=== PATIENT | male | born 1970 | race Caucasian/White ===

== ENCOUNTER 2019-03-09 01:38 | Emergency (ER) | payer BC, OTHER ==
[~2019-03-09] VITALS: Ht 177 cm; Wt 140.0 kg
--- NOTE | 2019-03-09 02:01 | ED Integumentary General ---
General Chief Complaint: Skin/Wound Problems Stated Complaint: HIVES Source: patient Exam Limitations: no limitations History of Present Illness Date Seen by Provider: Mar 09, 2019 Time Seen by Provider: 02:01 Initial Comments Patient complains of itchy rash all over her symptoms for the past 5 hours. He took Benadryl at home without relief. He is unsure of any allergen exposure. No shortness of breath or throat swelling. Allergies and Home Medications Allergies Coded Allergies: No Known Drug Allergies (Unverified , 03/09/19) Patient Home Medication List Home Medication List Reviewed: Yes Review of Systems Review of Systems Constitutional: no symptoms reported Respiratory: no symptoms reported Cardiovascular: no symptoms reported Musculoskeletal: no symptoms reported Skin: rash Psychiatric/Neurological: No Symptoms Reported All Other Systems Reviewed Negative Unless Noted: Yes Past Bleumfv-Cclvwn-Bbxwjc Hx Patient Social History Alcohol Use: Denies Use Recreational Drug Use: No Smoking Status: Never a Smoker 2nd Hand Smoke Exposure: No Recent Foreign Travel: No Contact w/Someone Who Travel: No Recent Hopitalizations: No Physical Abuse: No Sexual Abuse: No Mistreated: No Fear: No Past Medical History Surgeries: No Respiratory: No Cardiac: No Neurological: No Genitourinary: No Gastrointestinal: No Musculoskeletal: No Endocrine: No HEENT: No Cancer: No Psychosocial: No Integumentary: No Blood Disorders: No Physical Exam Vital Signs Capillary Refill : General Appearance: WD/WN, no apparent distress Neck: supple Cardiovascular: regular rate, rhythm Respiratory: lungs clear Gastrointestinal: soft Extremities: normal inspection Neurologic/Psychiatric: alert, normal mood/affect Skin: normal color, other (urticarial rash to arms and trunk) Progress/Results/Core Measures Progress Progress Note : Time: 02:05 Progress Note Medications (hives. He wants to see if it'll go away on its own. Advised to return if symptoms worsen. Departure Impression Primary Impression: Urticaria Disposition: 01 HOME, SELF-CARE Condition: Stable Departure-Patient Inst. Decision time for Depature: 02:06 Referrals: NO,LOCAL PHYSICIAN (PCP) Primary Care Physician Patient Instructions: Hives Add. Discharge Instructions: Benadryl for itching. All discharge instructions reviewed with patient and/or family. Voiced understanding. PRISCILLA DONOVAN MD Mar 09, 2019 02:01 POS
[2019-03-09 02:11] VITALS: BP 146/78
[2019-03-09] MEDS ORDERED: diphenhydrAMINE 50 MG/ML INJ (BENADRYL) IVP ONE (02:15)
[2019-03-09] MEDS ORDERED: methylPREDNISolone 125 MG (Solu-MEDROL) VIAL IVP ONE (02:15)
[2019-03-09] MEDS ORDERED: FAMOTIDINE 20MG/2ML IV (PEPCID) IVP ONE (02:15)
[2019-03-09] MEDS ORDERED: EPINEPHrine INJECTION 1 MG/ML AMP IM ONE (02:15)
== END 2019-03-09 02:13 | disposition home or self-care (01) ==
LOC: ER FS 01:41
DX: L50.9 Urticaria, unspecified (principal)
CPT/HCPCS: 99282

== ENCOUNTER → 2020-03-13 | Outpatient (CLI) | payer BC ==
--- NOTE | 2020-03-13 17:49 | Diagnostic Imaging Report ---
INDICATION: Shortness of breath and chest tightness. EXAMINATION: PA and lateral chest obtained at 03:12 p.m. FINDINGS: Heart and mediastinal silhouette are normal in appearance. There are mild chronic-appearing increased interstitial markings. There is no consolidation or pleural fluid or pneumothorax. IMPRESSION: Mild chronic-appearing changes with no acute abnormality in the chest. Dictated by: Dictated on workstation # [id number]
== END ==
LOC: RAD FS 15:05
PROVIDERS: ATTEND Nurse Practitioner Family
DX: R05 Cough (principal); R06.02 Shortness of breath
CPT/HCPCS: 71046

== ENCOUNTER 2021-10-23 17:30 | Day surgery (SDC) | payer BC, OTHER ==
[~2021-10-23] VITALS: Ht 175 cm; Wt 144.0 kg
[2021-10-23] MEDS ORDERED: NS IV 1000 ML 1,000 ML IV SCH (17:45)
[2021-10-23 17:47] LABS: BASOPHILS # (AUTO) 0.1 10^3/uL (0.0-0.1); BASOPHILS % (AUTO) 1 % (0-10); EOSINOPHILS # (AUTO) 0.2 10^3/uL (0.0-0.3); EOSINOPHILS % (AUTO) 2 % (0-10); HEMATOCRIT 46 % (40-54); HEMOGLOBIN 15.9 g/dL (13.3-17.7); LYMPHOCYTES # (AUTO) 2.1 10^3/uL (1.0-4.0); LYMPHOCYTES % (AUTO) 22 % (12-44); MEAN CORPUSCULAR HEMOGLOBIN 30 pg (25-34); MEAN CORPUSCULAR HGB CONC 34 g/dL (32-36); MEAN CORPUSCULAR VOLUME 86 fL (80-99); MONOCYTES # (AUTO) 0.7 10^3/uL (0.0-1.0); MONOCYTES % (AUTO) 7 % (0-12); NEUTROPHILS # (AUTO) 6.3 10^3/uL (1.8-7.8); NEUTROPHILS % (AUTO) 68 % (42-75); PLATELET COUNT 331 10^3/uL (130-400); WHITE BLOOD COUNT 9.3 10^3/uL (4.3-11.0)
[2021-10-23 18:06] LABS: ALANINE AMINOTRANSFERASE 41 U/L (0-55); ALBUMIN 5.1 GM/DL (3.2-4.5); ALKALINE PHOSPHATASE 82 U/L (40-136); BILIRUBIN,TOTAL 0.5 MG/DL (0.1-1.0); BUN/CREATININE RATIO 12; CARBON DIOXIDE 28 MMOL/L (21-32); CHLORIDE 99 MMOL/L (98-107); CREATININE SERUM 0.91 MG/DL (0.60-1.30); GFR ESTIMATED 101; GLUCOSE 128 MG/DL (70-105); POTASSIUM 3.5 MMOL/L (3.6-5.0); SODIUM 139 MMOL/L (135-145); TOTAL PROTEIN 7.9 GM/DL (6.4-8.2)
--- NOTE | 2021-10-23 18:14 | Diagnostic Imaging Report ---
EXAMINATION: Chest 1 view. HISTORY: Chest pain COMPARISON: 03/13/2020. FINDINGS: The lungs are clear without edema or pneumonia. No pleural effusion or pneumothorax. Heart size is normal. There are small scattered calcified granulomas in the lungs. IMPRESSION: Clear lungs. Dictated by: Dictated on workstation # [id number]
--- NOTE | 2021-10-23 18:38 | ED Chest Pain ---
General Chief Complaint: Chest Pain Stated Complaint: CHEST PAIN Source: patient, family Exam Limitations: no limitations History of Present Illness Date Seen by Provider: Oct 23, 2021 Time Seen by Provider: 17:43 Initial Comments 51-year-old male patient with history of hyperlipidemia and morbid obesity presented to ER with complaining of chest pain. Patient complaining of intermittent episodes of dizziness for the last 3 days that lasts about 60 seconds and usually happen with sitting position and associated with nausea and palpitation without focal neurodeficit and chest pain. Patient said episode of dizziness getting worse today and around 1600 he has had intermittent episodes of discomfort feeling in substernal area like indigestion that last less than 1 minute and repeated frequently. Patient said episode of pain was associated with episode of dizziness and complaining of mild shortness of breath. Patient stated he had sick contact with COVID at home but had negative COVID test today at urgent care. Patient was seen at urgent care yesterday and had EKG and seen again today with negative COVID test. Patient states he takes 1 baby aspirin daily. Patient denies fever, vomiting, diarrhea, sore throat, earache and congestion. Allergies and Home Medications Allergies Coded Allergies: No Known Drug Allergies (Unverified , 03/09/19) Patient Home Medication List Home Medication List Reviewed: Yes Review of Systems Review of Systems Constitutional: no symptoms reported EENTM: See HPI, Other (Chronic ear hearing) Respiratory: No Symptoms Reported Cardiovascular: See HPI Gastrointestinal: See HPI Genitourinary: No Symptoms Reported Musculoskeletal: no symptoms reported Skin: no symptoms reported Psychiatric/Neurological: See HPI Endocrine: No Symptoms Reported All Other Systems Reviewed Negative Unless Noted: Yes Past Helbzxg-Wkvteg-Zexypa Hx Past Medical History Surgeries: No Respiratory: No Cardiac: No Neurological: No Genitourinary: No Gastrointestinal: No Musculoskeletal: No Endocrine: No HEENT: No Cancer: No Psychosocial: No Integumentary: No Blood Disorders: No Physical Exam Vital Signs Vital Signs - First Documented 10/23/21 19:04 Temp 36.5 Pulse 107 Resp 20 B/P (MAP) 177/97 (123) Pulse Ox 97 O2 Delivery Room Air Capillary Refill : Height, Weight, BMI Height: '" Weight: lbs. oz. kg; 44.00 BMI Method: General Appearance: Anxious, Mild Distress HEENT: PERRL/EOMI, TMs Normal, Other Neck: Full Range of Motion, Normal Inspection, Non Tender Respiratory: Chest Non Tender, Lungs Clear, Normal Breath Sounds, No Accessory Muscle Use Cardiovascular: No Edema, No Gallop, No JVD, No Murmur, Normal Peripheral Pulses, Tachycardia Gastrointestinal: Normal Bowel Sounds, No Organomegaly Extremity: Normal Capillary Refill, Normal Inspection Skin: Normal Color Lymphatic: No Adenopathy Progress/Results/Core Measures Results/Orders Lab Results Laboratory Tests Test 10/23/21 17:30 10/23/21 17:36 Range/Units SARS-CoV-2 RNA (RT-PCR) Not Detected Not Detecte White Blood Count 9.3 4.3-11.0 10^3/uL Red Blood Count 5.36 4.30-5.52 10^6/uL Hemoglobin 15.9 13.3-17.7 g/dL Hematocrit 46 40-54 % Mean Corpuscular Volume 86 80-99 fL Mean Corpuscular Hemoglobin 30 25-34 pg Mean Corpuscular Hemoglobin Concent 34 32-36 g/dL Red Cell Distribution Width 13.2 10.0-14.5 % Platelet Count 331 130-400 10^3/uL Mean Platelet Volume 9.0 9.0-12.2 fL Immature Granulocyte % (Auto) 0 % Neutrophils (%) (Auto) 68 42-75 % Lymphocytes (%) (Auto) 22 12-44 % Monocytes (%) (Auto) 7 0-12 % Eosinophils (%) (Auto) 2 0-10 % Basophils (%) (Auto) 1 0-10 % Neutrophils # (Auto) 6.3 1.8-7.8 10^3/uL Lymphocytes # (Auto) 2.1 1.0-4.0 10^3/uL Monocytes # (Auto) 0.7 0.0-1.0 10^3/uL Eosinophils # (Auto) 0.2 0.0-0.3 10^3/uL Basophils # (Auto) 0.1 0.0-0.1 10^3/uL Immature Granulocyte # (Auto) 0.0 0.0-0.1 10^3/uL D-Dimer 0.47 0.00-0.49 UG/ML Sodium Level 139 135-145 MMOL/L Potassium Level 3.5 L 3.6-5.0 MMOL/L Chloride Level 99 98-107 MMOL/L Carbon Dioxide Level 28 21-32 MMOL/L Anion Gap 12 5-14 MMOL/L Blood Urea Nitrogen 11 7-18 MG/DL Creatinine 0.91 0.60-1.30 MG/DL Estimat Glomerular Filtration Rate 101 BUN/Creatinine Ratio 12 Glucose Level 128 H 70-105 MG/DL Calcium Level 10.0 8.5-10.1 MG/DL Corrected Calcium 8.5-10.1 MG/DL Magnesium Level 2.2 1.6-2.4 MG/DL Total Bilirubin 0.5 0.1-1.0 MG/DL Aspartate Amino Transf (AST/SGOT) 26 5-34 U/L Alanine Aminotransferase (ALT/SGPT) 41 0-55 U/L Alkaline Phosphatase 82 40-136 U/L Troponin I < 0.30 <0.30 NG/ML Total Protein 7.9 6.4-8.2 GM/DL Albumin 5.1 H 3.2-4.5 GM/DL My Orders Orders - REGLA SANTANA MD Cbc With Automated Diff (10/23/21 17:43) Chest 1 View Ap/Pa Only (10/23/21 17:43) Ekg Tracing (10/23/21 17:43) Comprehensive Metabolic Panel (10/23/21 17:43) Monitor-Rhythm Ecg Trace Only (10/23/21 17:43) Ed Iv/Invasive Line Start (10/23/21 17:43) Troponin I Fs (10/23/21 17:43) Ns Iv 1000 Ml (Sodium Chloride 0.9%) (10/23/21 17:45) Fibrin Degradation Products (10/23/21 17:43) Covid 19 Inhouse Test (10/23/21 17:57) Aspirin Chewable Tablet (Baby Aspirin Ch (10/23/21 18:45) Nitroglycerin 0.4 Mg Btl 25's (Nitrostat (10/23/21 18:45) Ondansetron Injection (Zofran Injectio (10/23/21 18:45) Lorazepam Injection (Ativan Injection) (10/23/21 19:15) Metoprolol Tartrate (Ir) Tab (Lopressor (10/23/21 19:30) Magnesium (10/23/21 19:30) Ed Admission (Communication) (10/23/21 19:39) Medications Given in ED Current Medications Medications Dose Ordered Sig/Reagan Route Start Time Stop Time Status Last Admin Dose Admin Aspirin 243 mg ONCE ONCE PO 10/23/21 18:45 10/23/21 18:46 DC 10/23/21 18:57 243 MG Lorazepam 1 mg ONCE ONCE IVP 10/23/21 19:15 10/23/21 19:17 DC 10/23/21 19:26 1 MG Metoprolol Tartrate 25 mg ONCE ONCE PO 10/23/21 19:30 10/23/21 19:31 DC 10/23/21 19:45 25 MG Ondansetron HCl 4 mg ONCE ONCE IVP 10/23/21 18:45 10/23/21 18:46 DC 10/23/21 18:57 4 MG Vital Signs/I&O 10/23/21 19:04 Temp 36.5 Pulse 107 Resp 20 B/P (MAP) 177/97 (123) Pulse Ox 97 O2 Delivery Room Air Progress Progress Note : Progress Note Evaluation of patient in ER showed 51-year-old male patient with complaining of intermittent episodes of substernal pain and dizziness. Patient had mild sinus tachycardia. CBC and CMP and COVID test was unremarkable. Chest x-ray did not show acute finding. EKG showed sinus tachycardia with unremarkable ST and T wave changes. Cardiac enzyme and CBC and CMP was unremarkable. Patient had 2 episodes of V. tach without loss of consciousness that lasted about less than 10 stated and documented in monitor. Patient felt dizzy at that time and treated with Zofran and Ativan and felt better. Dr. Hudson on-call robotic weld technician was consulted at 1927 and recommended to give patient metoprolol 25 mg p.o. 1 dose and admit patient to hospitalist at cardiac stepdown. Dr. Ceballos on-call hospitalist accepted admission at 1925. Patient and his daughter informed about test results and plan of care and need for admission and all questions addressed. Initial ECG Impression Date: Oct 23, 2021 Initial ECG Impression Time: 17:36 Comment EKG interpreted by me. EKG at 1736 showed sinus tachycardia with occasional PVCs at rate of 118, OR interval of 158 and QT interval of 321, no acute ST and T wave elevation. Diagnostic Imaging Plain Films/CT/US/NM/MRI: chest Comments Chest x-ray interpreted by radiologist and reviewed by me and showed: NAME[facility] REC#: [id number] PT STATUS: REG ER : 1970 PHYSICIAN: REGLA SANTANA MD ADMIT DATE: 10/23/21/ER FS Signed Date of Exam:10/23/21 CHEST 1 VIEW AP/PA ONLY EXAMINATION: Chest 1 view. HISTORY: Chest pain COMPARISON: 03/13/2020. FINDINGS: The lungs are clear without edema or pneumonia. No pleural effusion or pneumothorax. Heart size is normal. There are small scattered calcified granulomas in the lungs. IMPRESSION: Clear lungs. Dictated by: Dictated on workstation # [id number] Dict: 10/23/211810 Trans: 10/23/211811 [id number] Interpreted by: MARTHA BILLS MD Electronically signed by: MARTHA BILLS MD 10/23/211811 Departure Communication (Admissions) Time/Spoke to Admitting Phy: 19:26 Dr. Ceballos hospitalist accepted admission. Time/Spoke to Consulting Phy: 19:28 Dr. Hudson on-call robotic weld technician recommended to give metoprolol tartrate 25 mg p.o. and admitted to cardiac stepdown. Impression Primary Impression: Paroxysmal VT Additional Impressions: Chest pain Qualified Codes: R07.9 - Chest pain, unspecified Sinus tachycardia Morbid obesity Dizziness Disposition: 30 STILL A PATIENT Condition: Improved Admissions Decision to Admit Reason: Admit from ER (General) Decision to Admit/Date: Oct 23, 2021 Time/Decision to Admit Time: 19:28 Departure-Patient Inst. Referrals: COLIN LUA MD (PCP) Primary Care Physician REGLA SANTANA MD Oct 23, 2021 18:38
[2021-10-23] MEDS ORDERED: NITROGLYCERIN 0.4 MG SL TABS BTL 25'S SL ONE (18:45)
[2021-10-23] MEDS ORDERED: ASPIRIN 81 MG CHEW (CHILDREN'S ASA) PO ONE (18:45)
[2021-10-23] MEDS ORDERED: ONDANSETRON 4 MG/2 ML (SDV) Z0FRAN IVP ONE (18:45)
[2021-10-23] MEDS ORDERED: LORazepam INJ 2 MG/ML (ATIVAN) VIAL IVP ONE (19:15)
[2021-10-23] MEDS ORDERED: meTOprolol TARTRATE 25 MG (LOPRESSOR) TABLET PO ONE (19:30)
[2021-10-23 22:27] VITALS: BP 147/91
[2021-10-23] MEDS ORDERED: BISACODYL 10 MG SUPP (DULCOLAX) PR PRN (22:30)
[2021-10-23] MEDS ORDERED: diphenhydrAMINE 50 MG/ML INJ (BENADRYL) IVP PRN (22:30)
[2021-10-23] MEDS ORDERED: polyethylene glycoL POWDER 17 GM (MIRALAX) PACK PO PRN (22:30)
[2021-10-23] MEDS ORDERED: diphenhydrAMINE 25 MG TAB (BENADRYL) PO PRN (22:30)
[2021-10-23] MEDS ORDERED: MELATONIN 3 MG TABLET PO PRN (22:30)
[2021-10-23] MEDS ORDERED: ONDANSETRON 4 MG (ZOFRAN) ORAL DISSOLVE TAB PO PRN (22:30)
[2021-10-23 23:00] VITALS: BP 134/93
[2021-10-23] MEDS: ALPRAZolam 0.25 MG (XANAX) TAB PO PRN (23:28)
[2021-10-23] MEDS: ACETAMINOPHEN 325 MG TABLET PO PRN (23:28)
[2021-10-23] MEDS: ONDANSETRON 4 MG/2 ML (SDV) Z0FRAN IV PRN (23:29)
[2021-10-23] MEDS: ANTACID SUSP 30 ML UDC (MYLANTA) PO PRN (23:29)
--- NOTE | 2021-10-23 23:58 | Tele-ICU Consult ---
History of Present Illness History of Present Illness Date Seen by Provider: Oct 23, 2021 Time Seen by Provider: 23:52 History of Present Illness 51 yo M admitted to cardiac stepdown/ICU for NSVT, given po metoprolol also c/o dizziness and vomiting Hx of anxiety, on Xanax May have been exposed to COVID but serology is negative Allergies and Home Medications Allergies Coded Allergies: No Known Drug Allergies (Unverified , 03/09/19) Past Medical/Social/Family Hx Patient Social History Tobacco Use?: No Substance use?: No Alcohol Use?: No Pt stated abuse/neglect: No Immunizations Up To Date First/Initial COVID19 Vaccinat: Yes Second COVID19 Vaccination Steve: Yes Current Status Advance Directives: No Primary Language: Romanian Preferred Spoken Language: Romanian Review of Systems Constitutional: see HPI EENTM: see HPI Respiratory: see HPI Cardiovascular: see HPI Gastrointestinal: see HPI Genitourinary: see HPI Musculoskeletal: see HPI Skin: see HPI Psychiatric/Neurological: See HPI Focused Exam Height, Weight, BMI Height: '" Weight: lbs. oz. kg; 47.02 BMI Method: Exam Exam Patient acknowledged, consented, and participated in this virtual visit which was conducted using real time audio/video Vital Signs Date Time Temp Pulse Resp B/P (MAP) Pulse Ox O2 Delivery O2 Flow Rate FiO2 10/23/21 23:00 89 12 134/93 (107) 91 Room Air 10/23/21 22:35 63 10/23/21 22:27 37.0 98 14 147/91 (109) 92 Room Air 10/23/21 22:25 98 18 124/83 98 Room Air 10/23/21 19:04 36.5 107 20 177/97 (123) 97 Room Air Height & Weight Height: '" Weight: lbs. oz. kg; 47.02 BMI Method: General Appearance: Anxious, Mild Distress HEENT: PERRL/EOMI, TMs Normal, Other Neck: Full Range of Motion, Normal Inspection, Non Tender Respiratory: Chest Non Tender, Lungs Clear, Normal Breath Sounds, No Accessory Muscle Use Cardiovascular: Regular Rate, Rhythm, No Edema, No Gallop, No JVD, No Murmur, Normal Peripheral Pulses, Tachycardia Capillary Refill: Less Than 3 Seconds Gastrointestinal: normal bowel sounds Extremity: Normal Capillary Refill, Normal Inspection Skin: Normal Color Lymphatic: No Adenopathy Results Lab Laboratory Tests 10/23/21 17:36 Assessment/Plan Assessment/Plan NSVT, has received metoprolol Also of note Hb 15.9 suggesting reactive polycythemia, ie RUPINDER given morbid obesity Critical Care: Critically Ill Patient Time spent with patient (mins): 25 REBEKAH ARBOLEDA MD Oct 23, 2021 23:58
[2021-10-24] VITALS (13 sets, daily range): BP systolic 105–153; BP diastolic 62–91
[2021-10-24] MEDS ORDERED: meTOprolol 5 MG/5 ML (LOPRESSOR) VIAL IV ONE (00:30)
[2021-10-24] MEDS ORDERED: KCL 20 MEQ TAB (K-DUR) PO ONE (00:30)
[2021-10-24] MEDS ORDERED: POTASSIUM CL 10MEQ/50ML IVPB 100 ML IV ONE (00:33)
[2021-10-24] MEDS: POTASSIUM CL 10MEQ/50ML IVPB 50 ML IV SCH ×3 (00:45→05:20)
[2021-10-24] MEDS ORDERED: NS IV 500 ML 500 ML ONE (00:57)
[2021-10-24] MEDS ORDERED: NS IV 500 ML 500 ML IV ONE (01:15)
[2021-10-24 04:27] LABS: HEMATOCRIT 42 % (40-54); HEMOGLOBIN 14.3 g/dL (13.3-17.7); MEAN CORPUSCULAR HEMOGLOBIN 30 pg (25-34); MEAN CORPUSCULAR HGB CONC 34 g/dL (32-36); MEAN CORPUSCULAR VOLUME 88 fL (80-99); MEAN PLATELET VOLUME 9.1 fL (9.0-12.2); PLATELET COUNT 277 10^3/uL (130-400); WHITE BLOOD COUNT 8.4 10^3/uL (4.3-11.0)
[2021-10-24 04:53] LABS: BILIRUBIN,TOTAL 0.5 MG/DL (0.1-1.0); CREATININE SERUM 0.86 MG/DL (0.60-1.30); MAGNESIUM 2.2 MG/DL (1.6-2.4); POTASSIUM 4.1 MMOL/L (3.6-5.0); TOTAL PROTEIN 6.6 GM/DL (6.4-8.2)
[2021-10-24] MEDS: KCL 20 MEQ TAB (K-DUR) PO SCH (05:21)
[2021-10-24] MEDS: MAGNESIUM 1 GM/100 ML IVPB 100 ML IV SCH (05:21)
[2021-10-24] MEDS: inSUlin ASPART (NovoLOG) 1 UNIT/0.01 ML (CHARGE PER UNIT) SC SCH ×4 (05:21→21:02)
--- NOTE | 2021-10-24 07:06 | History & Physical-Hospitalist ---
History of Present Illness HPI/Chief Complaint CC: Chest pain with VT episodes HPI: This is a 51yoWM clinic patient of Dr Arriaga who presented to the ER with episodes of chest pain with VT on w/u. He reports these "episodes" have been occurring on/off for "years." Dr Hudson evaluated him and will need cath tomorrow. He is non-compliant with CPAP. Source: patient Exam Limitations: no limitations Date Seen 10/24/21 Time Seen by a Provider: 11:00 Attending Physician Zackary Arriaga MD PCP Admitting Physician: Ayaka Ceballos MD Attending Physician: Alma Rosa Vyas DO Referring Physician Date of Admission Oct 23, 2021 at 22:07 Home Medications & Allergies Home Medications Reviewed patient Home Medication Reconciliation performed by pharmacy medication reconciliations durable medical equipment technician and/or nursing. Patients Allergies have been reviewed. Allergies Allergies Coded Allergies No Known Drug Allergies (Agnkqgapkk17/7/19) Past Jeljsik-Eocwca-Pxrbpu Hx Patient Social History Marrital Status: single Employed/Student: unemployed Tobacco Use?: No Smoking Status: Never a Smoker Substance use?: No Alcohol Use?: No Pt feels they are or have been: No Immunizations Up To Date First/Initial COVID19 Vaccinat: Yes Second COVID19 Vaccination Steve: Yes Current Status Advance Directives: No Primary Language: Djiboutian Preferred Spoken Language: Djiboutian Past Medical History Sleep Apnea Currently Using CPAP: No Currently Using BIPAP: No High Cholesterol, Hypertension Blood Disorders: No Review of Systems Constitutional: see HPI Cardiovascular: chest pain, palpitations Physical Exam Physical Exam Vital Signs Vital Signs - First Documented 10/23/21 10/24/21 19:04 09:00 Temp 36.5 Pulse 107 Resp 20 B/P (MAP) 177/97 (123) Pulse Ox 97 O2 Delivery Room Air O2 Flow Rate 2.00 Capillary Refill : Less Than 3 Seconds Height, Weight, BMI Height: '" Weight: lbs. oz. kg; 47.02 BMI Method: General Appearance: No Apparent Distress, Chronically ill, Obese Eyes: Right Eye Normal Inspection, Right Eye PERRL HEENT: PERRL/EOMI, Normal ENT Inspection, Pharynx Normal, Moist Mucous Membranes Neck: Full Range of Motion, Normal Inspection, Non Tender Respiratory: Chest Non Tender, Lungs Clear, Normal Breath Sounds, No Accessory Muscle Use, No Respiratory Distress Cardiovascular: Regular Rate, Rhythm, No Edema, No Gallop, No JVD, No Murmur, Normal Peripheral Pulses Gastrointestinal: Normal Bowel Sounds, No Organomegaly, No Pulsatile Mass, Non Tender, Soft Back: Normal Inspection, No CVA Tenderness, No Vertebral Tenderness Extremity: Normal Capillary Refill, Normal Inspection, Normal Range of Motion, Non Tender, No Calf Tenderness, No Pedal Edema Neurologic/Psychiatric: Alert, Oriented x3, No Motor/Sensory Deficits, Normal Mood/Affect Skin: Normal Color, Warm/Dry Lymphatic: No Adenopathy Results Results/Procedures Labs Laboratory Tests 10/23/21 17:36 10/24/21 03:54 Patient resulted labs reviewed. Assessment/Plan Admission Diagnosis Assessment: Chest pain VT RUPINDER non-compliant with CPAP Obesity BMI 47 HTN HLP Plan: Cath Dr Hudson Admission Status: Observation Diagnosis/Problems Diagnosis/Problems (1) Chest pain Qualifiers: Chest pain type: unspecified Qualified Codes: R07.9 - Chest pain, unspecified (2) Dizziness Status: Acute (3) Paroxysmal VT Status: Acute (4) Obstructive sleep apnea of adult Status: Chronic (5) Mixed hyperlipidemia Status: Chronic (6) Morbid obesity Status: Chronic Clinical Quality Measures AMI/AHF: ASA po Prior to arrival: Yes (81mg) ALMA ROSA VYAS DO Oct 24, 2021 07:06
[2021-10-24] MEDS: ONDANSETRON 4 MG/2 ML (SDV) Z0FRAN IV PRN ×2 (07:30→13:46)
[2021-10-24] MEDS: ANTACID SUSP 30 ML UDC (MYLANTA) PO PRN (08:39)
[2021-10-24] MEDS: ALPRAZolam 0.25 MG (XANAX) TAB PO PRN (08:39)
[2021-10-24] MEDS: DOCUSATE SODIUM 100 MG (COLACE) CAP PO SCH ×2 (08:40→21:03)
[2021-10-24] MEDS: ENOXAPARIN 40 MG/0.4 ML (LOVENOX) SYR SC SCH ×2 (08:40→21:02)
--- NOTE | 2021-10-24 09:25 | Consultation-Cardiology ---
HPI-Cardiology Cardiology Consultation: Date of Consultation 10/24/21 Date of Admission 10/23/21 Attending Physician Zackary Arriaga MD Admitting Physician Admitting Physician: Ayaka Ceballos MD Attending Physician: Alma Rosa Pop DO Consulting Physician ROSALINDA PIÑA JR, MD HPI: Time Seen by a Provider: 09:21 Chief Complaint: REASON FOR CONSULTATION: Ventricular tachycardia. I had the pleasure of seeing Hiren at [facility] in [place], [place] this morning. He has no known history of coronary artery disease. His only major cardiac risk factor is hyperlipidemia. For the past couple of years he has been having intermittent lightheaded spells. This will make him feel short of breath. This will just come out of the blue. This will resolve within 60 seconds. This would only happen once or twice per month. At one point, he mentioned this to his primary provider and he was referred for a cardiology evaluation with one of my patients. However, the physician had to leave town unexpectedly and the appointment never got rescheduled. Then last week he started having these episodes of lightheadedness and shortness of breath much more frequently. This was happening multiple times per day. This was also causing nausea. Nothing seemed to bring this on but yesterday after he ate these symptoms became more severe and he went to the [facility] emergency room. During his evaluation, he was found to have nonsustained ventricular tachycardia on the environmental monitoring technician. Because of this, he was transferred to our hospital for further evaluation. I did have the emergency room given 1 dose of Metroprolol tartrate orally. Last night he had another run of nonsustained ventricular tachycardia and I gave him 1 dose of intravenous metoprolol. Since that dose of beta-chandler, he has not had any recurrent ventricular tachycardia. He denies any chest discomfort. He denies paroxysmal nocturnal dyspnea, orthopnea, or syncope. He does not really seem to be having palpitations with these episodes. He has chronic, intermittent lower extremity edema. Because of the ventricular tachycardia, a cardiology consultation was requested. Certain portions of this document may have been dictated utilizing voice recognition technology. Inherent to this technology, typographical and grammatical errors may exist. As much as I am diligent to identify and correct these mistakes, some errors may remain in the document. Review of Systems-Cardiology Review of Systems Other comments Review of 10 organ systems is as per the history of present illness, otherwise negative. All Other Systems Reviewed Negative Unless Noted: Yes YGT-Drjmdv-Vtlenz Hx Patient Social History Marrital Status: Employed/Student: employed 2nd Hand Smoke Exposure: No Have you traveled recently?: No Alcohol Use?: No Pt feels they are or have been: No Past Medical History PMH As described under Assessment. Family Medical History Family Medical History: His brother has atrial fibrillation but he does not know of any family history of premature coronary artery disease in first-degree relatives. Allergies and Home Medications Allergies Coded Allergies: No Known Drug Allergies (Unverified , 03/09/19) Patient Home Medication List Home Medication List Reviewed: Yes Exam Vital Signs Vital Signs Date Time Temp Pulse Resp B/P (MAP) Pulse Ox O2 Delivery O2 Flow Rate FiO2 10/24/21 08:00 83 12 153/91 (111) 95 Room Air 10/24/21 07:45 36.7 Physical Exam General: Alert. No acute distress. Well nourished and appears stated age. He is morbidly obese. Eye: Extraocular movements are intact. Conjunctivae are clear. There are no xanthelasma. HENT: Normocephalic. Atraumatic. Carotid pulsations 2/2 without bruits. Neck: Jugular venous pressure does not appear elevated. No thyromegaly appreciated. Respiratory: Lungs are clear to auscultation. Respirations are non-labored. Breath sounds are equal. Symmetrical chest wall expansion. Cardiovascular: Normal rate. Regular rhythm. No murmur. No gallop. Point of maximal impulse is not appear displaced. Good pulses equal in all extremities. No edema. Gastrointestinal: Soft. Normal bowel sounds. Skin: Skin turgor is normal. There is no pallor. Musculoskeletal: No kyphosis or scoliosis appreciated. Neurologic: Alert and oriented to person, place, time. Cranial nerves 3-12 appear grossly intact. The patient has good motor tone strength in the upper and lower extremities bilaterally. Psychiatric: Cooperative. Appropriate mood & affect. Labs Laboratory Tests Test 10/23/21 17:30 10/23/21 17:36 10/23/21 22:33 10/24/21 03:54 Range/Units SARS-CoV-2 RNA (RT-PCR) Not Detected Not Detecte White Blood Count 9.3 8.4 4.3-11.0 10^3/uL Red Blood Count 5.36 4.83 4.30-5.52 10^6/uL Hemoglobin 15.9 14.3 13.3-17.7 g/dL Hematocrit 46 42 40-54 % Mean Corpuscular Volume 86 88 80-99 fL Mean Corpuscular Hemoglobin 30 30 25-34 pg Mean Corpuscular Hemoglobin Concent 34 34 32-36 g/dL Red Cell Distribution Width 13.2 13.2 10.0-14.5 % Platelet Count 331 277 130-400 10^3/uL Mean Platelet Volume 9.0 9.1 9.0-12.2 fL Immature Granulocyte % (Auto) 0 % Neutrophils (%) (Auto) 68 42-75 % Lymphocytes (%) (Auto) 22 12-44 % Monocytes (%) (Auto) 7 0-12 % Eosinophils (%) (Auto) 2 0-10 % Basophils (%) (Auto) 1 0-10 % Neutrophils # (Auto) 6.3 1.8-7.8 10^3/uL Lymphocytes # (Auto) 2.1 1.0-4.0 10^3/uL Monocytes # (Auto) 0.7 0.0-1.0 10^3/uL Eosinophils # (Auto) 0.2 0.0-0.3 10^3/uL Basophils # (Auto) 0.1 0.0-0.1 10^3/uL Immature Granulocyte # (Auto) 0.0 0.0-0.1 10^3/uL D-Dimer 0.47 0.00-0.49 UG/ML Sodium Level 139 142 135-145 MMOL/L Potassium Level 3.5 L 4.1 3.6-5.0 MMOL/L Chloride Level 99 106 98-107 MMOL/L Carbon Dioxide Level 28 22 21-32 MMOL/L Anion Gap 12 14 5-14 MMOL/L Blood Urea Nitrogen 11 10 7-18 MG/DL Creatinine 0.91 0.86 0.60-1.30 MG/DL Estimat Glomerular Filtration Rate 101 104 BUN/Creatinine Ratio 12 12 Glucose Level 128 H 99 70-105 MG/DL Calcium Level 10.0 9.0 8.5-10.1 MG/DL Corrected Calcium 9.0 8.5-10.1 MG/DL Magnesium Level 2.2 2.2 1.6-2.4 MG/DL Total Bilirubin 0.5 0.5 0.1-1.0 MG/DL Aspartate Amino Transf (AST/SGOT) 26 19 5-34 U/L Alanine Aminotransferase (ALT/SGPT) 41 35 0-55 U/L Alkaline Phosphatase 82 63 40-136 U/L Troponin I < 0.30 < 0.028 <0.028 NG/ML Total Protein 7.9 6.6 6.4-8.2 GM/DL Albumin 5.1 H 4.0 3.2-4.5 GM/DL Triglycerides Level 154 H <150 MG/DL Cholesterol Level 140 < 200 MG/DL LDL Cholesterol Direct 87 1-129 MG/DL VLDL Cholesterol 31 5-40 MG/DL HDL Cholesterol 32 L 40-60 MG/DL ECG Impression ECG Comment Electrocardiogram from the emergency room on 10/23 showed sinus tachycardia at 118 bpm with 1 isolated premature supraventricular complexes, otherwise unremarkable tracing. Diagnosis/Problems Diagnosis/Problems (1) Ventricular tachycardia Status: Acute Assessment & Plan: Exact etiology unclear. There is no evidence of Lxxjr-Oyiuzheil-Vjnyv, Brugada syndrome or prolonged or short QT on his resting electrocardiogram. This raises a concern for ischemic heart disease or car diomyopathy. I will start him on metoprolol succinate. He should continue on aspirin which he was taking at home. I will plan on an echocardiogram and cardiac catheterization tomorrow. If he starts having more frequent ventricular tachycardia, I would plan to give him intravenous beta-chandler. If this does not get the situation under control, we may need a short course of intravenous antiarrhythmic drug. However, as of now, the oral beta-chandler seems to be keeping the ventricular tachycardia under control. I did explain the benefits and risks of a cardiac catheterization to the patient and his family and they are in agreement to proceed. (2) Mixed hyperlipidemia Status: Chronic Assessment & Plan: Continue statin medication. (3) Obstructive sleep apnea of adult Status: Chronic Assessment & Plan: He has not used his CPAP in a number of years because the prescription . He is working to get new equipment. Sleep apnea can cause ventricular ectopy but usually as isolated premature ventricular complexes and not ventricular tachycardia. (4) Morbid obesity Status: Chronic Assessment & Plan: He needs to work on weight loss. ROSALINDA PIÑA JR, MD Oct 24, 2021 09:25
[2021-10-24] MEDS: meTOproloL SUCCINATE 50 MG (TOPROL XL) TAB PO SCH (09:35)
[2021-10-24] MEDS: ASPIRIN E.C. 81 MG (ECOTRIN) TAB PO SCH (09:35)
[2021-10-24] MEDS: PROMETHAZINE INJ 25 MG/ML (PHENERGAN) AMP IM PRN ×2 (09:54→23:05)
[2021-10-24] MEDS: ALPRAZolam 0.5 MG (XANAX) TAB PO PRN ×2 (13:46→21:16)
[2021-10-24] MEDS: ACETAMINOPHEN 325 MG TABLET PO PRN (13:47)
[2021-10-24] MEDS ORDERED: ASPI-1238 PO (18:32)
[2021-10-24] MEDS ORDERED: ATOR10TA66 PO (18:39)
[2021-10-24] MEDS ORDERED: RT-ALBUINH IH (18:39)
[2021-10-24] MEDS ORDERED: OMEP40CA6 PO (18:39)
[2021-10-24] MEDS ORDERED: FLUT1DIS26 IH (18:39)
[2021-10-24] MEDS ORDERED: ALPR0.254 PO (18:39)
[2021-10-24] MEDS ORDERED: LEVO50CA4 PO (18:39)
[2021-10-24] MEDS ORDERED: PREG75CA PO (18:39)
[2021-10-24] MEDS: MUPIROCIN 2% OINT 22 GM (BACTROBAN) TUBE NSEACH SCH (21:24)
[2021-10-25] VITALS (8 sets, daily range): BP systolic 112–144; BP diastolic 71–96
[2021-10-25 04:46] LABS: MAGNESIUM 2.3 MG/DL (1.6-2.4)
[2021-10-25 04:50] LABS: ALBUMIN 4.2 GM/DL (3.2-4.5)
[2021-10-25 04:51] LABS: POTASSIUM 3.8 MMOL/L (3.6-5.0)
[2021-10-25 04:52] LABS: CALCIUM 8.9 MG/DL (8.5-10.1)
[2021-10-25 04:53] LABS: TOTAL PROTEIN 6.9 GM/DL (6.4-8.2)
[2021-10-25 04:55] LABS: BILIRUBIN,TOTAL 0.5 MG/DL (0.1-1.0)
[2021-10-25 04:57] LABS: CREATININE SERUM 0.95 MG/DL (0.60-1.30)
[2021-10-25] MEDS: MAGNESIUM 1 GM/100 ML IVPB 100 ML IV SCH (06:35)
[2021-10-25] MEDS: KCL 20 MEQ TAB (K-DUR) PO SCH (06:35)
[2021-10-25] MEDS: POTASSIUM CL 10MEQ/50ML IVPB 50 ML IV SCH (06:35)
[2021-10-25] MEDS: inSUlin ASPART (NovoLOG) 1 UNIT/0.01 ML (CHARGE PER UNIT) SC SCH ×2 (06:35→11:23)
[2021-10-25] MEDS ORDERED: fentaNYL INJ 100 MCG/2 ML AMP ONE (07:53)
[2021-10-25] MEDS ORDERED: MIDAZOLAM 5 MG/5 ML (VERSED) VIAL ONE (07:53)
[2021-10-25] MEDS ORDERED: VERAPAMIL 5 MG/2 ML (CALAN) VIAL IV ONE (07:53)
[2021-10-25] MEDS ORDERED: NITRO DRIP 25000 MCG/D5W 250 ML IV ONE (07:54)
[2021-10-25] MEDS ORDERED: HEParin 1000 UNIT/ML (10ML VIAL) FOR BOLUS ONE (07:54)
[2021-10-25] MEDS ORDERED: LIDOCAINE 1% INJ 20 ML VIAL ONE (07:54)
[2021-10-25] MEDS ORDERED: HEParin (CATH LAB) 1,000 ML IV ONE ×2 (07:54→07:57)
[2021-10-25] MEDS ORDERED: NS IV 1000 ML 1,000 ML IV ONE (08:00)
--- NOTE | 2021-10-25 08:33 | Pre-Op Note & Conscious Sedat ---
Pre-Operative Progress Note H&P Reviewed The H&P was reviewed, patient examined and no changes noted. Date H&P Reviewed: Oct 25, 2021 Time H&P Reviewed: 08:32 Pre-Op Diagnosis: Ventricular tachycardia Given his current clinical status, he is considered vulnerable. He does not have any history of heart failure. Conscious Sedation Pre-Proced ASA Score 2 For ASA 3 and 4: Consider anesthesia and medical clearance. Also, for patients with a history of failed moderate sedation consider anesthesia. Airway Lungs Heart ASA score ASA 1: a normal healthy patient ASA 2: a patient with a mild systemic disease (mid diabetes, controlled hypertension, obesity ASA 3: a patient with a severe systemic disease that limits activity (angina, COPD, prior Myocardial infarction) ASA 4: a patient with an incapacitating disease that is a constant threat to life (CHF, renal failure) ASA 5: a moribund patient not expected to survive 24 hrs. (ruptured aneurysm) ASA 6: a declared brain- patient whose organs are being harvested. For emergent operations, add the letter E after the classification Mallampati Classification Grade 3 Sedation Plan Analgesia, Amnesia, Plan communicated to team members, Discussed options with patient/fam, Discussed risks with patient/fam The patient is an appropriate candidate to undergo the planned procedure, sedation, and anesthesia. The patient immediately re-assessed prior to indication. ROSALINDA PIÑA JR, MD Oct 25, 2021 08:33
--- NOTE | 2021-10-25 09:00 | Cardiology Progress Note ---
Progress Note-Cardiology Events since last exam Date Seen by Provider: Oct 25, 2021 Time Seen by Provider: 08:58 Events since last exam I am following him due to ventricular tachycardia. He has not had any further ventricular tachycardia since starting on oral beta-chandler. He denies chest discomfort, dyspnea at rest, palpitations, syncope, or ankle edema. He is anxious about his cardiac catheterization. Certain portions of this document may have been dictated utilizing voice recognition technology. Inherent to this technology, typographical and grammatical errors may exist. As much as I am diligent to identify and correct these mistakes, some errors may remain in the document. Vitals Last set of Vitals Signs Vital Signs 10/24/21 10/25/21 09:00 14:36 Temp 36.5 Pulse 70 Resp 12 B/P (MAP) 131/75 Pulse Ox 90 O2 Delivery Room Air O2 Flow Rate 2.00 Labs Labs Laboratory Tests 10/25/21 03:43 Exam Vital Signs Vital Signs Date Time Temp Pulse Resp B/P (MAP) Pulse Ox O2 Delivery O2 Flow Rate FiO2 10/25/21 14:36 36.5 70 12 131/75 90 Room Air 10/24/21 09:00 2.00 Physical Exam General: Alert. No acute distress. Eye: No xanthelasma. HENT: Normocephalic. Neck: Jugular venous pressure does not appear elevated. Respiratory: Lungs are clear to auscultation. Respirations are non-labored. Breath sounds are equal. Symmetrical chest wall expansion. Cardiovascular: Normal rate. Regular rhythm. Distant S1/S2. No murmur. No gallop. No edema. Gastrointestinal: Soft. Normal bowel sounds. Skin: Warm. Dry. Neurologic: Alert and oriented to person, place, time. Cranial nerves 3-11 grossly intact. Psychiatric: Cooperative. Appropriate mood & affect. Labs Laboratory Tests Test 10/24/21 16:14 10/24/21 21:00 10/25/21 03:43 10/25/21 11:12 Range/Units Glucometer 97 88 94 70-110 MG/DL Sodium Level 138 135-145 MMOL/L Potassium Level 3.8 3.6-5.0 MMOL/L Chloride Level 103 98-107 MMOL/L Carbon Dioxide Level 22 21-32 MMOL/L Anion Gap 13 5-14 MMOL/L Blood Urea Nitrogen 13 7-18 MG/DL Creatinine 0.95 0.60-1.30 MG/DL Estimat Glomerular Filtration Rate 96 BUN/Creatinine Ratio 14 Glucose Level 88 70-105 MG/DL Calcium Level 8.9 8.5-10.1 MG/DL Corrected Calcium 8.7 8.5-10.1 MG/DL Magnesium Level 2.3 1.6-2.4 MG/DL Total Bilirubin 0.5 0.1-1.0 MG/DL Aspartate Amino Transf (AST/SGOT) 25 5-34 U/L Alanine Aminotransferase (ALT/SGPT) 37 0-55 U/L Alkaline Phosphatase 64 40-136 U/L Total Protein 6.9 6.4-8.2 GM/DL Albumin 4.2 3.2-4.5 GM/DL Radiology CARDIAC CATHETERIZATION (10/25/2021): 1. Normal left heart pressures. 2. Angiographically normal-appearing coronary arteries in a left dominant system. There is a possible fistula connecting the right coronary artery to an unknown cardiac chamber or possibly the ascending aorta. This is likely an incidental finding of no clinical significance. 3. The patient is known to have normal left ventricular systolic function with an estimated ejection fraction of 55-60% by echocardiogram performed earlier today. ECHOCARDIOGRAM (10/25/2021): 1. This is a technically difficult study due to poor image quality secondary to patient's body habitus. Intravenous contrast was administered to enhance image quality. 2. Left ventricle: The cavity size is normal. There is moderate concentric hypertrophy. Systolic function is normal. The estimated ejection fraction is 55- 60%. Left ventricular diastolic function parameters are normal. 3. Regional wall motion abnormality: Hypokinesis of the mid inferoseptal myocardium. 4. Pulmonary arteries: The estimated pulmonary artery systolic pressure is 31 mmHg assuming a right atrial pressure of 5 mmHg. Diagnosis/Problems Diagnosis/Problems (1) Ventricular tachycardia Status: Acute Assessment & Plan: Exact etiology unclear. There is no evidence of Yjiwe-Tuysibmws-Gkcgu, Brugada syndrome or prolonged or short QT on his resting electrocardiogram. His echocardiogram shows normal ejection fraction and normal right ventricular function. His cardiac catheterization did not show any significant coronary artery disease. The ventricular tachycardia seems to have resolved with beta-chandler. Arrhythmogenic right ventricular dysplasia and other less common myocardial diseases are in the differential diagnosis for ventricular tachycardia. From a cardiac standpoint, he can be discharged home on the metoprolol succinate. I have ordered a cardiac MRI with contrast to be done as an outpatient. I have also ordered a 2-week mobile cardiac outpatient monitoring tech. He will follow-up in the office with me after these tests are done. (2) Mixed hyperlipidemia Status: Chronic Assessment & Plan: Continue statin medication. (3) Obstructive sleep apnea of adult Status: Chronic Assessment & Plan: He has not used his CPAP in a number of years because the p rescription . He is working to get new equipment. Sleep apnea can cause ventricular ectopy but usually as isolated premature ventricular complexes and not ventricular tachycardia. (4) Morbid obesity Status: Chronic Assessment & Plan: He needs to work on weight loss. ROSALINDA PIÑA JR, MD Oct 25, 2021 09:00
--- NOTE | 2021-10-25 09:53 | Cardiac Cath Report ---
CARDIAC CATHETERIZATION DATE OF PROCEDURE: 10/25/2021 INDICATION: Ventricular tachycardia. HISTORY: The patient is a 51 year old male with no previously known history of coronary artery disease who presented to the hospital with lightheadedness and shortness of breath. During his evaluation, he was found to have nonsustained ventricular tachycardia. This resolved with initiation of therapy with beta- chandler. He also underwent an echocardiogram that showed a normal ejection fraction. In light of the ventricular tachycardia, he is now referred for further evaluation with a cardiac catheterization. Given the patient's current clinical status, he is considered vulnerable. He does not have any history of heart failure. PROCEDURES PERFORMED: 1. Left heart catheterization with hemodynamic measurements. 2. Diagnostic crow coronary angiography. PROCEDURE DESCRIPTION: After informed consent and in the fasting state, left heart catheterization was performed through the right radial artery utilizing a 6 Pashto system by percutaneous approach. Standard 5 Pashto Fanny catheters were utilized for the diagnostic portion of the procedure. All catheters were exchanged over a guidewire. Following the procedure, a vascular band was appl ied to the radial artery access site and the sheath was removed with good hemostasis. RESULTS: HEMODYNAMICS: The aortic pressure was 128/82 mmHg. The left ventricular pressure was 157/0 mmHg with a left ventricular end-diastolic pressure of 7 mmHg. There was no significant pressure gradient upon pullback across aortic valve. CORONARY ANGIOGRAPHY: Left main coronary artery: Free of significant disease. Left anterior descending coronary artery: Free of significant disease. Left circumflex coronary artery: Dominant and free of significant disease. Right coronary artery: Small, nondominant and free of significant disease. Ther e is a possible fistula connecting the right coronary artery to an unknown cardiac chamber or possibly the ascending aorta. IMPRESSION: 1. Normal left heart pressures. 2. Angiographically normal-appearing coronary arteries in a left dominant system. There is a possible fistula connecting the right coronary artery to an unknown cardiac chamber or possibly the ascending aorta. This is likely an incidental finding of no clinical significance. 3. The patient is known to have normal left ventricular systolic function with an estimated ejection fraction of 55-60% by echocardiogram performed earlier today. Certain portions of this document may have been dictated utilizing voice recognition technology. Inherent to this technology, typographical and grammati anup errors may exist. As much as I am diligent to identify and correct these mistakes, some errors may remain in the document. ROSALINDA PIÑA JR, MD Oct 25, 2021 09:53
[2021-10-25] MEDS ORDERED: NS IV 1000 ML 1,000 ML IV SCH (10:00)
[2021-10-25] MEDS: meTOproloL SUCCINATE 50 MG (TOPROL XL) TAB PO SCH (10:17)
[2021-10-25] MEDS: DOCUSATE SODIUM 100 MG (COLACE) CAP PO SCH (10:17)
[2021-10-25] MEDS: ASPIRIN E.C. 81 MG (ECOTRIN) TAB PO SCH (10:17)
[2021-10-25] MEDS: ENOXAPARIN 40 MG/0.4 ML (LOVENOX) SYR SC SCH (10:17)
[2021-10-25] MEDS: MUPIROCIN 2% OINT 22 GM (BACTROBAN) TUBE NSEACH SCH (10:18)
[2021-10-25] MEDS ORDERED: OMEP40CA6 PO (10:43)
[2021-10-25] MEDS ORDERED: LEVO50TA6 PO (10:43)
[2021-10-25] MEDS ORDERED: ALPR0.5T7 PO (10:43)
[2021-10-25] MEDS ORDERED: FLUT1DIS26 IH (10:43)
[2021-10-25] MEDS ORDERED: ATOR10TA66 PO (10:43)
[2021-10-25] MEDS ORDERED: PREG75CA75 PO (10:43)
[2021-10-25] MEDS ORDERED: ASPI-1238 PO (10:43)
[2021-10-25] MEDS ORDERED: RT-ALBUINH IH (10:43)
--- NOTE | 2021-10-25 11:41 | Progress Note - Hospitalist ---
KINA SANCHEZ A MED STUDENT 10/25/21 1141: Subjective HPI/CC On Admission Date Seen by Provider: Oct 25, 2021 Time Seen by Provider: 08:30 CC: Chest pain with VT episodes HPI: This is a 51yoWM clinic patient of Dr Arriaga who presented to the ER with episodes of chest pain with VT on w/u. He reports these "episodes" have been occurring on/off for "years." Dr Hudson evaluated him and will need cath tomorrow. He is non-compliant with CPAP. Subjective/Events-last exam Hiren is a 51 yo male admitted on 10/23 for chest pain and episode of Vtach in the ED. 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 Upon admission cardiology was consulted. Cardiac enzymes were within normal limits and CXR was negative. EKG showed sinus tach with 2 episodes of Vtach lasting less than 10 seconds. Cardiology started oral metoprolol in ED, but pt had another episode of nonsustained Vtach, so 1 dose of IV metoprolol was given and has not had Vtach since. Cardiology did an echo and EF was found to be 55-60%. Pt was taken to cardiac assistant laboratory director where no blockages were found. Cardiology ordered a cardiac MRI to be done. Pt has known hx of noncompliance with CPAP usage. He states he had a CPAP machine but has never used it and its been several years since last sleep study. Would recommend outpatient sleep study and new equipment for pt at this time. Review of Systems General: No Chills, No Fatigue HEENT: No Head Aches, No Visual Changes Pulmonary: No Dyspnea, No Cough Cardiovascular: No: Chest Pain, Palpitations Gastrointestinal: No: Nausea, Vomiting Genitourinary: No Dysuria, No Frequency Musculoskeletal: No: neck pain, shoulder pain Neurological: No: Weakness, Numbness Objective Exam Vital Signs Vital Signs Date Time Temp Pulse Resp B/P (MAP) Pulse Ox O2 Delivery O2 Flow Rate FiO2 10/25/21 11:00 71 19 116/75 (89) 91 Room Air 10/25/21 04:00 36.5 10/24/21 09:00 2.00 Capillary Refill : Less Than 3 Seconds General Appearance: No Apparent Distress, WD/WN HEENT: PERRL/EOMI, Pharynx Normal Neck: Full Range of Motion, Normal Inspection Respiratory: Chest Non Tender, Lungs Clear, Normal Breath Sounds Cardiovascular: Regular Rate, Rhythm, No Murmur Gastrointestinal: Normal Bowel Sounds, Non Tender, Soft Back: Normal Inspection, No CVA Tenderness Extremity: Normal Capillary Refill, Non Tender Neurologic/Psychiatric: Alert, Oriented x3 Skin: Normal Color, Warm/Dry Lymphatic: No Adenopathy Results/Procedures Lab Laboratory Tests 10/25/21 03:43 Patient resulted labs reviewed. Assessment/Plan Assessment and Plan Assess & Plan/Chief Complaint Chest pain Ventricular tachycardia RUPINDER noncompliant with CPAP Obesity HTN HLD Chest pain -Cardiology consulted -Cardiac catheterization revealed no blockage -Echo revealed EF of 55-60% -CXR negative -Cardiology recommended a cardiac MRI Ventricular tachycardia -2 episodes lasting less than 10 seconds -Telemetry RUPINDER noncompliant with CPAP -Outpatient sleep study and new equipment Obesity HTN HLD Diet: NPO post cath Disposition: Likely d/c tomorrow, will collaborate with Dr. Hudson to coordinate discharge. Clinical Quality Measures AMI/AHF: ASA po Prior to arrival: Yes (81mg) ALMA ROSA VYAS DO 10/26/21 0530: Supervisory-Addendum Brief Verification & Attestation Participated in pt care: history, MDM, physical Personally performed: exam, history, MDM, supervision of care Care discussed with: Medical Student Procedures: n/a Results interpretation: Verified all documentation Verification and Attestation of Medical Student E/M Service A medical student performed and documented this service in my presence. I reviewed and verified all information documented by the medical student and made modifications to such information, when appropriate. I personally performed the physical exam and medical decision making. Alma oRsa Vyas, Oct 26, 2021,05:30 KINA SANCHEZ MED STUDENT Oct 25, 2021 11:41 ALMA ROSA VYAS DO Oct 26, 2021 05:30
[2021-10-25] MEDS ORDERED: METO50TA7 PO (13:12)
--- NOTE | 2021-10-25 13:28 | Discharge Summary ---
Discharge Summary Hospital Course Was the Problem List Reviewed?: Yes Problems/Dx: (1) Chest pain Qualifiers: Qualified Codes: R07.9 - Chest pain, unspecified (2) Dizziness Status: Acute (3) Paroxysmal VT Status: Acute (4) Obstructive sleep apnea of adult Status: Chronic (5) Mixed hyperlipidemia Status: Chronic (6) Morbid obesity Status: Chronic Hospital Course Date of Admission: Oct 23, 2021 at 22:07 Admission Diagnosis : Family Physician/Provider: Date of Discharge: 10/25/21 Discharge Diagnosis: [ ] Hospital Course: Hiren is a 51 yo male admitted on 10/23 for chest pain and episode of Vtach in the ED. 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 Upon admission cardiology was consulted. Cardiac enzymes were within normal limits and CXR was negative. EKG showed sinus tach with 2 episodes of Vtach lasting less than 10 seconds. Cardiology started oral metoprolol in ED, but pt had another episode of nonsustained Vtach, so 1 dose of IV metoprolol was given and has not had Vtach since. Cardiology did an echo and EF was found to be 55-60%. Pt was taken to cardiac cardiac cath tech where no blockages were found. Cardiology ordered a cardiac MRI to be done. Pt has known hx of noncompliance with CPAP usage. He states he had a CPAP machine but has never used it and its been several years since last sleep study. Would recommend outpatient sleep study and new equipment for pt at this time. Labs and Pending Lab Test: Laboratory Tests 10/24/21 16:14: Glucometer 97 10/24/21 21:00: Glucometer 88 10/25/21 03:43: Sodium Level 138, Potassium Level 3.8, Chloride Level 103, Carbon Dioxide Level 22, Anion Gap 13, Blood Urea Nitrogen 13, Creatinine 0.95, Estimat Glomerular Filtration Rate 96, BUN/Creatinine Ratio 14, Glucose Level 88, Calcium Level 8.9, Corrected Calcium 8.7, Magnesium Level 2.3, Total Bilirubin 0.5, Aspartate Amino Transf (AST/SGOT) 25, Alanine Aminotransferase (ALT/SGPT) 37, Alkaline Phosphatase 64, Total Protein 6.9, Albumin 4.2 10/25/21 11:12: Glucometer 94 Microbiology 10/23/21 MRSA Screen - Final, Complete Home Meds Active Metoprolol Succinate 50 Mg Tab.er.24h 50 Mg PO DAILY Reported Omeprazole 40 Mg Capsule.dr 40 Mg PO DAILY Proair Hfa (Albuterol Sulfate) 1 Puff Puff 2 Puff IH Q4H PRN Advair 250-50 Diskus (Fluticasone/Salmeterol) 250 Mcg-50 Mcg/Dose Blst.w.dev 1 Puff IH DAILY Pregabalin 75 Mg Capsule 75 Mg PO DAILY Aspirin EC (Aspirin) 81 Mg Tablet.dr 81 Mg PO DAILY Levothyroxine Sodium 50 Mcg Tablet 50 Mcg PO DAILY Atorvastatin Calcium 10 Mg Tablet 10 Mg PO DAILY Alprazolam 0.5 Mg Tablet 0.5 Mg PO HS Assessment/Pt Instructions cardiology as scheduled Discharge Planning: <30 minutes discharge planning Discharge Physical Examination Vital Signs Vital Signs Date Time Temp Pulse Resp B/P (MAP) Pulse Ox O2 Delivery O2 Flow Rate FiO2 10/25/21 13:00 79 10 131/75 (93) 95 Room Air 10/25/21 04:00 36.5 10/24/21 09:00 2.00 General Appearance: No Apparent Distress, WD/WN, Chronically ill, Obese Allergies: Coded Allergies: No Known Drug Allergies (Unverified , 03/09/19) Discharge Summary Date of Admission Oct 23, 2021 at 22:07 Date of Discharge Discharge Date: Oct 25, 2021 Admission Diagnosis Assessment: Chest pain VT RUPINDER non-compliant with CPAP Obesity BMI 47 HTN HLP Plan: Cath Dr Hudson Discharge Diagnosis (1) Chest pain Qualifiers: Qualified Codes: R07.9 - Chest pain, unspecified (2) Dizziness Status: Acute (3) Paroxysmal VT Status: Acute (4) Obstructive sleep apnea of adult Status: Chronic (5) Mixed hyperlipidemia Status: Chronic (6) Morbid obesity Status: Chronic Clinical Quality Measures AMI/AHF: ASA po Prior to arrival: Yes (81mg) ЕЛЕНА VYAS DO Oct 25, 2021 13:28
[2021-10-25] MEDS ORDERED: RT--FLUTICASONE/SALMETEROL 113-14 (AIRDUO RespiCLICK) IH SCH (21:00)
[2021-10-25] MEDS ORDERED: ALPRAZolam 0.5 MG (XANAX) TAB PO SCH (21:00)
[2021-10-26] MEDS ORDERED: LEVOTHYROXINE 50 MCG (LEVOTHROID) TAB PO SCH (06:30)
[2021-10-26] MEDS ORDERED: FLUTICASONE/VILANTEROL 100 MCG 14'S (BREO) IH SCH (08:00)
[2021-10-26] MEDS ORDERED: NON-FORMULARY MEDICATION 1 EA EA (Fluticasone/Salmeterol (Advair 250-50 Diskus) 1 PUFF) IH SCH (09:00)
[2021-10-26] MEDS ORDERED: PANTOPRAZOLE 40 MG (PROTONIX) TAB PO SCH (09:00)
[2021-10-26] MEDS ORDERED: AtorvaSTATin TABLET 10 MG TABLET PO SCH (09:00)
[2021-10-26] MEDS ORDERED: PREGABALIN 75 MG (LYRICA) CAP PO SCH (09:00)
[2021-10-26] MEDS ORDERED: NON-FORMULARY MEDICATION 1 EA EA (Omeprazole 40 MG) PO SCH (09:00)
[2021-10-26] MEDS ORDERED: ASPIRIN E.C. 81 MG (ECOTRIN) TAB PO SCH (09:00)
== END 2021-10-25 14:36 | disposition home or self-care (01) ==
LOC: EDUNIT# 17:30 → ER FS 17:32 → UNDOADMOB 22:07 → ICU 22:07 → CATH 22:07 → ICU 22:07 → UNDODISOB 10-25 14:36 → CATH 10-25 14:36
PROVIDERS: ATTEND Internal Medicine
DX: I47.2 Ventricular tachycardia (principal); G47.33 Obstructive sleep apnea (adult) (pediatric); E78.2 Mixed hyperlipidemia; E66.01 Morbid (severe) obesity due to excess calories; Z68.42 Body mass index [BMI] 45.0-49.9, adult; I10 Essential (primary) hypertension; Z99.89 Dependence on other enabling machines and devices
CPT/HCPCS: 36415; 71045; 80053 ×3; 80061; 82947 ×2; 83036; 83690; 83735 ×3; 84443; 84484 ×2; 85025; 85027; 85379; 87081; 87636; 93005; 93041; 93306; 93458; 99285; C1894; G0378

== ENCOUNTER → 2021-10-25 | Outpatient (CLI) | payer BC ==
[~2021-10-25] MED LIST: ALPR0.254 PO; ALPR0.5T7 PO; APIX5TAB PO; ASPI-1238 PO; ATOR10TA66 PO; CITA10TA9 PO; DILT240C86 PO; DILT240C91 PO; FAMO10TA43 PO; FLUT1DIS26 IH; LEVO50CA4 PO; LEVO50TA6 PO; LEVO75CA5 PO; LEVO75TA6 PO; METO50TA7 PO; OMEP40CA6 PO; ONDA4TAB11 PO; PEPCID COMPLETE PO; PREG75CA PO; PREG75CA75 PO; RT-ALBUINH IH; STL80T PO; SUCR1TAB PO
== END ==
LOC: CARD 15:01
PROVIDERS: ATTEND Internal Medicine Cardiovascular Disease
DX: I47.2 Ventricular tachycardia (principal)

== ENCOUNTER 2021-11-03 15:46 | Observation (INO) | payer BC ==
[~2021-11-03] VITALS: Ht 175.2 cm; Wt 141.8 kg
[~2021-11-03 15:46] MED LIST changes: -APIX5TAB PO; -CITA10TA9 PO; -DILT240C86 PO; -DILT240C91 PO; -FAMO10TA43 PO; -LEVO75CA5 PO; -LEVO75TA6 PO; -ONDA4TAB11 PO; -PEPCID COMPLETE PO; -STL80T PO; -SUCR1TAB PO
[2021-11-03] MEDS ORDERED: NS IV 1000 ML 1,000 ML IV STA (15:56)
[2021-11-03] MEDS ORDERED: ONDANSETRON 4 MG/2 ML (SDV) Z0FRAN IVP ONE (16:00)
[2021-11-03] MEDS ORDERED: ASPIRIN 81 MG CHEW (CHILDREN'S ASA) PO ONE (16:00)
--- NOTE | 2021-11-03 16:02 | ED Cardiac General ---
History of Present Illness General Chief Complaint: Cardiac/General Problems Stated Complaint: IRREGULAR HEARTBEAT Source: patient Exam Limitations: no limitations History of Present Illness Date Seen by Provider: Nov 03, 2021 Time Seen by Provider: 15:49 Initial Comments 51-year-old male with past medical history of paroxysmal V. tach, hypertension, RUPINDER coming in due to an episode of palpitations around 4 hours ago that lasted roughly 10 seconds. He says it felt like similar episodes in the past when he was in V. tach. He took his metoprolol 50 mg about an hour ago as well as his Xanax because he feels anxious. He has some nausea right now but no other symptoms. Has been eating and drinking normally, no vomiting, diarrhea, chest pain, shortness of breath, abdominal pain, weakness, numbness, headache, or any other concerns. He takes the metoprolol twice a day. Allergies and Home Medications Allergies Coded Allergies: No Known Drug Allergies (Unverified , 03/09/19) Patient Home Medication List Home Medication List Reviewed: Yes Albuterol Sulfate (Proair Hfa) 1 Puff Puff, 2 PUFF IH Q4H PRN for SHORTNESS OF BREATH, (Reported) Entered as Reported by: LINH MURCIA on 10/25/21 104 Alprazolam (Alprazolam) 0.5 Mg Tablet, 0.5 MG PO HS, (Reported) Entered as Reported by: LINH MURCIA on 10/25/21 104 Aspirin (Aspirin EC) 81 Mg Tablet.dr, 81 MG PO DAILY, (Reported) Entered as Reported by: LINH MURCIA on 10/25/21 104 Atorvastatin Calcium (Atorvastatin Calcium) 10 Mg Tablet, 10 MG PO DAILY, (Reported) Entered as Reported by: LINH MURCIA on 10/25/21 104 Fluticasone/Salmeterol (Advair 250-50 Diskus) 250 Mcg-50 Mcg/Dose Blst.w.dev, 1 PUFF IH DAILY, (Reported) Entered as Reported by: LINH MURCIA on 10/25/21 104 Levothyroxine Sodium (Levothyroxine Sodium) 50 Mcg Tablet, 50 MCG PO DAILY, (Reported) Entered as Reported by: LINH MURCIA on 10/25/21 104 Metoprolol Succinate (Metoprolol Succinate) 50 Mg Tab.er.24h, 50 MG PO DAILY Prescribed by: ROSALINDA HUDSON JR, MD on 10/25/21 1312 Omeprazole (Omeprazole) 40 Mg Capsule.dr, 40 MG PO DAILY, (Reported) Entered as Reported by: LINH MURCIA on 10/25/21 1043 Pregabalin (Pregabalin) 75 Mg Capsule, 75 MG PO DAILY, (Reported) Entered as Reported by: LINH MURCIA on 10/25/21 1043 Review of Systems Review of Systems Constitutional: No fever EENTM: No Blurred Vision Respiratory: Denies Cough Cardiovascular: Denies Chest Pain; Palpitations Gastrointestinal: Denies Abdominal Pain Genitourinary: No Symptoms Reported Musculoskeletal: no symptoms reported Skin: no symptoms reported Psychiatric/Neurological: No Symptoms Reported Endocrine: No Symptoms Reported Hematologic/Lymphatic: No Symptoms Reported All Other Systems Reviewed Negative Unless Noted: Yes Past Vxbogyv-Abgntq-Rmpeed Hx Patient Social History Tobacco Use?: No Substance use?: No Alcohol Use?: Yes Alcohol Frequency: Rarely Immunizations Up To Date First/Initial COVID19 Vaccinat: Yes Second COVID19 Vaccination Steve: Yes Third COVID19 Vaccination Date: Yes Past Medical History Surgery/Hospitalization HX: Hypothyroidism; Anxiety; High Cholesterol; Obesity Surgeries: No Respiratory: No Sleep Apnea Currently Using CPAP: No Currently Using BIPAP: No Cardiac: No High Cholesterol, Hypertension Neurological: No Genitourinary: No Gastrointestinal: No Musculoskeletal: No Endocrine: No HEENT: No Cancer: No Psychosocial: No Integumentary: No Blood Disorders: No Physical Exam Vital Signs Vital Signs - First Documented 11/03/21 15:55 Temp 37.1 Pulse 112 Resp 19 B/P (MAP) 183/84 (117) Pulse Ox 97 O2 Delivery Room Air Capillary Refill : Height, Weight, BMI Height: '" Weight: lbs. oz. kg; 47.02 BMI Method: General Appearance: WD/WN, Anxious HEENT: PERRL/EOMI, Normal ENT Inspection, Pharynx Normal Neck: Full Range of Motion, Normal Inspection, Non Tender, Supple Respiratory: Chest Non Tender, Lungs Clear, Normal Breath Sounds, No Accessory Muscle Use, No Respiratory Distress Cardiovascular: Regular Rate, Rhythm, No Edema, Normal Peripheral Pulses Gastrointestinal: Normal Bowel Sounds, Non Tender, Soft; No Distended, No Guarding Extremity: Normal Capillary Refill, Normal Inspection, Normal Range of Motion, Non Tender, No Calf Tenderness, No Pedal Edema Neurologic/Psychiatric: Alert, No Motor/Sensory Deficits, Normal Mood/Affect Skin: Normal Color, Warm/Dry Lymphatic: No Adenopathy Progress/Results/Core Measures Results/Orders Lab Results Laboratory Tests Test 11/03/21 15:53 11/03/21 16:25 Range/Units White Blood Count 10.0 4.3-11.0 10^3/uL Red Blood Count 5.14 4.30-5.52 10^6/uL Hemoglobin 15.3 13.3-17.7 g/dL Hematocrit 44 40-54 % Mean Corpuscular Volume 86 80-99 fL Mean Corpuscular Hemoglobin 30 25-34 pg Mean Corpuscular Hemoglobin Concent 35 32-36 g/dL Red Cell Distribution Width 12.9 10.0-14.5 % Platelet Count 346 130-400 10^3/uL Mean Platelet Volume 9.2 9.0-12.2 fL Immature Granulocyte % (Auto) 0 % Neutrophils (%) (Auto) 63 42-75 % Lymphocytes (%) (Auto) 26 12-44 % Monocytes (%) (Auto) 9 0-12 % Eosinophils (%) (Auto) 2 0-10 % Basophils (%) (Auto) 1 0-10 % Neutrophils # (Auto) 6.3 1.8-7.8 10^3/uL Lymphocytes # (Auto) 2.6 1.0-4.0 10^3/uL Monocytes # (Auto) 0.9 0.0-1.0 10^3/uL Eosinophils # (Auto) 0.2 0.0-0.3 10^3/uL Basophils # (Auto) 0.1 0.0-0.1 10^3/uL Immature Granulocyte # (Auto) 0.0 0.0-0.1 10^3/uL Sodium Level 141 135-145 MMOL/L Potassium Level 3.9 3.6-5.0 MMOL/L Chloride Level 103 98-107 MMOL/L Carbon Dioxide Level 26 21-32 MMOL/L Anion Gap 12 5-14 MMOL/L Blood Urea Nitrogen 10 7-18 MG/DL Creatinine 1.67 H 0.60-1.30 MG/DL Estimat Glomerular Filtration Rate 49 BUN/Creatinine Ratio 6 Glucose Level 104 70-105 MG/DL Calcium Level 9.8 8.5-10.1 MG/DL Corrected Calcium 8.5-10.1 MG/DL Magnesium Level 2.1 1.6-2.4 MG/DL Total Bilirubin 0.3 0.1-1.0 MG/DL Aspartate Amino Transf (AST/SGOT) 31 5-34 U/L Alanine Aminotransferase (ALT/SGPT) 43 0-55 U/L Alkaline Phosphatase 86 40-136 U/L Troponin I < 0.30 <0.30 NG/ML Pro-B-Type Natriuretic Peptide 55.1 <125.0 PG/ML Total Protein 7.8 6.4-8.2 GM/DL Albumin 4.9 H 3.2-4.5 GM/DL Lipase 31 8-78 U/L Prothrombin Time 12.5 12.2-14.7 SEC INR Comment 0.9 0.8-1.4 Activated Partial Thromboplast Time 28 24-35 SEC My Orders Orders - RUBY CENTENO MD Cbc With Automated Diff (11/03/21 15:51) Magnesium (11/03/21 15:51) Chest 1 View Ap/Pa Only (11/03/21 15:51) Ekg Tracing (11/03/21 15:51) Comprehensive Metabolic Panel (11/03/21 15:51) Protime With Inr (11/03/21 15:51) Partial Thromboplastin Time (11/03/21 15:51) O2 (11/03/21 15:51) Monitor-Rhythm Ecg Trace Only (11/03/21 15:51) Ed Iv/Invasive Line Start (11/03/21 15:51) Lipase (11/03/21 15:51) Troponin I Fs (11/03/21 15:51) Probnp Fs (11/03/21 15:51) Ns Iv 1000 Ml (Sodium Chloride 0.9%) (11/03/21 15:56) Ondansetron Injection (Zofran Injectio (11/03/21 16:00) Aspirin Chewable Tablet (Baby Aspirin Ch (11/03/21 16:00) Famotidine Tablet (Pepcid Tablet) (11/03/21 16:30) Antacid Suspension (Mylanta Suspension (11/03/21 16:30) Lorazepam Tablet (Ativan Tablet) (11/03/21 16:36) Ed Admission (Communication) (11/03/21 17:08) Troponin I Fs (11/03/21 17:08) Medications Given in ED Current Medications Medications Dose Ordered Sig/Reagan Route Start Time Stop Time Status Last Admin Dose Admin Aspirin 324 mg ONCE ONCE PO 11/03/21 16:00 11/03/21 16:01 DC 11/03/21 16:07 324 MG Ondansetron HCl 4 mg ONCE ONCE IVP 11/03/21 16:00 11/03/21 16:01 DC 11/03/21 16:07 4 MG Vital Signs/I&O 11/03/21 15:55 Temp 37.1 Pulse 112 Resp 19 B/P (MAP) 183/84 (117) Pulse Ox 97 O2 Delivery Room Air Progress Progress Note : Progress Note 51-year-old male with above history coming in due to palpitations. ABCs were intact and vitals were stable on presentation. He was mildly tachycardic on presentation, but after an IV was placed and he was given fluids his heart rate went down into the 90s. He had no episodes of V. tach while on the monitor for about an hour and a half in the ER. I contacted Dr. Hudson, his cattle sorter, and he confirms that the patient has had episodes where it is nonsustained between 5-30 beats over the past couple days. Troponin is negative, chest x-ray clear, electrolytes within normal limits. I then contacted Dr. Ricardo, the patient will be admitted under observation status, they can adjust medications to try to limit episodes of his paroxysmal V. tach that is nonsustained. Initial ECG Impression Date: Nov 03, 2021 Initial ECG Impression Time: 16:00 Initial ECG Rate: 110 Initial ECG Rhythm: S.Tach Comment Narrow QRS, normal axis, no significant ST changes or T wave abnormalities Diagnostic Imaging Diagonstic Imaging: Xray Plain Films/CT/US/NM/MRI: chest Comments [facility] [place], [place] NAME: [facility] REC#: [id number] PT STATUS: REG ER : 1970 PHYSICIAN: RUBY CENTENO MD ADMIT DATE: 11/03/21/ER FS Draft Date of Exam:11/03/21 CHEST 1 VIEW AP/PA ONLY INDICATION: Chest pain, tachycardia, and nausea. COMPARISON: 10/23/2021. FINDINGS: Lungs are clear. No failure, effusion, or pneumothorax. IMPRESSION: Negative. Dictated on workstation # [id number] Dict: 11/03/21 1614 Trans: 11/03/21 1616 [id number] Interpreted by: ELIZABETH JACOB Electronically signed by: Departure Impression Primary Impression: Paroxysmal VT Disposition: 30 STILL A PATIENT Condition: Stable Admissions Decision to Admit Reason: Admit from ER (General) Decision to Admit/Date: Nov 03, 2021 Time/Decision to Admit Time: 17:00 Transfer Method of Transfer: EMS Departure-Patient Inst. Referrals: COLIN LUA MD (PCP/Family) Primary Care Physician RUBY CENTENO MD Nov 03, 2021 16:02
[2021-11-03 16:12] LABS: BASOPHILS # (AUTO) 0.1 10^3/uL (0.0-0.1); BASOPHILS % (AUTO) 1 % (0-10); EOSINOPHILS # (AUTO) 0.2 10^3/uL (0.0-0.3); EOSINOPHILS % (AUTO) 2 % (0-10); HEMATOCRIT 44 % (40-54); HEMOGLOBIN 15.3 g/dL (13.3-17.7); LYMPHOCYTES # (AUTO) 2.6 10^3/uL (1.0-4.0); LYMPHOCYTES % (AUTO) 26 % (12-44); MEAN CORPUSCULAR HEMOGLOBIN 30 pg (25-34); MEAN CORPUSCULAR HGB CONC 35 g/dL (32-36); MEAN CORPUSCULAR VOLUME 86 fL (80-99); MEAN PLATELET VOLUME 9.2 fL (9.0-12.2); MONOCYTES # (AUTO) 0.9 10^3/uL (0.0-1.0); MONOCYTES % (AUTO) 9 % (0-12); NEUTROPHILS # (AUTO) 6.3 10^3/uL (1.8-7.8); NEUTROPHILS % (AUTO) 63 % (42-75); PLATELET COUNT 346 10^3/uL (130-400)
--- NOTE | 2021-11-03 16:16 | Diagnostic Imaging Report ---
INDICATION: Chest pain, tachycardia, and nausea. COMPARISON: 10/23/2021. FINDINGS: Lungs are clear. No failure, effusion, or pneumothorax. IMPRESSION: Negative. Dictated by: Dictated on workstation # [id number]
[2021-11-03] MEDS ORDERED: ANTACID SUSP 30 ML UDC (MYLANTA) PO ONE (16:30)
[2021-11-03] MEDS ORDERED: ACETAMINOPHEN 500 MG TAB (TYLENOL) PO ONE (16:30)
[2021-11-03] MEDS ORDERED: FAMOTIDINE 20 MG (PEPCID) TABLET PO STA (16:30)
[2021-11-03] MEDS ORDERED: LORazepam 0.5 MG (ATIVAN) TABLET PO STA (16:36)
[2021-11-03 16:48] LABS: SODIUM 141 MMOL/L (135-145)
[2021-11-03 16:49] LABS: ALANINE AMINOTRANSFERASE 43 U/L (0-55); ALBUMIN 4.9 GM/DL (3.2-4.5); ALKALINE PHOSPHATASE 86 U/L (40-136); BILIRUBIN,TOTAL 0.3 MG/DL (0.1-1.0); BUN/CREATININE RATIO 6; CALCIUM 9.8 MG/DL (8.5-10.1); CARBON DIOXIDE 26 MMOL/L (21-32); CHLORIDE 103 MMOL/L (98-107); CREATININE SERUM 1.67 MG/DL (0.60-1.30); GFR ESTIMATED 49; GLUCOSE 104 MG/DL (70-105); MAGNESIUM 2.1 MG/DL (1.6-2.4); POTASSIUM 3.9 MMOL/L (3.6-5.0); TOTAL PROTEIN 7.8 GM/DL (6.4-8.2)
[2021-11-03 16:50] LABS: LIPASE 31 U/L (8-78)
[2021-11-03 16:54] LABS: INR 0.9 (0.8-1.4); PROTHROMBIN TIME PATIENT 12.5 SEC (12.2-14.7)
[2021-11-03] MEDS ORDERED: morphine INJ 10 MG/ML 1ML (SYR OR VIAL) IVP STA (17:40)
[2021-11-03 20:00] VITALS: BP 151/73
[2021-11-03] MEDS ORDERED: NS IV 1000 ML 1,000 ML ONE (20:24)
[2021-11-03] MEDS ORDERED: PROMETHAZINE INJ 25 MG/ML (PHENERGAN) AMP IVP PRN (20:30)
[2021-11-03] MEDS ORDERED: NS IV 1000 ML 1,000 ML IV ONE (20:30)
[2021-11-03] MEDS ORDERED: LEVO75CA5 PO ×2 (20:39)
[2021-11-03] MEDS ORDERED: SUCR1TAB PO (20:45)
[2021-11-03] MEDS: ALPRAZolam 0.5 MG (XANAX) TAB PO SCH (22:05)
[2021-11-03] MEDS: PREGABALIN 75 MG (LYRICA) CAP PO SCH (22:05)
[2021-11-03 23:35] VITALS: BP 120/70
[2021-11-03] MEDS: ANTACID SUSP 30 ML UDC (MYLANTA) PO PRN (23:35)
[2021-11-04 03:52] VITALS: BP 106/52
[2021-11-04 08:06] VITALS: BP 149/83
[2021-11-04 08:13] LABS: BASOPHILS # (AUTO) 0.1 10^3/uL (0.0-0.1); BASOPHILS % (AUTO) 1 % (0-10); EOSINOPHILS # (AUTO) 0.2 10^3/uL (0.0-0.3); EOSINOPHILS % (AUTO) 3 % (0-10); HEMATOCRIT 42 % (40-54); HEMOGLOBIN 14.1 g/dL (13.3-17.7); LYMPHOCYTES # (AUTO) 2.1 10^3/uL (1.0-4.0); LYMPHOCYTES % (AUTO) 28 % (12-44); MEAN CORPUSCULAR HEMOGLOBIN 30 pg (25-34); MEAN CORPUSCULAR HGB CONC 34 g/dL (32-36); MEAN CORPUSCULAR VOLUME 89 fL (80-99); MEAN PLATELET VOLUME 9.1 fL (9.0-12.2); MONOCYTES # (AUTO) 0.6 10^3/uL (0.0-1.0); MONOCYTES % (AUTO) 8 % (0-12); NEUTROPHILS # (AUTO) 4.4 10^3/uL (1.8-7.8); NEUTROPHILS % (AUTO) 60 % (42-75); PLATELET COUNT 281 10^3/uL (130-400); WHITE BLOOD COUNT 7.3 10^3/uL (4.3-11.0)
[2021-11-04 08:22] LABS: ALBUMIN 3.9 GM/DL (3.2-4.5); POTASSIUM 3.9 MMOL/L (3.6-5.0)
[2021-11-04 08:24] LABS: CALCIUM 8.6 MG/DL (8.5-10.1)
[2021-11-04 08:25] LABS: TOTAL PROTEIN 6.1 GM/DL (6.4-8.2)
[2021-11-04 08:26] LABS: BILIRUBIN,TOTAL 0.5 MG/DL (0.1-1.0)
[2021-11-04 08:29] LABS: CREATININE SERUM 0.9 MG/DL (0.60-1.30)
[2021-11-04] MEDS: ONDANSETRON 4 MG/2 ML (SDV) Z0FRAN IVP PRN ×3 (09:07→23:07)
[2021-11-04] MEDS: ANTACID SUSP 30 ML UDC (MYLANTA) PO PRN ×2 (09:07→22:56)
[2021-11-04 11:29] VITALS: BP 134/79
--- NOTE | 2021-11-04 11:39 | History & Physical ---
MANDY ANDERS 11/04/21 1139: History of Present Illness History of Present Illness Reason for visit/HPI I had the pleasure today of meeting Hiren Augustin, a 51 yo white M, who was transferred to [facility] from [facility] on 11/02/21 with a chief complaint of an irregular heart beat. Mr. Augustin has a pmh of paroxysmal ventricular tachycardia which he states has been present for the past four years. Lately, the episodes have become more frequent. He denies chest pain, but describes that his episodes of palpitations feel more like indigestion. Pt states he was admitted to [facility] two weeks ago. He does not see a Compliance Administrator regularly but has been followed by Dr. Hudson here in [place]. Pt states he had a cardiac cath and ECHO last Monday (10/25/21) which were clear. Today Mr. Augustin has been feeling nauseous and lightheaded, which has lessened with recent admin of Mylanta and Zofran. His has been taking diltiazem which was switched from metoprolol last night. Pt current wearing a Zio patch. Pt is actively scheduling an appt with Cardiology to discuss ablation. Mr. Augustin is and works in for the [employer]. He reports frequent swelling in both of his legs at the end of most days. ROS: POS: Nausea, lightheaded, dizziness; NEG: vomiting, fever chills Med: diltiazem, levothyroxine, aspirin, atorvastatin, alprazolam, omeprazole, pregabalin All: NKDA PMH: paroxysmal v. tach, hypothyroidism Surg: knee and back operations Fam: M: hypotyroid, stroke () F: cerebral hemorrhage () B: A.fib Soc: Alc: rare occ / Denies tobacco use / Denies illicit drug use Date of Admission Nov 03, 2021 at 19:00 Date Seen by a Provider: Nov 04, 2021 Time Seen by a Provider: 09:21 I consulted on this patient on 11/04/21 11:34 Attending Physician Zackary Arriaga MD Admitting Physician Admitting Physician: Sarah Sibley MD Attending Physician: Sarah Sibley MD Consult Allergies and Home Medications Allergies Coded Allergies: No Known Drug Allergies (Unverified , 03/09/19) Patient Home Medication List Home Medication List Reviewed: Yes Albuterol Sulfate (Proair Hfa) 1 Puff Puff, 2 PUFF IH Q4H PRN for SHORTNESS OF BREATH, (Reported) Entered as Reported by: LINH MURCIA on 10/25/211042 Last Action: Reviewed Alprazolam (Alprazolam) 0.5 Mg Tablet, 0.5 MG PO HS, (Reported) Entered as Reported by: LINH MURCIA on 10/25/211042 Last Action: Continued Aspirin (Aspirin EC) 81 Mg Tablet.dr, 81 MG PO DAILY, (Reported) Entered as Reported by: LINH MURCIA on 10/25/211042 Last Action: Continued Atorvastatin Calcium (Atorvastatin Calcium) 10 Mg Tablet, 10 MG PO DAILY, (Reported) Entered as Reported by: LINH MURCIA on 10/25/211042 Last Action: Continued Fluticasone/Salmeterol (Advair 250-50 Diskus) 250 Mcg-50 Mcg/Dose Blst.w.dev, 1 PUFF IH BID, (Reported) Entered as Reported by: LINH MURCIA on 10/25/211042 Last Action: Converted Levothyroxine Sodium (Levothyroxine) 75 Mcg Capsule, 75 MCG PO DAILY, (Reported) Entered as Reported by: GRAZYNA CUMMINGS on 11/03/212038 Last Action: Converted Metoprolol Succinate (Metoprolol Succinate) 50 Mg Tab.er.24h, 50 MG PO DAILY Prescribed by: ROSALINDA HUDSON JR, MD on 10/25/211311 Last Action: Held Omeprazole (Omeprazole) 40 Mg Capsule.dr, 40 MG PO DAILY, (Reported) Entered as Reported by: LINH MURCIA on 10/25/211042 Last Action: Held Pregabalin (Pregabalin) 75 Mg Capsule, 75 MG PO HS, (Reported) Entered as Reported by: LINH MURCIA on 10/25/211042 Last Action: Continued Sucralfate (Sucralfate) 1 Gram Tablet, 1 GM PO QID, (Reported) Entered as Reported by: GRAZYNA CUMMINGS on 11/03/212044 Last Action: Reviewed Discontinued Medications Levothyroxine Sodium (Levothyroxine Sodium) 50 Mcg Tablet, 50 MCG PO DAILY, (Reported) Discontinued Reason: No Longer Taking Entered as Reported by: LINH MURCIA on 10/25/21 1043 Last Action: Discontinued Past Qhwwtrs-Isymwd-Jofwaf Hx Patient Social History Marrital Status: Employed/Student: employed Tobacco Use?: No Smoking Status: Never a Smoker Use of E-Cig and/or Vaping dev: No Substance use?: No Alcohol Use?: Yes Alcohol Frequency: Rarely Pt feels they are or have been: No Immunizations Up To Date First/Initial COVID19 Vaccinat: Yes Second COVID19 Vaccination Steve: Yes Current Status Communicates: Verbally Primary Language: Lao Preferred Spoken Language: Lao Is interpretation needed?: No Sensory deficits: Vision impairment Implanted or Applied Medical D: None Past Medical History Sleep Apnea Currently Using CPAP: No Currently Using BIPAP: No High Cholesterol, Hypertension Blood Disorders: No Review of Systems Constitutional: dizziness EENTM: no symptoms reported Respiratory: no symptoms reported Cardiovascular: palpitations Gastrointestinal: no symptoms reported Genitourinary: no symptoms reported Musculoskeletal: no symptoms reported Skin: no symptoms reported Psychiatric/Neurological: No Symptoms Reported Physical Exam Vital Signs Vital Signs - First Documented 11/03/21 11/04/21 15:55 03:52 Temp 37.1 Pulse 112 Resp 19 B/P (MAP) 183/84 (117) Pulse Ox 97 O2 Delivery Room Air O2 Flow Rate 2.00 Capillary Refill : Less Than 3 Seconds Height, Weight, BMI Height: '" Weight: lbs. oz. kg; 46.19 BMI Method: General Appearance: No Apparent Distress, Anxious Respiratory: Chest Non Tender, Lungs Clear, Normal Breath Sounds, No Accessory Muscle Use, No Respiratory Distress Cardiovascular: Regular Rate, Rhythm, No JVD, No Murmur, Normal Peripheral Pulses Gastrointestinal: Normal Bowel Sounds, No Organomegaly, Non Tender, Soft Skin: Normal Color, Warm/Dry Assessment/Plan Assessment and Plan Assessment: Paroxysmal ventricular tachycardia Hypertension Anxiety Plan: Monitor pt cardiac telemetry. Would like to see less frequent and shorter runs of v. tach. Monitor pt tolerance of diltiazem. Consider for discharge if pt is feeling well tomorrow (11/05/21) Admission Diagnosis Admission Status: Inpatient Order (span 2 midnights) Reason for Inpatient Admission: irregular heart beat (PVT), hypertension SARAH SIBLEY MD 11/04/21 043: Allergies and Home Medications Allergies Coded Allergies: No Known Drug Allergies (Unverified , 03/09/19) Patient Home Medication List Home Medication List Reviewed: Yes Albuterol Sulfate (Proair Hfa) 1 Puff Puff, 2 PUFF IH Q4H PRN for SHORTNESS OF BREATH, (Reported) Entered as Reported by: LINH MURCIA on 10/25/211042 Last Action: Reviewed Alprazolam (Alprazolam) 0.5 Mg Tablet, 0.5 MG PO HS, (Reported) Entered as Reported by: LINH MURCIA on 10/25/211042 Last Action: Continued Aspirin (Aspirin EC) 81 Mg Tablet.dr, 81 MG PO DAILY, (Reported) Entered as Reported by: LINH MURCIA on 10/25/211042 Last Action: Continued Atorvastatin Calcium (Atorvastatin Calcium) 10 Mg Tablet, 10 MG PO DAILY, (Reported) Entered as Reported by: LINH MURCIA on 10/25/211042 Last Action: Continued Fluticasone/Salmeterol (Advair 250-50 Diskus) 250 Mcg-50 Mcg/Dose Blst.w.dev, 1 PUFF IH BID, (Reported) Entered as Reported by: LINH MURCIA on 10/25/211042 Last Action: Converted Levothyroxine Sodium (Levothyroxine) 75 Mcg Capsule, 75 MCG PO DAILY, (Reported) Entered as Reported by: GRAZYNA CUMMINGS on 11/03/212038 Last Action: Converted Metoprolol Succinate (Metoprolol Succinate) 50 Mg Tab.er.24h, 50 MG PO DAILY Prescribed by: ROSALINDA HUDSON JR, MD on 10/25/21 1312 Last Action: Held Omeprazole (Omeprazole) 40 Mg Capsule.dr, 40 MG PO DAILY, (Reported) Entered as Reported by: LINH MURCIA on 10/25/211042 Last Action: Held Pregabalin (Pregabalin) 75 Mg Capsule, 75 MG PO HS, (Reported) Entered as Reported by: LINH MURCIA on 10/25/211042 Last Action: Continued Sucralfate (Sucralfate) 1 Gram Tablet, 1 GM PO QID, (Reported) Entered as Reported by: GRAZYNA CUMMINGS on 11/03/212044 Last Action: Reviewed Discontinued Medications Levothyroxine Sodium (Levothyroxine Sodium) 50 Mcg Tablet, 50 MCG PO DAILY, (Reported) Discontinued Reason: No Longer Taking Entered as Reported by: LINH MURCIA on 10/25/211042 Last Action: Discontinued Past Jloauwv-Bozypk-Xsfulq Hx Patient Social History Living Status: Lives at home with independently Review of Systems Constitutional: dizziness, malaise EENTM: no symptoms reported Respiratory: no symptoms reported Cardiovascular: chest pain, palpitations Gastrointestinal: no symptoms reported Genitourinary: no symptoms reported Musculoskeletal: no symptoms reported Skin: no symptoms reported Psychiatric/Neurological: No Symptoms Reported Physical Exam General Appearance: No Apparent Distress, Anxious Neck: Non Tender, Supple Respiratory: Chest Non Tender, Lungs Clear, Normal Breath Sounds, No Accessory Muscle Use, No Respiratory Distress Cardiovascular: Regular Rate, Rhythm, No Murmur, Normal Peripheral Pulses Gastrointestinal: Normal Bowel Sounds, No Organomegaly, Non Tender, Soft Extremity: Normal Capillary Refill, Normal Inspection, Normal Range of Motion, Non Tender, No Calf Tenderness, No Pedal Edema Neurologic/Psychiatric: Alert, Oriented x3, No Motor/Sensory Deficits, Normal Mood/Affect, product development assistant II-XII Norm as Tested Skin: Normal Color, Warm/Dry Lymphatic: No Adenopathy Assessment/Plan Assessment and Plan Problems: (1) Non-sustained ventricular tachycardia Status: Acute Assessment & Plan: - Cardiology consult, appreciate recommendations, Patient has monitor on, Dr Hudson working on referral to [facility] (2) Chest pain Status: Acute Qualifiers: Qualified Codes: R07.9 - Chest pain, unspecified Assessment & Plan: - Comes and goes with arrythemia, normal cath and echo last week (3) Anxiety Status: Acute Assessment & Plan: - Started hydroxyzine (4) Morbid obesity Status: Chronic Assessment & Plan: He needs to work on weight loss. He has been counseled in this regard. Admission Diagnosis Admission Status: Inpatient Order (span 2 midnights) Reason for Inpatient Admission: Needs monitored with cardiology consult for med adjustment Supervisory-Addendum Brief Verification & Attestation Participated in pt care: history, physical Personally performed: exam, history Care discussed with: Medical Student Procedures: n/a Verification and Attestation of Medical Student E/M Service A medical student performed and documented this service in my presence. I reviewed and verified all information documented by the medical student and made modifications to such information, when appropriate. I personally performed the physical exam and medical decision making. Sarah Sibley, Nov 04, 2021,17:56 MANDY ANDERS Nov 04, 2021 11:39 SARAH SIBLEY MD Nov 04, 2021 17:56
[2021-11-04 15:16] VITALS: BP 129/67
[2021-11-04] MEDS ORDERED: CALCIUM CARBONATE 500 MG (TUMS) TAB.CHEW PO PRN ×2 (17:00)
[2021-11-04] MEDS: ACETAMINOPHEN 500 MG TAB (TYLENOL) PO PRN (17:04)
[2021-11-04] MEDS ORDERED: PANTOPRAZOLE 40 MG (PROTONIX) TAB PO ONE (17:30)
--- NOTE | 2021-11-04 17:35 | Consultation-Cardiology ---
HPI-Cardiology Cardiology Consultation: Date of Consultation 11/04/21 Date of Admission 11/03/21 Attending Physician Zackary Arriaga MD Admitting Physician Admitting Physician: Sil Ricardo MD Attending Physician: Sil Ricardo MD Consulting Physician ROSALINDA PIÑA JR, MD HPI: Time Seen by a Provider: 08:30 Chief Complaint: REASON FOR CONSULTATION: Ventricular tachycardia. I had the pleasure of seeing Hiren on the medical/surgical unit at [facility] in [place], [place] today. He is known to me from a previous hospitalization approximately 2 weeks ago. During that previous hospitalization, he was found to have nonsustained ventricular tachycardia. He underwent an echocardiogram that showed a normal ejection fraction and a cardiac catheterization that showed angiographically normal-appearing coronary arteries. He was started on beta-chandler and the ventricular tachycardia subsided before he was discharged. He was discharged with a [employer]O AT monitor which has lifetime recording. Within a few days after being discharged, I started receiving reports from the company that he was continuing to have intermittent episodes of nonsustained ventricular tachycardia. I doubled his dose of beta-chandler. However, he has continued to have palpitations. At times this will make him feel nauseous and lightheaded. He denies any syncope. Sometimes he will get a burning feeling in the center of his chest and some shortness of breath with these palpitations. Yesterday the symptoms were more pronounced and he had called into my office. I then asked him to go to the emergency room in [place] for further evaluation. He was transferred to our hospital late last evening. I started him on diltiazem CD last evening and he received a second dose this morning. He did have some episodes of nonsustained ventricular tachycardia overnight but none since approximately 830 this morning. He is feeling better overall but still nervous about his condition. He denies chest pain, paroxysmal nocturnal dyspnea, orthopnea, syncope, or ankle edema. Certain portions of this document may have been dictated utilizing voice recognition technology. Inherent to this technology, typographical and grammatical errors may exist. As much as I am diligent to identify and correct these mistakes, some errors may remain in the document. Review of Systems-Cardiology Review of Systems Other comments Review of 10 organ systems is as per the history of present illness, otherwise negative. All Other Systems Reviewed Negative Unless Noted: Yes BSW-Ozpwda-Gzpkaw Hx Patient Social History Marrital Status: Employed/Student: employed Smoking Status: Never a Smoker 2nd Hand Smoke Exposure: No Have you traveled recently?: No Alcohol Use?: Yes Pt feels they are or have been: No Past Medical History PMH As described under Assessment. Family Medical History Family Medical History: His brother has atrial fibrillation but he does not know of any family history of premature coronary artery disease in first-degree relatives. Allergies and Home Medications Allergies Coded Allergies: No Known Drug Allergies (Unverified , 03/09/19) Patient Home Medication List Home Medication List Reviewed: Yes Albuterol Sulfate (Proair Hfa) 1 Puff Puff, 2 PUFF IH Q4H PRN for SHORTNESS OF BREATH, (Reported) Entered as Reported by: LINH MURCIA on 10/25/211042 Last Action: Reviewed Alprazolam (Alprazolam) 0.5 Mg Tablet, 0.5 MG PO HS, (Reported) Entered as Reported by: LINH MURCIA on 10/25/211042 Last Action: Continued Aspirin (Aspirin EC) 81 Mg Tablet., 81 MG PO DAILY, (Reported) Entered as Reported by: LINH MURCIA on 10/25/211042 Last Action: Continued Atorvastatin Calcium (Atorvastatin Calcium) 10 Mg Tablet, 10 MG PO DAILY, (Reported) Entered as Reported by: LINH MURCIA on 10/25/211042 Last Action: Continued Fluticasone/Salmeterol (Advair 250-50 Diskus) 250 Mcg-50 Mcg/Dose Blst.w.dev, 1 PUFF IH BID, (Reported) Entered as Reported by: LINH MURCIA on 10/25/211042 Last Action: Converted Levothyroxine Sodium (Levothyroxine) 75 Mcg Capsule, 75 MCG PO DAILY, (Reported) Entered as Reported by: GRAZYNA CUMMINGS on 11/03/212038 Last Action: Converted Metoprolol Succinate (Metoprolol Succinate) 50 Mg Tab.er.24h, 50 MG PO DAILY Prescribed by: ROSALINDA PIÑA JR, MD on 10/25/21 1312 Last Action: Held Omeprazole (Omeprazole) 40 Mg Capsule., 40 MG PO DAILY, (Reported) Entered as Reported by: LNIH MURCIA on 10/25/211042 Last Action: Held Pregabalin (Pregabalin) 75 Mg Capsule, 75 MG PO HS, (Reported) Entered as Reported by: LINH MURCIA on 10/25/211042 Last Action: Continued Sucralfate (Sucralfate) 1 Gram Tablet, 1 GM PO QID, (Reported) Entered as Reported by: GRAZYNA CUMMINGS on 11/03/212044 Last Action: Reviewed Discontinued Medications Levothyroxine Sodium (Levothyroxine Sodium) 50 Mcg Tablet, 50 MCG PO DAILY, (Reported) Discontinued Reason: No Longer Taking Entered as Reported by: LINH MURCIA on 10/25/211042 Last Action: Discontinued Exam Vital Signs Vital Signs Date Time Temp Pulse Resp B/P (MAP) Pulse Ox O2 Delivery O2 Flow Rate FiO2 11/04/21 15:16 35.8 71 20 129/67 (87) 93 Room Air 11/04/21 07:57 0.00 Physical Exam General: Alert. No acute distress. Well nourished and appears stated age. Eye: Extraocular movements are intact. Conjunctivae are clear. There are no xanthelasma. HENT: Normocephalic. Atraumatic. Carotid pulsations 2/2 without bruits. Neck: Jugular venous pressure does not appear elevated. No thyromegaly appreciated. Respiratory: Lungs are clear to auscultation. Respirations are non-labored. Breath sounds are equal. Symmetrical chest wall expansion. Cardiovascular: Normal rate. Regular rhythm. No murmur. No gallop. Point of maximal impulse is not appear displaced. Good pulses equal in all extremities. No edema. Gastrointestinal: Soft. Normal bowel sounds. Skin: Skin turgor is normal. There is no pallor. Musculoskeletal: No kyphosis or scoliosis appreciated. Neurologic: Alert and oriented to person, place, time. Cranial nerves 3-12 appear grossly intact. The patient has good motor tone strength in the upper and lower extremities bilaterally. Psychiatric: Cooperative. Appropriate mood & affect. Labs Laboratory Tests Test 11/03/21 18:05 11/04/21 07:55 Range/Units Troponin I < 0.30 <0.30 NG/ML White Blood Count 7.3 4.3-11.0 10^3/uL Red Blood Count 4.72 4.30-5.52 10^6/uL Hemoglobin 14.1 13.3-17.7 g/dL Hematocrit 42 40-54 % Mean Corpuscular Volume 89 80-99 fL Mean Corpuscular Hemoglobin 30 25-34 pg Mean Corpuscular Hemoglobin Concent 34 32-36 g/dL Red Cell Distribution Width 12.9 10.0-14.5 % Platelet Count 281 130-400 10^3/uL Mean Platelet Volume 9.1 9.0-12.2 fL Immature Granulocyte % (Auto) 0 % Neutrophils (%) (Auto) 60 42-75 % Lymphocytes (%) (Auto) 28 12-44 % Monocytes (%) (Auto) 8 0-12 % Eosinophils (%) (Auto) 3 0-10 % Basophils (%) (Auto) 1 0-10 % Neutrophils # (Auto) 4.4 1.8-7.8 10^3/uL Lymphocytes # (Auto) 2.1 1.0-4.0 10^3/uL Monocytes # (Auto) 0.6 0.0-1.0 10^3/uL Eosinophils # (Auto) 0.2 0.0-0.3 10^3/uL Basophils # (Auto) 0.1 0.0-0.1 10^3/uL Immature Granulocyte # (Auto) 0.0 0.0-0.1 10^3/uL Sodium Level 139 135-145 MMOL/L Potassium Level 3.9 3.6-5.0 MMOL/L Chloride Level 107 98-107 MMOL/L Carbon Dioxide Level 24 21-32 MMOL/L Anion Gap 8 5-14 MMOL/L Blood Urea Nitrogen 10 7-18 MG/DL Creatinine 0.90 0.60-1.30 MG/DL Estimat Glomerular Filtration Rate 103 BUN/Creatinine Ratio 11 Glucose Level 94 70-105 MG/DL Calcium Level 8.6 8.5-10.1 MG/DL Corrected Calcium 8.7 8.5-10.1 MG/DL Total Bilirubin 0.5 0.1-1.0 MG/DL Aspartate Amino Transf (AST/SGOT) 22 5-34 U/L Alanine Aminotransferase (ALT/SGPT) 39 0-55 U/L Alkaline Phosphatase 64 40-136 U/L Total Protein 6.1 L 6.4-8.2 GM/DL Albumin 3.9 3.2-4.5 GM/DL ECG Impression ECG Comment Electrocardiogram from the emergency room last evening showed sinus tachycardia 110 bpm, otherwise unremarkable tracing. Diagnosis/Problems Diagnosis/Problems (1) Ventricular tachycardia Status: Acute Assessment & Plan: He had recurrent nonsustained ventricular tachycardia on his remote monitoring. I have changed his metoprolol succinate over to long-acting diltiazem under the direction of an fans clerk. If he fails therapy with diltiazem, I will consider either starting him on mexiletine or sotalol. He is scheduled to have a cardiac MRI at [facility] this coming Monday. I helped facilitate getting him an appointment with an fans clerk at [facility] next Monday. I re commend monitoring him on telemetry 1 more evening. If he does not have recurrent ventricular tachycardia on the diltiazem, he can be discharged to home tomorrow. We will continue with the [employer] AT monitoring. (2) Chest pain Assessment & Plan: His chest discomfort sounds noncardiac and he had 2 negative troponin levels and no ischemic changes on his electrocardiogram. Some of this could be due to esophageal reflux disease. I will start him on a proton pump inhibitor. (3) Mixed hyperlipidemia Status: Chronic (4) Anxiety Assessment & Plan: I have taken the liberty of starting him on citalopram. I suspect the anxiety is most likely situational and he should not need prolonged therapy with with this medication. (5) Morbid obesity Status: Chronic Assessment & Plan: He needs to work on weight loss. He has been counseled in this regard. ROSALINDA PIÑA JR, MD Nov 04, 2021 17:35
[2021-11-04] MEDS ORDERED: hydrOXYzine (VISTARIL/ATARAX) 25 MG capsule/tablet PO PRN (17:45)
[2021-11-04 19:20] VITALS: BP 131/82
[2021-11-04] MEDS: ALPRAZolam 0.5 MG (XANAX) TAB PO SCH (20:10)
[2021-11-04] MEDS: PREGABALIN 75 MG (LYRICA) CAP PO SCH (20:10)
[2021-11-04] MEDS: RT--FLUTICASONE/SALMETEROL 113-14 (AIRDUO RespiCLICK) IH SCH (21:58)
[2021-11-04 23:10] VITALS: BP 140/82
[2021-11-05 03:59] VITALS: BP 113/70
[2021-11-05] MEDS ORDERED: LEVOTHYROXINE 75 MCG (LEVOTHROID) TABLET PO SCH (06:30)
[2021-11-05 07:17] LABS: BASOPHILS # (AUTO) 0.1 10^3/uL (0.0-0.1); BASOPHILS % (AUTO) 1 % (0-10); EOSINOPHILS # (AUTO) 0.3 10^3/uL (0.0-0.3); EOSINOPHILS % (AUTO) 4 % (0-10); HEMATOCRIT 42 % (40-54); LYMPHOCYTES # (AUTO) 2.1 10^3/uL (1.0-4.0); LYMPHOCYTES % (AUTO) 30 % (12-44); MEAN CORPUSCULAR HEMOGLOBIN 30 pg (25-34); MEAN CORPUSCULAR HGB CONC 34 g/dL (32-36); MEAN CORPUSCULAR VOLUME 90 fL (80-99); MEAN PLATELET VOLUME 9.2 fL (9.0-12.2); MONOCYTES # (AUTO) 0.5 10^3/uL (0.0-1.0); MONOCYTES % (AUTO) 7 % (0-12); NEUTROPHILS # (AUTO) 4.1 10^3/uL (1.8-7.8); NEUTROPHILS % (AUTO) 58 % (42-75); PLATELET COUNT 275 10^3/uL (130-400)
[2021-11-05 07:40] LABS: ALBUMIN 3.9 GM/DL (3.2-4.5)
[2021-11-05 07:41] LABS: CALCIUM 8.4 MG/DL (8.5-10.1)
[2021-11-05 07:43] LABS: TOTAL PROTEIN 6.5 GM/DL (6.4-8.2)
[2021-11-05 07:45] LABS: BILIRUBIN,TOTAL 0.5 MG/DL (0.1-1.0)
[2021-11-05 07:46] LABS: CREATININE SERUM 0.9 MG/DL (0.60-1.30)
[2021-11-05] MEDS: RT--FLUTICASONE/SALMETEROL 113-14 (AIRDUO RespiCLICK) IH SCH (08:08)
[2021-11-05] MEDS: ONDANSETRON 4 MG/2 ML (SDV) Z0FRAN IVP PRN ×2 (08:18→16:37)
[2021-11-05] MEDS: ANTACID SUSP 30 ML UDC (MYLANTA) PO PRN ×2 (08:18→16:37)
[2021-11-05] MEDS: ACETAMINOPHEN 500 MG TAB (TYLENOL) PO PRN (08:18)
[2021-11-05 08:32] VITALS: BP 142/71
[2021-11-05] MEDS ORDERED: PANTOPRAZOLE 40 MG (PROTONIX) TAB PO SCH (09:00)
[2021-11-05] MEDS ORDERED: ASPIRIN E.C. 81 MG (ECOTRIN) TAB PO SCH (09:00)
[2021-11-05] MEDS ORDERED: AtorvaSTATin TABLET 10 MG TABLET PO SCH (09:00)
[2021-11-05] MEDS ORDERED: CITA10TA9 PO ×2 (09:34)
[2021-11-05] MEDS ORDERED: DILT240C91 PO ×2 (09:34)
--- NOTE | 2021-11-05 09:36 | Cardiology Progress Note ---
Progress Note-Cardiology Events since last exam Date Seen by Provider: Nov 05, 2021 Time Seen by Provider: 09:35 Events since last exam I am following him due to ventricular tachycardia. He has not had any further lightheaded or dizzy spells which are the symptoms he gets with the ventricular tachycardia. This morning he has some nausea but denies any vomiting or abdominal pain. He took his morning medication and the nausea seems to be improving. He denies chest pain, dyspnea, palpitations, syncope, or ankle edema. Certain portions of this document may have been dictated utilizing voice recognition technology. Inherent to this technology, typographical and grammatical errors may exist. As much as I am diligent to identify and correct these mistakes, some errors may remain in the document. Vitals Last set of Vitals Signs Vital Signs 11/04/21 11/05/21 07:57 15:26 Temp 36.3 Pulse 63 Resp 19 B/P (MAP) 104/51 (68) Pulse Ox 96 O2 Delivery Room Air O2 Flow Rate 0.00 Labs Labs Laboratory Tests 11/05/21 06:33 Exam Vital Signs Vital Signs Date Time Temp Pulse Resp B/P (MAP) Pulse Ox O2 Delivery O2 Flow Rate FiO2 11/05/21 15:26 36.3 63 19 104/51 (68) 96 Room Air 11/04/21 07:57 0.00 Physical Exam General: Alert. No acute distress. He is morbidly obese. Eye: No xanthelasma. HENT: Normocephalic. Neck: Jugular venous pressure does not appear elevated. Respiratory: Lungs are clear to auscultation. Respirations are non-labored. Breath sounds are equal. Symmetrical chest wall expansion. Cardiovascular: Normal rate. Regular rhythm. No murmur. No gallop. No edema. Gastrointestinal: Soft. Normal bowel sounds. Skin: Warm. Dry. Neurologic: Alert and oriented to person, place, time. Cranial nerves 3-11 grossly intact. Psychiatric: Cooperative. Appropriate mood & affect. Labs Laboratory Tests Test 11/05/21 06:33 Range/Units White Blood Count 7.0 4.3-11.0 10^3/uL Red Blood Count 4.64 4.30-5.52 10^6/uL Hemoglobin 14.0 13.3-17.7 g/dL Hematocrit 42 40-54 % Mean Corpuscular Volume 90 80-99 fL Mean Corpuscular Hemoglobin 30 25-34 pg Mean Corpuscular Hemoglobin Concent 34 32-36 g/dL Red Cell Distribution Width 13.2 10.0-14.5 % Platelet Count 275 130-400 10^3/uL Mean Platelet Volume 9.2 9.0-12.2 fL Immature Granulocyte % (Auto) 0 % Neutrophils (%) (Auto) 58 42-75 % Lymphocytes (%) (Auto) 30 12-44 % Monocytes (%) (Auto) 7 0-12 % Eosinophils (%) (Auto) 4 0-10 % Basophils (%) (Auto) 1 0-10 % Neutrophils # (Auto) 4.1 1.8-7.8 10^3/uL Lymphocytes # (Auto) 2.1 1.0-4.0 10^3/uL Monocytes # (Auto) 0.5 0.0-1.0 10^3/uL Eosinophils # (Auto) 0.3 0.0-0.3 10^3/uL Basophils # (Auto) 0.1 0.0-0.1 10^3/uL Immature Granulocyte # (Auto) 0.0 0.0-0.1 10^3/uL Sodium Level 136 135-145 MMOL/L Potassium Level 4.0 3.6-5.0 MMOL/L Chloride Level 106 98-107 MMOL/L Carbon Dioxide Level 22 21-32 MMOL/L Anion Gap 8 5-14 MMOL/L Blood Urea Nitrogen 9 7-18 MG/DL Creatinine 0.90 0.60-1.30 MG/DL Estimat Glomerular Filtration Rate 103 BUN/Creatinine Ratio 10 Glucose Level 89 70-105 MG/DL Calcium Level 8.4 L 8.5-10.1 MG/DL Corrected Calcium 8.5 8.5-10.1 MG/DL Total Bilirubin 0.5 0.1-1.0 MG/DL Aspartate Amino Transf (AST/SGOT) 23 5-34 U/L Alanine Aminotransferase (ALT/SGPT) 40 0-55 U/L Alkaline Phosphatase 59 40-136 U/L Total Protein 6.5 6.4-8.2 GM/DL Albumin 3.9 3.2-4.5 GM/DL Diagnosis/Problems Diagnosis/Problems (1) Ventricular tachycardia Status: Acute Assessment & Plan: He had recurrent nonsustained ventricular tachycardia on his remote monitoring. I have changed his metoprolol succinate over to long-acting diltiazem under the direction of an distribution a class lineman. He has not had any recurrent ventricular tachycardia in over 24 hours. From a cardiac standpoint, he can be discharged home. If he fails therapy with diltiazem, I will consider either starting him on mexiletine or sotalol. He is scheduled to have a cardiac MRI at [facility] this coming Monday. He should continue with the ZIO AT monitoring until the test is completed on Monday. He is scheduled to see Dr. Lockhart an distribution a class lineman at [facility] next Monday. I am on-call all weekend and told him if he has any issues over the weekend, he should call my answering service. (2) Chest pain Status: Acute Assessment & Plan: His chest discomfort sounds noncardiac and he had 2 negative troponin levels and no ischemic changes on his electrocardiogram. Some of this could be due to esophageal reflux disease. He should continue on proton pump inhibitor. (3) Mixed hyperlipidemia Status: Chronic Assessment & Plan: Continue atorvastatin. (4) Anxiety Status: Acute Assessment & Plan: I have taken the liberty of starting him on citalopram. I suspect the anxiety is most likely situational and he should not need prolonged therapy with with this medication. Other this medication can cause some QT prolongation, he has not had any evidence of prolonged QT on his previous electrocardiograms. (5) Morbid obesity Status: Chronic Assessment & Plan: He needs to work on weight loss. He has been counseled in this regard. Problem Qualifiers (1) Chest pain: Chest pain type: unspecified Qualified Codes: R07.9 - Chest pain, unspecified ROSALINDA PIÑA JR, MD Nov 05, 2021 09:36
[2021-11-05] MEDS ORDERED: ONDA4TAB11 PO ×2 (12:13)
--- NOTE | 2021-11-05 12:13 | Discharge Summary ---
Discharge Summary Hospital Course Was the Problem List Reviewed?: Yes Problems/Dx: (1) Non-sustained ventricular tachycardia Status: Acute (2) Chest pain Status: Acute Qualifiers: Qualified Codes: R07.9 - Chest pain, unspecified (3) Anxiety Status: Acute (4) Morbid obesity Status: Chronic Hospital Course Date of Admission: Nov 03, 2021 at 19:00 Admission Diagnosis : Family Physician/Provider: Zackary Arriaga MD Date of Discharge: 11/05/21 Discharge Diagnosis: V-tachy, N/V Hospital Course: Pt had an uneventful hospital course after he was admitted for recurrent Vtach. Dr. Hudson did discontinue Metoprolol and pt was put on Cardizem. He has an appt for an MRI of his heart. He will see an nurse specialist at in one week. Labs and Pending Lab Test: Laboratory Tests 11/05/21 06:33: White Blood Count 7.0, Red Blood Count 4.64, Hemoglobin 14.0, Hematocrit 42, Mean Corpuscular Volume 90, Mean Corpuscular Hemoglobin 30, Mean Corpuscular Hemoglobin Concent 34, Red Cell Distribution Width 13.2, Platelet Count 275, Mean Platelet Volume 9.2, Immature Granulocyte % (Auto) 0, Neutrophils (%) (Auto) 58, Lymphocytes (%) (Auto) 30, Monocytes (%) (Auto) 7, Eosinophils (%) (Auto) 4, Basophils (%) (Auto) 1, Neutrophils # (Auto) 4.1, Lymphocytes # (Auto) 2.1, Monocytes # (Auto) 0.5, Eosinophils # (Auto) 0.3, Basophils # (Auto) 0.1, Immature Granulocyte # (Auto) 0.0, Sodium Level 136, Potassium Level 4.0, Chloride Level 106, Carbon Dioxide Level 22, Anion Gap 8, Blood Urea Nitrogen 9, Creatinine 0.90, Estimat Glomerular Filtration Rate 103, BUN/Creatinine Ratio 10, Glucose Level 89, Calcium Level 8.4L, Corrected Calcium 8.5, Total Bilirubin 0.5, Aspartate Amino Transf (AST/SGOT) 23, Alanine Aminotransferase (ALT/SGPT) 40, Alkaline Phosphatase 59, Total Protein 6.5, Albumin 3.9 Home Meds Active Diltiazem 24Hr ER (Diltiazem HCl) 240 Mg Cap.er.24h 240 Mg PO DAILY Citalopram HBr (Citalopram Hydrobromide) 10 Mg Tablet 10 Mg PO DAILY Metoprolol Succinate 50 Mg Tab.er.24h 50 Mg PO DAILY Reported Sucralfate 1 Gram Tablet 1 Gm PO QID Levothyroxine (Levothyroxine Sodium) 75 Mcg Capsule 75 Mcg PO DAILY Omeprazole 40 Mg Capsule.dr 40 Mg PO DAILY Proair Hfa (Albuterol Sulfate) 1 Puff Puff 2 Puff IH Q4H PRN Advair 250-50 Diskus (Fluticasone/Salmeterol) 250 Mcg-50 Mcg/Dose Blst.w.dev 1 Puff IH BID Pregabalin 75 Mg Capsule 75 Mg PO HS Aspirin EC (Aspirin) 81 Mg Tablet. 81 Mg PO DAILY Atorvastatin Calcium 10 Mg Tablet 10 Mg PO DAILY Alprazolam 0.5 Mg Tablet 0.5 Mg PO HS Assessment/Pt Instructions Cardiology and EP as scheduled Discharge Planning: <30 minutes discharge planning Discharge Instructions Discharge Diet: No Restrictions Discharge Physical Examination Vital Signs Vital Signs Date Time Temp Pulse Resp B/P (MAP) Pulse Ox O2 Delivery O2 Flow Rate FiO2 11/05/21 08:32 36.8 70 19 142/71 (94) 96 Room Air 11/04/21 07:57 0.00 General Appearance: No Apparent Distress, WD/WN, Chronically ill Respiratory: Lungs Clear, Normal Breath Sounds Cardiovascular: Regular Rate, Rhythm Neurologic/Psychiatric: Alert, Oriented x3, No Motor/Sensory Deficits, Normal Mood/Affect Allergies: Coded Allergies: No Known Drug Allergies (Unverified , 11/04/21) Discharge Summary Date of Admission Nov 03, 2021 at 19:00 Date of Discharge Discharge Date: Nov 05, 2021 Discharge Diagnosis (1) Non-sustained ventricular tachycardia Status: Acute Assessment & Plan: - Cardiology consult, appreciate recommendations, Patient has monitor on, Dr Hudson working on referral to EP (2) Chest pain Status: Acute Assessment & Plan: - Comes and goes with arrythemia, normal cath and echo last week Qualifiers: Qualified Codes: R07.9 - Chest pain, unspecified (3) Anxiety Status: Acute Assessment & Plan: - Started hydroxyzine (4) Morbid obesity Status: Chronic Assessment & Plan: He needs to work on weight loss. He has been counseled in this regard. ЕЛЕНА VYAS DO Nov 05, 2021 12:13
[2021-11-05 12:14] VITALS: BP 123/78
[2021-11-05 15:26] VITALS: BP 104/51
== END 2021-11-05 12:11 | disposition home or self-care (01) ==
LOC: EDUNIT# 15:46 → ER FS 15:47 → 4TH 19:00
PROVIDERS: ADMIT Family Medicine; ATTEND Internal Medicine
DX: I47.2 Ventricular tachycardia (principal); F41.9 Anxiety disorder, unspecified; I10 Essential (primary) hypertension; E66.01 Morbid (severe) obesity due to excess calories; Z68.42 Body mass index [BMI] 45.0-49.9, adult; Z79.899 Other long term (current) drug therapy
CPT/HCPCS: 36415; 71045; 80053 ×3; 83690; 83735; 83880; 84484; 85025 ×3; 85610; 85730; 93005; 93041; 94760 ×2; 96361 ×2; 96376 ×2; 99284; G0378

== ENCOUNTER 2021-11-07 18:38 | Inpatient (IN) | payer BC ==
[~2021-11-07] VITALS: Ht 175.2 cm; Wt 154.4 kg
[~2021-11-07 18:38] MED LIST changes: +CITA10TA9 PO; +DILT240C91 PO; +LEVO75CA5 PO; +ONDA4TAB11 PO; +SUCR1TAB PO
--- NOTE | 2021-11-07 18:51 | ED Cardiac General ---
History of Present Illness General Stated Complaint: IRR HEART RATE History of Present Illness Date Seen by Provider: Nov 07, 2021 Time Seen by Provider: 18:51 Initial Comments 51-year-old male presents with irregular heartbeat and palpitations that started about 1 hour prior to admission. He has some shortness of breath that was associated with it but he was not sure if it was from the fast heart rate or from the fact he was just really anxious. Patient has been admitted twice for ventricular tachycardia and was recently switched from metoprolol to Cardizem. 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 Patient denies any nausea vomiting fevers chills chest pain or other systemic complaints. Allergies and Home Medications Allergies Coded Allergies: No Known Drug Allergies (Unverified , 11/04/21) Patient Home Medication List Home Medication List Reviewed: Yes Albuterol Sulfate (Proair Hfa) 1 Puff Puff, 2 PUFF IH Q4H PRN for SHORTNESS OF BREATH, (Reported) Entered as Reported by: LINH MURCIA on 10/25/21 1043 Alprazolam (Alprazolam) 0.5 Mg Tablet, 0.5 MG PO HS, (Reported) Entered as Reported by: LINH MURCIA on 10/25/21 1043 Aspirin (Aspirin EC) 81 Mg Tablet.dr, 81 MG PO DAILY, (Reported) Entered as Reported by: LINH MURCIA on 10/25/21 1043 Atorvastatin Calcium (Atorvastatin Calcium) 10 Mg Tablet, 10 MG PO DAILY, (Reported) Entered as Reported by: LINH MURCIA on 10/25/21 1043 Citalopram Hydrobromide (Citalopram HBr) 10 Mg Tablet, 10 MG PO DAILY Prescribed by: ROSALINDA HUDSON JR, MD on 11/05/21 0934 Diltiazem HCl (Diltiazem 24Hr ER) 240 Mg Cap.er.24h, 240 MG PO DAILY Prescribed by: ROSALINDA HUDSON JR, MD on 11/05/21 0934 Fluticasone/Salmeterol (Advair 250-50 Diskus) 250 Mcg-50 Mcg/Dose Blst.w.dev, 1 PUFF IH BID, (Reported) Entered as Reported by: LINH MURCIA on 10/25/21 1043 Levothyroxine Sodium (Levothyroxine) 75 Mcg Capsule, 75 MCG PO DAILY, (Reported) Entered as Reported by: GRAZYNA CUMMINGS on 11/03/212038 Omeprazole (Omeprazole) 40 Mg Capsule.dr, 40 MG PO DAILY, (Reported) Entered as Reported by: LINH MURCIA on 10/25/21 104 Ondansetron (Ondansetron Odt) 4 Mg Tab.rapdis, 4 MG PO Q6H Prescribed by: ЕЛЕНА VYAS on 11/05/21 1213 Pregabalin (Pregabalin) 75 Mg Capsule, 75 MG PO HS, (Reported) Entered as Reported by: LINH MURCIA on 10/25/21 104 Sucralfate (Sucralfate) 1 Gram Tablet, 1 GM PO QID, (Reported) Entered as Reported by: GRAZYNA CUMMINGS on 11/03/212044 Discontinued Medications Levothyroxine Sodium (Levothyroxine Sodium) 50 Mcg Tablet, 50 MCG PO DAILY, (Reported) Discontinued Reason: No Longer Taking Entered as Reported by: LINH MURCIA on 10/25/21 104 Metoprolol Succinate (Metoprolol Succinate) 50 Mg Tab.er.24h, 50 MG PO DAILY Prescribed by: ROSALINDA HUDSON JR, MD on 10/25/21 1312 Review of Systems Review of Systems Constitutional: No chills, No dizziness, No fever Respiratory: Denies Cough; Shortness of Air Cardiovascular: Denies Chest Pain; Irregular Heart Rate, Palpitations Gastrointestinal: Denies Abdominal Pain, Denies Nausea, Denies Vomiting Genitourinary: No Symptoms Reported, Burning Musculoskeletal: no symptoms reported Skin: no symptoms reported Psychiatric/Neurological: No Symptoms Reported Endocrine: No Symptoms Reported Hematologic/Lymphatic: No Symptoms Reported Past Wmovwcg-Hfaxzp-Xhlfla Hx Immunizations Up To Date First/Initial COVID19 Vaccinat: Yes Second COVID19 Vaccination Steve: Yes Third COVID19 Vaccination Date: Yes Past Medical History Surgery/Hospitalization HX: Hypothyroidism; Anxiety; High Cholesterol; Obesity; NSVT; Cardiac cath Surgeries: No Respiratory: No Sleep Apnea Currently Using CPAP: No Currently Using BIPAP: No Cardiac: No High Cholesterol, Hypertension Neurological: No Genitourinary: No Gastrointestinal: No Musculoskeletal: No Endocrine: No HEENT: No Cancer: No Psychosocial: No Integumentary: No Blood Disorders: No Physical Exam Vital Signs Vital Signs - First Documented 11/07/21 11/07/21 18:40 19:30 Temp 36.6 Pulse 163 Resp 13 B/P (MAP) 166/68 (100) Pulse Ox 99 O2 Delivery Room Air O2 Flow Rate 2.00 Capillary Refill : Height, Weight, BMI Height: '" Weight: lbs. oz. 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 Tested Skin: Normal Color, Warm/Dry Progress/Results/Core Measures Results/Orders Lab Results Laboratory Tests Test 11/07/21 19:00 Range/Units White Blood Count 12.3 H 4.3-11.0 10^3/uL Red Blood Count 5.02 4.30-5.52 10^6/uL Hemoglobin 15.0 13.3-17.7 g/dL Hematocrit 42 40-54 % Mean Corpuscular Volume 85 80-99 fL Mean Corpuscular Hemoglobin 30 25-34 pg Mean Corpuscular Hemoglobin Concent 35 32-36 g/dL Red Cell Distribution Width 13.0 10.0-14.5 % Platelet Count 355 130-400 10^3/uL Mean Platelet Volume 8.9 L 9.0-12.2 fL Immature Granulocyte % (Auto) 0 % Neutrophils (%) (Auto) 56 42-75 % Lymphocytes (%) (Auto) 32 12-44 % Monocytes (%) (Auto) 8 0-12 % Eosinophils (%) (Auto) 3 0-10 % Basophils (%) (Auto) 1 0-10 % Neutrophils # (Auto) 6.9 1.8-7.8 10^3/uL Lymphocytes # (Auto) 4.0 1.0-4.0 10^3/uL Monocytes # (Auto) 1.0 0.0-1.0 10^3/uL Eosinophils # (Auto) 0.4 H 0.0-0.3 10^3/uL Basophils # (Auto) 0.1 0.0-0.1 10^3/uL Immature Granulocyte # (Auto) 0.0 0.0-0.1 10^3/uL Sodium Level 137 135-145 MMOL/L Potassium Level 3.5 L 3.6-5.0 MMOL/L Chloride Level 98 98-107 MMOL/L Carbon Dioxide Level 24 21-32 MMOL/L Anion Gap 15 H 5-14 MMOL/L Blood Urea Nitrogen 12 7-18 MG/DL Creatinine 1.01 0.60-1.30 MG/DL Estimat Glomerular Filtration Rate 89 BUN/Creatinine Ratio 12 Glucose Level 134 H 70-105 MG/DL Calcium Level 9.4 8.5-10.1 MG/DL Corrected Calcium 8.5-10.1 MG/DL Magnesium Level 1.9 1.6-2.4 MG/DL Total Bilirubin 0.3 0.1-1.0 MG/DL Aspartate Amino Transf (AST/SGOT) 23 5-34 U/L Alanine Aminotransferase (ALT/SGPT) 38 0-55 U/L Alkaline Phosphatase 83 40-136 U/L Troponin I < 0.30 <0.30 NG/ML Total Protein 7.5 6.4-8.2 GM/DL Albumin 4.6 H 3.2-4.5 GM/DL My Orders Orders - GI JOVEL DO Cbc With Automated Diff (11/07/21 18:56) Comprehensive Metabolic Panel (11/07/21 18:56) Magnesium (11/07/21 18:56) Troponin I Fs (11/07/21 18:56) Ekg Tracing (11/07/21 18:56) Monitor-Rhythm Ecg Trace Only (11/07/21 18:56) Diltiazem Injection (Cardizem Injection) (11/07/21 19:00) Lorazepam Injection (Ativan Injection) (11/07/21 19:15) Lorazepam Injection (Ativan Injection) (11/07/21 19:12) Diltiazem Injection (Cardizem Injection) (11/07/21 19:30) Ed Admission (Communication) (11/07/21 19:43) Medications Given in ED Current Medications Medications Dose Ordered Sig/Reagan Route Start Time Stop Time Status Last Admin Dose Admin Diltiazem HCl 20 mg ONCE ONCE IVP 11/07/21 19:00 11/07/21 19:01 DC 11/07/21 19:04 20 MG Diltiazem HCl 20 mg ONCE ONCE IVP 11/07/21 19:30 11/07/21 19:31 DC 11/07/21 19:23 20 MG Lorazepam 1 mg ONCE ONCE IVP 11/07/21 19:15 11/07/21 19:16 DC 11/07/21 19:14 1 MG Lorazepam 2 mg STK-MED ONCE .ROUTE 11/07/21 19:12 11/07/21 19:15 DC 11/07/21 20:11 2 MG Vital Signs/I&O 11/07/21 11/07/21 11/07/21 11/07/21 18:40 19:30 19:45 20:24 Temp 36.6 Pulse 163 117 116 110 Resp 13 12 24 14 B/P (MAP) 166/68 (100) 127/59 121/76 126/61 Pulse Ox 99 94 96 95 O2 Delivery Room Air Nasal Cannula Nasal Cannula Nasal Cannula O2 Flow Rate 2.00 2.00 2.00 11/07/21 21:00 Temp 36.5 Pulse 110 Resp 12 B/P (MAP) 129/93 Pulse Ox 94 O2 Delivery Nasal Cannula O2 Flow Rate 2.00 Progress Progress Note : Progress Note Patient with atrial fib. Patient was given 2 IV boluses of Cardizem. On his initial IV bolus his heart rate went from the 140s down to the 110s and then return to the 140s. Patient was given a second additional IV bolus and his heart rates been sustaining around 90s to the 120s. Called and discussed with Dr. Hudson with Dr. Vyas. We will admit to [facility] where patient's medication is likely to be changed to sotalol. Patient will not be started on any further medications and be transferred down to the ICU for further management. Upon arrival Dr. Hudson will start the sotalol. Patient stable upon transfer. Initial ECG Impression Date: Nov 07, 2021 Initial ECG Impression Time: 18:52 Initial ECG Rate: 144 Initial ECG Rhythm: A Fib/Flutter Comment Atrial fib with RVR Departure Impression Primary Impression: Atrial fibrillation with rapid ventricular response Additional Impression: Ventricular tachycardia Disposition: 30 STILL A PATIENT Condition: Stable Admissions Decision to Admit Reason: Admit from ER (General) Decision to Admit/Date: Nov 07, 2021 Time/Decision to Admit Time: 19:42 Departure-Patient Inst. Referrals: COLIN LUA MD (PCP/Family) Primary Care Physician GI JOVEL DO Nov 07, 2021 18:51
[2021-11-07 19:03] LABS: BASOPHILS # (AUTO) 0.1 10^3/uL (0.0-0.1); BASOPHILS % (AUTO) 1 % (0-10); EOSINOPHILS # (AUTO) 0.4 10^3/uL (0.0-0.3); EOSINOPHILS % (AUTO) 3 % (0-10); HEMATOCRIT 42 % (40-54); LYMPHOCYTES % (AUTO) 32 % (12-44); MEAN CORPUSCULAR HEMOGLOBIN 30 pg (25-34); MEAN CORPUSCULAR HGB CONC 35 g/dL (32-36); MEAN CORPUSCULAR VOLUME 85 fL (80-99); MEAN PLATELET VOLUME 8.9 fL (9.0-12.2); MONOCYTES % (AUTO) 8 % (0-12); NEUTROPHILS # (AUTO) 6.9 10^3/uL (1.8-7.8); NEUTROPHILS % (AUTO) 56 % (42-75); PLATELET COUNT 355 10^3/uL (130-400); WHITE BLOOD COUNT 12.3 10^3/uL (4.3-11.0)
[2021-11-07] MEDS ORDERED: LORazepam INJ 2 MG/ML (ATIVAN) VIAL ONE (19:12)
[2021-11-07] MEDS ORDERED: LORazepam INJ 2 MG/ML (ATIVAN) VIAL IVP ONE (19:15)
[2021-11-07 19:23] LABS: CARBON DIOXIDE 24 MMOL/L (21-32); CHLORIDE 98 MMOL/L (98-107); POTASSIUM 3.5 MMOL/L (3.6-5.0); SODIUM 137 MMOL/L (135-145)
[2021-11-07 19:24] LABS: ALANINE AMINOTRANSFERASE 38 U/L (0-55); ALBUMIN 4.6 GM/DL (3.2-4.5); ALKALINE PHOSPHATASE 83 U/L (40-136); BILIRUBIN,TOTAL 0.3 MG/DL (0.1-1.0); BUN/CREATININE RATIO 12; CALCIUM 9.4 MG/DL (8.5-10.1); CREATININE SERUM 1.01 MG/DL (0.60-1.30); GFR ESTIMATED 89; GLUCOSE 134 MG/DL (70-105); MAGNESIUM 1.9 MG/DL (1.6-2.4); TOTAL PROTEIN 7.5 GM/DL (6.4-8.2)
[2021-11-07] MEDS ORDERED: diphenhydrAMINE 50 MG/ML INJ (BENADRYL) IVP PRN (21:15)
[2021-11-07] MEDS ORDERED: MELATONIN 3 MG TABLET PO PRN (21:15)
[2021-11-07] MEDS ORDERED: SOTALOL 80 MG (BETAPACE) TAB PO ONE (21:15)
[2021-11-07] MEDS ORDERED: diphenhydrAMINE 25 MG TAB (BENADRYL) PO PRN (21:15)
[2021-11-07] MEDS ORDERED: NS IV 500 ML 500 ML IV PRN (21:15)
[2021-11-07] MEDS ORDERED: polyethylene glycoL POWDER 17 GM (MIRALAX) PACK PO PRN (21:15)
[2021-11-07] MEDS ORDERED: ONDANSETRON 4 MG (ZOFRAN) ORAL DISSOLVE TAB PO PRN (21:15)
[2021-11-07] MEDS ORDERED: morphine INJ 4 MG/ML 1 ML (VIAL/SYRINGE) IV PRN (21:15)
[2021-11-07] MEDS ORDERED: ONDANSETRON 4 MG/2 ML (SDV) Z0FRAN IV PRN (21:15)
[2021-11-07] MEDS ORDERED: ENOXAPARIN 40 MG/0.4 ML (LOVENOX) SYR SC SCH (21:15)
[2021-11-07] MEDS ORDERED: BISACODYL 10 MG SUPP (DULCOLAX) PR PRN (21:15)
[2021-11-07] MEDS ORDERED: ACETAMINOPHEN 325 MG TABLET PO PRN (21:15)
[2021-11-07] MEDS ORDERED: ENOXAPARIN 40 MG/0.4 ML (LOVENOX) SYR ONE (21:26)
--- NOTE | 2021-11-07 21:51 | Tele-ICU Progress Note ---
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 D/C from hospital on 11/05/21 with MRI and EP appointments No fever, chills, CP or N/V. Vitals stable -Labs K 3.5 and Mag 1.9 with WBC 12.3 1.A-fib w RVR 2, Hx of Hypothyroidism Cardizem, Lovenox , Sotolol Cards consulted Viewed Pt on camera, COMFORTABLE W/O ANY DISTRESS. Focused Exam Height, Weight, BMI Height: '" Weight: lbs. oz. kg; 46.00 BMI Method: BARBARA SKY MD Nov 07, 2021 21:51
--- NOTE | 2021-11-07 22:01 | Consultation-Cardiology ---
HPI-Cardiology Cardiology Consultation: Date of Consultation 11/07/21 Date of Admission 11/07/21 Attending Physician Zackary Arriaga MD Admitting Physician Admitting Physician: Alma Rosa Vyas DO Attending Physician: Alma Rosa Vyas DO Consulting Physician ROSALINDA PIÑA JR, MD HPI: Time Seen by a Provider: 21:58 Chief Complaint: REASON FOR CONSULTATION: Atrial fibrillation. I had the pleasure of seeing Hiren in the intensive care unit at [facility] in [place], [place] this evening. He is well-known to me from 2 previous hospitalizations within the past few weeks for ventricular tachycardia. He had initially been placed on beta-chandler which controlled the ventricular tachycardia but then he had breakthrough. He was readmitted to the hospital and started on diltiazem and just last week. After 2 nights in the hospital he was discharged home. During his initial encounter with the ventricular tachycardia, he underwent an echocardiogram that showed normal ejection fraction and a cardiac catheterization that showed no significant coronary artery disease. He is actually scheduled to have a cardiac MRI tomorrow and then an electrophysiology consultation on Monday at [facility]. Today he was actually feeling reasonably well. He had done some chores around the house but then this evening he was watching television and suddenly had a burning sensation in his chest. He felt as though he was having heartburn. He got up and took a Pepcid but a short while later developed palpitations with a sensation of rapid heartbeat. This made him feel very short of breath. He alerted his who then took him to the emergency room in [place]. He was found to have atrial fibrillation and was given intravenous diltiazem. I was then notified of the atrial fibrillation and he was transferred to our hospital for further treatment and evaluation. When I saw him in the intensive care unit, his palpitations improved. His shortness of breath was also improved. He denies chest discomfort, paroxysmal nocturnal dyspnea, or orthopnea. He has had some intermittent lightheaded spells but denies any syncope. He denies any lower extremity edema. Certain portions of this document may have been dictated utilizing voice recognition technology. Inherent to this technology, typographical and grammatical errors may exist. As much as I am diligent to identify and correct these mistakes, some errors may remain in the document. Review of Systems-Cardiology Review of Systems Other comments Review of 10 organ systems is as per the history of present illness, otherwise negative. TEI-Ofmvtb-Xzxuay Hx Patient Social History Marrital Status: Smoking Status: Never a Smoker 2nd Hand Smoke Exposure: No Have you traveled recently?: No Alcohol Use?: No Pt feels they are or have been: No Past Medical History PMH As described under Assessment. Family Medical History Family Medical History: His mother and 2 of his brother had atrial fibrillation but he does not know of any family history of premature coronary artery disease in first-degree relatives. Allergies and Home Medications Allergies Coded Allergies: No Known Drug Allergies (Unverified , 11/04/21) Patient Home Medication List Home Medication List Reviewed: Yes Albuterol Sulfate (Proair Hfa) 1 Puff Puff, 2 PUFF IH Q4H PRN for SHORTNESS OF BREATH, (Reported) Entered as Reported by: LINH MURCIA on 10/25/211042 Last Action: Reviewed Alprazolam (Alprazolam) 0.5 Mg Tablet, 0.5 MG PO HS, (Reported) Entered as Reported by: LINH MURCIA on 10/25/211042 Last Action: Continued Aspirin (Aspirin EC) 81 Mg Tablet.dr, 81 MG PO DAILY, (Reported) Entered as Reported by: LINH MURCIA on 10/25/211042 Last Action: Continued Atorvastatin Calcium (Atorvastatin Calcium) 10 Mg Tablet, 10 MG PO DAILY, (Reported) Entered as Reported by: LINH MURCIA on 10/25/211042 Last Action: Continued Citalopram Hydrobromide (Citalopram HBr) 10 Mg Tablet, 10 MG PO DAILY Prescribed by: ROSALINDA PIÑA JR, MD on 11/05/21933 Last Action: Continued Diltiazem HCl (Diltiazem 24Hr ER) 240 Mg Cap.er.24h, 240 MG PO DAILY Prescribed by: ROSALINDA PIÑA JR, MD on 11/05/21933 Last Action: Continued Famotidine (Pepcid AC) 10 Mg Tablet, 10 MG PO PRN PRN for INDIGESTION, (Reported) Entered as Reported by: MICHAEL NAVAS on 11/08/21818 Last Action: New Order Fluticasone/Salmeterol (Advair 250-50 Diskus) 250 Mcg-50 Mcg/Dose Blst.w.dev, 1 PUFF IH BID, (Reported) Entered as Reported by: LINH MURCIA on 10/25/211042 Last Action: Reviewed Levothyroxine Sodium (Levothyroxine) 75 Mcg Capsule, 75 MCG PO DAILY, (Reported) Entered as Reported by: GRAZYNA CUMMINGS on 11/03/212038 Last Action: Converted Omeprazole (Omeprazole) 40 Mg Capsule.dr, 40 MG PO DAILY, (Reported) Entered as Reported by: LINH MURCIA on 10/25/211042 Last Action: Converted Ondansetron (Ondansetron Odt) 4 Mg Tab.rapdis, 4 MG PO Q6H Prescribed by: ALMA ROSA VYAS on 11/05/21 121 Last Action: Continued Pregabalin (Pregabalin) 75 Mg Capsule, 75 MG PO BID, (Reported) Entered as Reported by: MICHAEL NAVAS on 11/08/21818 Last Action: New Order Sucralfate (Sucralfate) 1 Gram Tablet, 1 GM PO QID, (Reported) Entered as Reported by: GRAZYNA CUMMINGS on 11/03/212044 Last Action: Reviewed Discontinued Medications Levothyroxine Sodium (Levothyroxine Sodium) 50 Mcg Tablet, 50 MCG PO DAILY, (Reported) Discontinued Reason: No Longer Taking Entered as Reported by: LINH MURCIA on 10/25/211042 Metoprolol Succinate (Metoprolol Succinate) 50 Mg Tab.er.24h, 50 MG PO DAILY Prescribed by: ROSALINDA PIÑA JR, MD on 10/25/21 1312 Pregabalin (Pregabalin) 75 Mg Capsule, 75 MG PO HS, (Reported) Discontinued Reason: No Longer Taking Entered as Reported by: LINH MURCIA on 10/25/211042 Last Action: Discontinued Exam Vital Signs Vital Signs Date Time Temp Pulse Resp B/P (MAP) Pulse Ox O2 Delivery O2 Flow Rate FiO2 11/08/21 08:00 68 7 112/82 97 Nasal Cannula 2.00 11/08/21 04:00 36.0 Physical Exam General: Alert. No acute distress. Well nourished and appears stated age. He is obese. Eye: Extraocular movements are intact. Conjunctivae are clear. There are no xanthelasma. HENT: Normocephalic. Atraumatic. Carotid pulsations 2/2 without bruits. Neck: Jugular venous pressure does not appear elevated. No thyromegaly appreciated. Respiratory: Lungs are clear to auscultation. Respirations are non-labored. Breath sounds are equal. Symmetrical chest wall expansion. Cardiovascular: Irregularly irregular rate and rhythm. No murmur. No gallop. Point of maximal impulse is not appear displaced. Good pulses equal in all extremities. No edema. Gastrointestinal: Soft. Normal bowel sounds. Skin: Skin turgor is normal. There is no pallor. Musculoskeletal: No kyphosis or scoliosis appreciated. Neurologic: Alert and oriented to person, place, time. Cranial nerves 3-12 appear grossly intact. The patient has good motor tone strength in the upper and lower extremities bilaterally. Psychiatric: Cooperative. Appropriate mood & affect. Labs Laboratory Tests Test 11/07/21 19:00 11/08/21 05:09 Range/Units White Blood Count 12.3 H 8.7 4.3-11.0 10^3/uL Red Blood Count 5.02 4.90 4.30-5.52 10^6/uL Hemoglobin 15.0 14.6 13.3-17.7 g/dL Hematocrit 42 43 40-54 % Mean Corpuscular Volume 85 87 80-99 fL Mean Corpuscular Hemoglobin 30 30 25-34 pg Mean Corpuscular Hemoglobin Concent 35 34 32-36 g/dL Red Cell Distribution Width 13.0 13.2 10.0-14.5 % Platelet Count 355 303 130-400 10^3/uL Mean Platelet Volume 8.9 L 9.2 9.0-12.2 fL Immature Granulocyte % (Auto) 0 0 % Neutrophils (%) (Auto) 56 62 42-75 % Lymphocytes (%) (Auto) 32 28 12-44 % Monocytes (%) (Auto) 8 7 0-12 % Eosinophils (%) (Auto) 3 3 0-10 % Basophils (%) (Auto) 1 1 0-10 % Neutrophils # (Auto) 6.9 5.4 1.8-7.8 10^3/uL Lymphocytes # (Auto) 4.0 2.5 1.0-4.0 10^3/uL Monocytes # (Auto) 1.0 0.6 0.0-1.0 10^3/uL Eosinophils # (Auto) 0.4 H 0.2 0.0-0.3 10^3/uL Basophils # (Auto) 0.1 0.1 0.0-0.1 10^3/uL Immature Granulocyte # (Auto) 0.0 0.0 0.0-0.1 10^3/uL Sodium Level 137 140 135-145 MMOL/L Potassium Level 3.5 L 4.0 3.6-5.0 MMOL/L Chloride Level 98 103 98-107 MMOL/L Carbon Dioxide Level 24 26 21-32 MMOL/L Anion Gap 15 H 11 5-14 MMOL/L Blood Urea Nitrogen 12 11 7-18 MG/DL Creatinine 1.01 0.94 0.60-1.30 MG/DL Estimat Glomerular Filtration Rate 89 98 BUN/Creatinine Ratio 12 12 Glucose Level 134 H 97 70-105 MG/DL Calcium Level 9.4 9.2 8.5-10.1 MG/DL Corrected Calcium 9.2 8.5-10.1 MG/DL Magnesium Level 1.9 2.1 1.6-2.4 MG/DL Total Bilirubin 0.3 0.5 0.1-1.0 MG/DL Aspartate Amino Transf (AST/SGOT) 23 18 5-34 U/L Alanine Aminotransferase (ALT/SGPT) 38 40 0-55 U/L Alkaline Phosphatase 83 62 40-136 U/L Troponin I < 0.30 <0.30 NG/ML Total Protein 7.5 6.8 6.4-8.2 GM/DL Albumin 4.6 H 4.0 3.2-4.5 GM/DL Phosphorus Level 4.9 H 2.3-4.7 MG/DL Diagnosis/Problems Diagnosis/Problems (1) Paroxysmal atrial fibrillation Assessment & Plan: This is a new finding in this patient. I will start therapy with sotalol. He will be monitored on telemetry. I will also start him on Eliquis for stroke prophylaxis. (2) Ventricular tachycardia Status: Acute Assessment & Plan: Continue diltiazem. This seems to have been suppressing the ventricular tachycardia. He has a consultation with electrophysiology later in the week as an outpatient. (3) Mixed hyperlipidemia Status: Chronic Assessment & Plan: Continue statin medication. (4) Morbid obesity Status: Chronic Assessment & Plan: He needs to work on weight loss. ROSALINDA PIÑA JR, MD Nov 07, 2021 22:01
[2021-11-07 22:24] VITALS: BP 129/93
[2021-11-07] MEDS ORDERED: RT-ALBUTEROL/IPRATROPIUM 3 ML (DUONEB) VIAL INH PRN (22:45)
[2021-11-08] MEDS: LORazepam 1 MG (ATIVAN) TAB PO PRN ×2 (00:01→14:47)
[2021-11-08] MEDS ORDERED: APIXABAN 5 MG (ELIQUIS) TABLET PO ONE (01:15)
[2021-11-08 05:19] LABS: BASOPHILS # (AUTO) 0.1 10^3/uL (0.0-0.1); BASOPHILS % (AUTO) 1 % (0-10); EOSINOPHILS # (AUTO) 0.2 10^3/uL (0.0-0.3); EOSINOPHILS % (AUTO) 3 % (0-10); HEMATOCRIT 43 % (40-54); HEMOGLOBIN 14.6 g/dL (13.3-17.7); LYMPHOCYTES # (AUTO) 2.5 10^3/uL (1.0-4.0); LYMPHOCYTES % (AUTO) 28 % (12-44); MEAN CORPUSCULAR HEMOGLOBIN 30 pg (25-34); MEAN CORPUSCULAR HGB CONC 34 g/dL (32-36); MEAN CORPUSCULAR VOLUME 87 fL (80-99); MEAN PLATELET VOLUME 9.2 fL (9.0-12.2); MONOCYTES # (AUTO) 0.6 10^3/uL (0.0-1.0); MONOCYTES % (AUTO) 7 % (0-12); NEUTROPHILS # (AUTO) 5.4 10^3/uL (1.8-7.8); NEUTROPHILS % (AUTO) 62 % (42-75); PLATELET COUNT 303 10^3/uL (130-400); WHITE BLOOD COUNT 8.7 10^3/uL (4.3-11.0)
[2021-11-08 05:33] LABS: CALCIUM 9.2 MG/DL (8.5-10.1)
[2021-11-08 05:34] LABS: TOTAL PROTEIN 6.8 GM/DL (6.4-8.2)
[2021-11-08 05:36] LABS: BILIRUBIN,TOTAL 0.5 MG/DL (0.1-1.0)
[2021-11-08 05:37] LABS: PHOSPHORUS 4.9 MG/DL (2.3-4.7)
[2021-11-08 05:38] LABS: CREATININE SERUM 0.94 MG/DL (0.60-1.30)
[2021-11-08 05:41] LABS: MAGNESIUM 2.1 MG/DL (1.6-2.4)
[2021-11-08] MEDS ORDERED: MAGNESIUM 1 GM/100 ML IVPB 100 ML IV SCH (06:00)
[2021-11-08] MEDS ORDERED: POTASSIUM CL 10MEQ/50ML IVPB 50 ML IV SCH (06:00)
[2021-11-08] MEDS ORDERED: KCL 20 MEQ TAB (K-DUR) PO SCH (06:00)
[2021-11-08] MEDS: APIXABAN 5 MG (ELIQUIS) TABLET PO SCH ×2 (07:55→21:31)
[2021-11-08] MEDS: DOCUSATE SODIUM 100 MG (COLACE) CAP PO SCH ×2 (07:56→21:30)
[2021-11-08] MEDS ORDERED: LEVOTHYROXINE 75 MCG (LEVOTHROID) TABLET PO SCH (08:00)
[2021-11-08] MEDS ORDERED: FAMO10TA43 PO (08:19)
[2021-11-08] MEDS ORDERED: PREG75CA75 PO ×2 (08:19)
[2021-11-08] MEDS ORDERED: ONDANSETRON 4 MG (ZOFRAN) ORAL DISSOLVE TAB PO SCH (08:30)
--- NOTE | 2021-11-08 08:30 | Tele-ICU Progress Note ---
Subjective Date Seen by a Provider: Nov 08, 2021 Time Seen by a Provider: 08:26 Subjective/Events-last exam 51 yo M with Hx of VT, had been on beta chandler and then cardizem, Now has A fib with RVR, had been on IV cardizem, now on po Cardizem will add sotolol potassium and magnesium levels normal in past echo shows normal LVEF and in CCL no CAD Sepsis Event Evaluation Height, Weight, BMI Height: '" Weight: lbs. oz. kg; 47.46 BMI Method: Exam Exam Patient acknowledged, consented, and participated in this virtual visit which was conducted using real time audio/video Vital Signs Date Time Temp Pulse Resp B/P (MAP) Pulse Ox O2 Delivery O2 Flow Rate FiO2 11/08/21 07:25 59 11/08/21 06:00 60 13 107/71 93 Nasal Cannula 2.00 11/08/21 05:00 55 14 95/60 95 Nasal Cannula 2.00 11/08/21 04:00 36.0 11/08/21 04:00 95 Nasal Cannula 2.00 11/08/21 04:00 60 10 98/56 95 Nasal Cannula 2.00 11/08/21 03:00 64 13 108/71 91 Nasal Cannula 2.00 11/08/21 02:00 57 12 103/63 91 Nasal Cannula 2.00 11/08/21 01:00 61 11/08/21 01:00 61 91/46 96 Nasal Cannula 2.00 11/08/21 00:00 69 17 109/64 96 Nasal Cannula 2.00 11/07/21 23:45 68 12 108/75 95 Nasal Cannula 2.00 11/07/21 23:32 63 11/07/21 23:30 72 9 107/82 96 Nasal Cannula 2.00 11/07/21 23:18 95 Nasal Cannula 2.00 11/07/21 23:15 71 9 117/75 97 Nasal Cannula 2.00 11/07/21 23:10 69 11/07/21 23:00 71 9 112/73 96 Nasal Cannula 2.00 11/07/21 22:45 86 10 107/83 96 Nasal Cannula 2.00 11/07/21 22:30 81 9 111/86 96 Nasal Cannula 2.00 11/07/21 22:24 36.5 111 94 11/07/21 22:15 96 12 110/79 96 Nasal Cannula 2.00 11/07/21 22:00 96 8 124/91 96 Nasal Cannula 2.00 11/07/21 21:45 93 11 120/78 95 Nasal Cannula 2.00 11/07/21 21:32 111 11/07/21 21:30 116 16 124/83 94 Nasal Cannula 2.00 11/07/21 21:15 98 12 138/87 92 Nasal Cannula 2.00 11/07/21 21:05 116 11/07/21 21:00 36.5 110 12 129/93 94 Nasal Cannula 2.00 11/07/21 20:24 110 14 126/61 95 Nasal Cannula 2.00 11/07/21 19:45 116 24 121/76 96 Nasal Cannula 2.00 11/07/21 19:30 117 12 127/59 94 Nasal Cannula 2.00 11/07/21 18:40 36.6 163 13 166/68 (100) 99 Room Air I & O 11/08/21 07:00 Intake Total 300 ml Output Total 1400 ml Balance -1100 ml Height & Weight Height: '" Weight: lbs. oz. 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
--- NOTE | 2021-11-08 08:39 | Cardiology Progress Note ---
Progress Note-Cardiology Events since last exam Date Seen by Provider: Nov 08, 2021 Time Seen by Provider: 08:36 Events since last exam I am following him due to atrial fibrillation. He converted to sinus rhythm about 1 hour after he received his first dose of oral sotalol on 11/07. His palpitations have resolved. He denies chest discomfort, dyspnea at rest, syncope, or ankle edema. He has been having some issues with esophageal reflux symptoms over the past few weeks. His primary provider just recently started him on sucralfate but this medication is difficult for him to swallow because of the size of the pill. Certain portions of this document may have been dictated utilizing voice recognition technology. Inherent to this technology, typographical and grammatical errors may exist. As much as I am diligent to identify and correct these mistakes, some errors may remain in the document. Vitals Last set of Vitals Signs Vital Signs 11/08/21 13:00 Pulse 66 Resp 10 B/P (MAP) 132/86 Pulse Ox 97 O2 Delivery Nasal Cannula O2 Flow Rate 2.00 Labs Labs Laboratory Tests 11/07/21 19:00 11/08/21 05:09 Exam Vital Signs Vital Signs Date Time Temp Pulse Resp B/P (MAP) Pulse Ox O2 Delivery O2 Flow Rate FiO2 11/08/21 13:00 66 10 132/86 97 Nasal Cannula 2.00 11/08/21 12:00 35.8 Physical Exam General: Alert. No acute distress. He is obese. Eye: No xanthelasma. HENT: Normocephalic. Neck: Jugular venous pressure does not appear elevated. Respiratory: Lungs are clear to auscultation. Respirations are non-labored. Breath sounds are equal. Symmetrical chest wall expansion. Cardiovascular: Normal rate. Regular rhythm. No murmur. No gallop. No edema. Gastrointestinal: Soft. Normal bowel sounds. Skin: Warm. Dry. Neurologic: Alert and oriented to person, place, time. Cranial nerves 3-11 grossly intact. Psychiatric: Cooperative. Appropriate mood & affect. Labs Laboratory Tests Test 11/07/21 19:00 11/08/21 05:09 Range/Units White Blood Count 12.3 H 8.7 4.3-11.0 10^3/uL Red Blood Count 5.02 4.90 4.30-5.52 10^6/uL Hemoglobin 15.0 14.6 13.3-17.7 g/dL Hematocrit 42 43 40-54 % Mean Corpuscular Volume 85 87 80-99 fL Mean Corpuscular Hemoglobin 30 30 25-34 pg Mean Corpuscular Hemoglobin Concent 35 34 32-36 g/dL Red Cell Distribution Width 13.0 13.2 10.0-14.5 % Platelet Count 355 303 130-400 10^3/uL Mean Platelet Volume 8.9 L 9.2 9.0-12.2 fL Immature Granulocyte % (Auto) 0 0 % Neutrophils (%) (Auto) 56 62 42-75 % Lymphocytes (%) (Auto) 32 28 12-44 % Monocytes (%) (Auto) 8 7 0-12 % Eosinophils (%) (Auto) 3 3 0-10 % Basophils (%) (Auto) 1 1 0-10 % Neutrophils # (Auto) 6.9 5.4 1.8-7.8 10^3/uL Lymphocytes # (Auto) 4.0 2.5 1.0-4.0 10^3/uL Monocytes # (Auto) 1.0 0.6 0.0-1.0 10^3/uL Eosinophils # (Auto) 0.4 H 0.2 0.0-0.3 10^3/uL Basophils # (Auto) 0.1 0.1 0.0-0.1 10^3/uL Immature Granulocyte # (Auto) 0.0 0.0 0.0-0.1 10^3/uL Sodium Level 137 140 135-145 MMOL/L Potassium Level 3.5 L 4.0 3.6-5.0 MMOL/L Chloride Level 98 103 98-107 MMOL/L Carbon Dioxide Level 24 26 21-32 MMOL/L Anion Gap 15 H 11 5-14 MMOL/L Blood Urea Nitrogen 12 11 7-18 MG/DL Creatinine 1.01 0.94 0.60-1.30 MG/DL Estimat Glomerular Filtration Rate 89 98 BUN/Creatinine Ratio 12 12 Glucose Level 134 H 97 70-105 MG/DL Calcium Level 9.4 9.2 8.5-10.1 MG/DL Corrected Calcium 9.2 8.5-10.1 MG/DL Magnesium Level 1.9 2.1 1.6-2.4 MG/DL Total Bilirubin 0.3 0.5 0.1-1.0 MG/DL Aspartate Amino Transf (AST/SGOT) 23 18 5-34 U/L Alanine Aminotransferase (ALT/SGPT) 38 40 0-55 U/L Alkaline Phosphatase 83 62 40-136 U/L Troponin I < 0.30 <0.30 NG/ML Total Protein 7.5 6.8 6.4-8.2 GM/DL Albumin 4.6 H 4.0 3.2-4.5 GM/DL Phosphorus Level 4.9 H 2.3-4.7 MG/DL Diagnosis/Problems Diagnosis/Problems (1) Paroxysmal atrial fibrillation Assessment & Plan: This is a new finding in this patient. I have initiated therapy with sotalol. He will be monitored on telemetry. QTc has been stable. I will also start him on Eliquis for stroke prophylaxis. After he receives 5 doses of the medication, I will plan to discharge him to home. There has been a recent move towards initiating sotalol therapy as an outpatient with daily electrocardiograms in the office. This all started during the COVID pandemic due to lack of hospital beds. However, this patient also has underlying ventricular tachycardia. As such, I told him he should stay in the hospital on telemetry monitoring while initiating therapy with sotalol. Sotalol can be associated with torsades de point if there is QT prolongation. (2) Ventricular tachycardia Status: Acute Assessment & Plan: Continue diltiazem. This seems to have been suppressing the ventricular tachycardia. He has a consultation with electrophysiology later in the week as an outpatient. (3) Mixed hyperlipidemia Status: Chronic Assessment & Plan: Continue atorvastatin. (4) Gastroesophageal reflux disease without esophagitis Assessment & Plan: I suggest he change his proton pump inhibitor to twice daily dosing as opposed to adding sucralfate. (5) Morbid obesity Status: Chronic Assessment & Plan: He needs to work on weight loss. He has already lost 17 pounds since this recent diagnosis of ventricular tachycardia. ROSALINDA PIÑA JR, MD Nov 08, 2021 08:39
[2021-11-08] MEDS: PANTOPRAZOLE 40 MG (PROTONIX) TAB PO SCH ×2 (09:00→21:30)
[2021-11-08] MEDS ORDERED: AtorvaSTATin TABLET 10 MG TABLET PO SCH ×2 (09:00→21:00)
[2021-11-08] MEDS ORDERED: SOTALOL 80 MG (BETAPACE) TAB PO SCH (09:00)
[2021-11-08] MEDS ORDERED: PANTOPRAZOLE 40 MG (PROTONIX) TAB PO SCH (09:00)
[2021-11-08] MEDS ORDERED: ASPIRIN E.C. 81 MG (ECOTRIN) TAB PO SCH (09:00)
[2021-11-08] MEDS ORDERED: ENOXAPARIN 40 MG/0.4 ML (LOVENOX) SYR SC SCH (09:00)
[2021-11-08] MEDS ORDERED: PATIENT MAY USE OWN MEDS, ALL MC SCH (10:15)
[2021-11-08] MEDS ORDERED: DILT240C86 PO ×2 (10:33)
[2021-11-08] MEDS ORDERED: CITA10TA9 PO ×2 (10:33)
[2021-11-08] MEDS ORDERED: PEPCID COMPLETE PO ×2 (10:33)
[2021-11-08] MEDS ORDERED: LEVO75TA6 PO ×2 (10:33)
[2021-11-08] MEDS ORDERED: ONDA4TAB11 PO ×2 (10:33)
--- NOTE | 2021-11-08 11:16 | History & Physical-Hospitalist ---
CLARISSA ALEX 11/08/21 1116: History of Present Illness HPI/Chief Complaint CC: A rositab. w/ RVR HPI: 51-year-old male presented to ER on 11/04/21 with irregular heartbeat and palpitations that started about 1 hour prior to admission. He has some shortness of breath that was associated with it but he was not sure if it was from the fast heart rate or from the fact he was just really anxious. Patient has been admitted twice for ventricular tachycardia and was recently switched from metoprolol to Cardizem. Patient was discharged on 11/05/2021 and has an e lectrophysiologist appointment on Monday. Pt was converted to sinus rhythm post sotalol infusion. Currently reports no chest pain, SOB, palpitations, or diaphoresis. Pt notes mild nausea and moderate appetite. Source: patient Exam Limitations: no limitations Date Seen 11/08/21 Time Seen by a Provider: 09:45 Attending Physician Zackary Arriaga MD PCP Admitting Physician: Alma Rosa Vyas DO Attending Physician: Alma Rosa Vyas DO Referring Physician Date of Admission Nov 07, 2021 at 21:00 Home Medications & Allergies Home Medications Reviewed patient Home Medication Reconciliation performed by pharmacy medication reconciliations plastic surgery technician and/or nursing. Patients Allergies have been reviewed. Allergies Allergies Coded Allergies No Known Drug Allergies (Unverified11/04/21) Past Hzjvhmz-Jhbqrr-Mzeycj Hx Patient Social History Marrital Status: Employed/Student: employed Tobacco Use?: No Smoking Status: Never a Smoker Substance use?: No Alcohol Use?: No Pt feels they are or have been: No Immunizations Up To Date First/Initial COVID19 Vaccinat: Yes Second COVID19 Vaccination Steve: Yes Current Status Advance Directives: No Primary Language: Tamazight Preferred Spoken Language: Tamazight Past Medical History Surgeries: Cardiac (cardiac cath) Sleep Apnea Currently Using CPAP: No Currently Using BIPAP: No High Cholesterol, Hypertension, Irregular Heartbeat Blood Disorders: No Review of Systems Constitutional: No diaphoresis; dizziness (upon standing); No fever; other (Den ies LOC) EENTM: no symptoms reported Respiratory: No orthopnea, No short of breath, No wheezing Cardiovascular: No chest pain, No edema, No palpitations Gastrointestinal: No abdominal pain, No constipation, No diarrhea, No loss of appetite; nausea; No vomiting Genitourinary: No dysuria, No hesitancy, No incontinence, No pain Musculoskeletal: No back pain, No joint pain, No muscle pain Skin: no symptoms reported Psychiatric/Neurological: No Symptoms Reported Physical Exam Physical Exam Vital Signs Vital Signs - First Documented 11/07/21 11/07/21 18:40 19:30 Temp 36.6 Pulse 163 Resp 13 B/P (MAP) 166/68 (100) Pulse Ox 99 O2 Delivery Room Air O2 Flow Rate 2.00 Capillary Refill : Less Than 3 Seconds Height, Weight, BMI Height: '" Weight: lbs. oz. kg; 47.46 BMI Method: General Appearance: No Apparent Distress HEENT: Pale Conjunctivae (L), Pale Conjunctivae (R) Neck: No JVD Respiratory: Lungs Clear, Normal Breath Sounds, No Accessory Muscle Use, No Respiratory Distress Cardiovascular: Regular Rate, Rhythm, No Edema, No Gallop, No JVD, No Murmur, Normal Peripheral Pulses Gastrointestinal: Normal Bowel Sounds, No Organomegaly, No Pulsatile Mass, Non Tender, Soft Extremity: Non Tender, No Calf Tenderness, No Pedal Edema Neurologic/Psychiatric: Alert, Oriented x3, Normal Mood/Affect Skin: Normal Color, Warm/Dry; No Diaphoresis Results Results/Procedures Labs Laboratory Tests 11/07/21 19:00 11/08/21 05:09 Patient resulted labs reviewed. Assessment/Plan Admission Diagnosis A. Fibb w/ RVR Admission Status: Inpatient Order (span 2 midnights) Reason for Inpatient Admission: A. fibb with rvr + chest pain+ anxiety Assessment and Plan 1) A Fibb. w/ RVR * continue sotalol infusion * montior EKG and potassium * avoid hyoptension * Appt w/ [employer] senior courtroom clerk for possible ablation on 11/10/21 2) V. Tach * continue Cardizem * continue to monitor with telemetry 3) Hypothyroidism * restart Levothyroxine 75 mcg * Obtain TSH, T3, T4 * continue to monitor 4) Hypercoaguable state * Continue Levonox, Eloquis, and statin therapy per stroke protocol Clinical Quality Measures AMI/AHF: ASA po Prior to arrival: ALMA ROSA Almazan DO 11/08/212131: History of Present Illness HPI/Chief Complaint CC: Afib with RVR with episodes of V Tach HPI: This is a 51 yr old male who was just discharged on Monday. He presented again to [place] ER with afib with RVR and episodes of V Tach. He was given Cardizem bolus. He was started on Sodelol infusion and Dr. Hudson is managing. Source: patient Exam Limitations: no limitations Physical Exam Physical Exam General Appearance: No Apparent Distress, Chronically ill Respiratory: Lungs Clear Cardiovascular: Regular Rate, Rhythm Assessment/Plan Admission Diagnosis AF RVR V tach hx Hypothyroidism Admission Status: Inpatient Order (span 2 midnights) Reason for Inpatient Admission: sotolol Supervisory-Addendum Brief Verification & Attestation Participated in pt care: history, MDM, physical Personally performed: exam, history, MDM, supervision of care Care discussed with: Medical Student Procedures: n/a Results interpretation: Verified all documentation Verification and Attestation of Medical Student E/M Service A medical student performed and documented this service in my presence. I reviewed and verified all information documented by the medical student and made modifications to such information, when appropriate. I personally performed the physical exam and medical decision making. Alma Rosa Vyas, Nov 08, 2021,21:31 CLARISSA ALEX Nov 08, 2021 11:16 ALMA ROSA VYAS DO Nov 08, 2021 21:32
[2021-11-08] MEDS: ANTACID SUSP 30 ML UDC (MYLANTA) PO PRN (11:29)
[2021-11-08] MEDS: RT--FLUTICASONE/SALMETEROL 113-14 (AIRDUO RespiCLICK) IH SCH ×2 (11:55→20:42)
[2021-11-08] MEDS ORDERED: FAMOTIDINE 20 MG (PEPCID) TABLET PO PRN (13:30)
[2021-11-08] MEDS ORDERED: RT-ALBUTEROL SULF 2.5 MG/3 ML PRE-MIX VIAL IH PRN (13:30)
[2021-11-08] MEDS ORDERED: PEPCID COMPLETE PO PRN (13:30)
[2021-11-08] MEDS: SUCRALFATE 1 GM (CARAFATE) TAB PO SCH ×3 (18:19→21:34)
[2021-11-08] MEDS ORDERED: PREGABALIN 75 MG (LYRICA) CAP PO SCH (21:00)
[2021-11-08] MEDS ORDERED: NON-FORMULARY MEDICATION 1 EA EA (Fluticasone/Salmeterol (Advair 250-50 Diskus) 1 PUFF) IH SCH (21:00)
[2021-11-08] MEDS ORDERED: ALPRAZolam 0.5 MG (XANAX) TAB PO SCH (21:00)
[2021-11-08] MEDS: SOTALOL 80 MG (BETAPACE) TAB PO SCH (21:30)
[2021-11-09 05:44] LABS: BASOPHILS # (AUTO) 0.1 10^3/uL (0.0-0.1); BASOPHILS % (AUTO) 1 % (0-10); EOSINOPHILS # (AUTO) 0.4 10^3/uL (0.0-0.3); EOSINOPHILS % (AUTO) 4 % (0-10); HEMATOCRIT 45 % (40-54); HEMOGLOBIN 14.8 g/dL (13.3-17.7); LYMPHOCYTES # (AUTO) 2.8 10^3/uL (1.0-4.0); LYMPHOCYTES % (AUTO) 30 % (12-44); MEAN CORPUSCULAR HEMOGLOBIN 29 pg (25-34); MEAN CORPUSCULAR HGB CONC 33 g/dL (32-36); MEAN CORPUSCULAR VOLUME 89 fL (80-99); MEAN PLATELET VOLUME 9.4 fL (9.0-12.2); MONOCYTES # (AUTO) 0.7 10^3/uL (0.0-1.0); MONOCYTES % (AUTO) 8 % (0-12); NEUTROPHILS # (AUTO) 5.6 10^3/uL (1.8-7.8); NEUTROPHILS % (AUTO) 58 % (42-75); PLATELET COUNT 321 10^3/uL (130-400); WHITE BLOOD COUNT 9.6 10^3/uL (4.3-11.0)
[2021-11-09 06:01] LABS: ALBUMIN 4.1 GM/DL (3.2-4.5); POTASSIUM 3.9 MMOL/L (3.6-5.0)
[2021-11-09 06:03] LABS: CALCIUM 9.1 MG/DL (8.5-10.1)
[2021-11-09 06:06] LABS: BILIRUBIN,TOTAL 0.6 MG/DL (0.1-1.0)
[2021-11-09 06:07] LABS: PHOSPHORUS 4.3 MG/DL (2.3-4.7)
[2021-11-09 06:08] LABS: CREATININE SERUM 1.01 MG/DL (0.60-1.30)
[2021-11-09 06:10] LABS: MAGNESIUM 2.3 MG/DL (1.6-2.4)
[2021-11-09] MEDS ORDERED: LEVOTHYROXINE 75 MCG (LEVOTHROID) TABLET PO SCH ×2 (06:30→09:00)
[2021-11-09] MEDS: RT--FLUTICASONE/SALMETEROL 113-14 (AIRDUO RespiCLICK) IH SCH (08:16)
[2021-11-09] MEDS ORDERED: ASPIRIN E.C. 81 MG (ECOTRIN) TAB PO SCH (09:00)
[2021-11-09] MEDS: SOTALOL 80 MG (BETAPACE) TAB PO SCH (09:07)
[2021-11-09] MEDS: APIXABAN 5 MG (ELIQUIS) TABLET PO SCH (09:08)
[2021-11-09] MEDS: DOCUSATE SODIUM 100 MG (COLACE) CAP PO SCH (09:08)
[2021-11-09] MEDS: SUCRALFATE 1 GM (CARAFATE) TAB PO SCH ×3 (09:09→17:34)
[2021-11-09] MEDS: PANTOPRAZOLE 40 MG (PROTONIX) TAB PO SCH (09:09)
--- NOTE | 2021-11-09 10:35 | Cardiology Progress Note ---
Progress Note-Cardiology Events since last exam Date Seen by Provider: Nov 09, 2021 Time Seen by Provider: 08:20 Events since last exam I am following him due to atrial fibrillation and ventricular tachycardia. He had some premature supraventricular complexe last evening but did not go back into atrial fibrillation. He denies chest discomfort, dyspnea, palpitations, syncope, or ankle edema. He has been having some acid reflux symptoms. Certain portions of this document may have been dictated utilizing voice recognition technology. Inherent to this technology, typographical and grammatical errors may exist. As much as I am diligent to identify and correct these mistakes, some errors may remain in the document. Vitals Last set of Vitals Signs Vital Signs 11/09/21 11/09/21 11/09/21 09:00 12:00 12:37 Temp 36.4 Pulse 63 Resp 8 B/P (MAP) 132/78 Pulse Ox 96 O2 Delivery Room Air O2 Flow Rate 2.00 Labs Labs Laboratory Tests 11/09/21 04:59 Exam Vital Signs Vital Signs Date Time Temp Pulse Resp B/P (MAP) Pulse Ox O2 Delivery O2 Flow Rate FiO2 11/09/21 12:37 36.4 63 8 132/78 96 11/09/21 12:00 Room Air 11/09/21 09:00 2.00 Physical Exam General: Alert. No acute distress. He is obese. Eye: No xanthelasma. HENT: Normocephalic. Neck: Jugular venous pressure does not appear elevated. Respiratory: Lungs are clear to auscultation. Respirations are non-labored. Breath sounds are equal. Symmetrical chest wall expansion. Cardiovascular: Normal rate. Regular rhythm. No murmur. No gallop. No edema. Gastrointestinal: Soft. Normal bowel sounds. Skin: Warm. Dry. Neurologic: Alert and oriented to person, place, time. Cranial nerves 3-11 grossly intact. Psychiatric: Cooperative. Appropriate mood & affect. Electrocardiogram shows sinus bradycardia with QTc approximately 450 ms. Labs Laboratory Tests Test 11/09/21 04:59 Range/Units White Blood Count 9.6 4.3-11.0 10^3/uL Red Blood Count 5.03 4.30-5.52 10^6/uL Hemoglobin 14.8 13.3-17.7 g/dL Hematocrit 45 40-54 % Mean Corpuscular Volume 89 80-99 fL Mean Corpuscular Hemoglobin 29 25-34 pg Mean Corpuscular Hemoglobin Concent 33 32-36 g/dL Red Cell Distribution Width 13.1 10.0-14.5 % Platelet Count 321 130-400 10^3/uL Mean Platelet Volume 9.4 9.0-12.2 fL Immature Granulocyte % (Auto) 0 % Neutrophils (%) (Auto) 58 42-75 % Lymphocytes (%) (Auto) 30 12-44 % Monocytes (%) (Auto) 8 0-12 % Eosinophils (%) (Auto) 4 0-10 % Basophils (%) (Auto) 1 0-10 % Neutrophils # (Auto) 5.6 1.8-7.8 10^3/uL Lymphocytes # (Auto) 2.8 1.0-4.0 10^3/uL Monocytes # (Auto) 0.7 0.0-1.0 10^3/uL Eosinophils # (Auto) 0.4 H 0.0-0.3 10^3/uL Basophils # (Auto) 0.1 0.0-0.1 10^3/uL Immature Granulocyte # (Auto) 0.0 0.0-0.1 10^3/uL Sodium Level 138 135-145 MMOL/L Potassium Level 3.9 3.6-5.0 MMOL/L Chloride Level 103 98-107 MMOL/L Carbon Dioxide Level 25 21-32 MMOL/L Anion Gap 10 5-14 MMOL/L Blood Urea Nitrogen 11 7-18 MG/DL Creatinine 1.01 0.60-1.30 MG/DL Estimat Glomerular Filtration Rate 89 BUN/Creatinine Ratio 11 Glucose Level 89 70-105 MG/DL Calcium Level 9.1 8.5-10.1 MG/DL Corrected Calcium 9.0 8.5-10.1 MG/DL Phosphorus Level 4.3 2.3-4.7 MG/DL Magnesium Level 2.3 1.6-2.4 MG/DL Total Bilirubin 0.6 0.1-1.0 MG/DL Aspartate Amino Transf (AST/SGOT) 22 5-34 U/L Alanine Aminotransferase (ALT/SGPT) 45 0-55 U/L Alkaline Phosphatase 61 40-136 U/L Total Protein 7.0 6.4-8.2 GM/DL Albumin 4.1 3.2-4.5 GM/DL Diagnosis/Problems Diagnosis/Problems (1) Paroxysmal atrial fibrillation Assessment & Plan: This is a new finding in this patient. I have initiated therapy with sotalol. He will be monitored on telemetry. QTc has been stable. I also started him on Eliquis for stroke prophylaxis. His fifth dose of sotalol will be this evening and if his QTC remains acceptable, he can be discharged to home tonight. (2) Ventricular tachycardia Status: Acute Assessment & Plan: Continue diltiazem. This seems to have been suppressing the ventricular tachycardia. He has a consultation with electrophysiology at [facility] tomorrow morning. There is no indication for a LifeVest because he has a normal ejection fraction and has not had any evidence of sustained ventricular tachycardia. (3) Mixed hyperlipidemia Status: Chronic Assessment & Plan: Continue atorvastatin. (4) Gastroesophageal reflux disease without esophagitis Assessment & Plan: I suggest he change his proton pump inhibitor to twice daily dosing as opposed to adding sucralfate which is what his primary provider had done before he was admitted. (5) Morbid obesity Status: Chronic Assessment & Plan: He needs to work on weight loss. He has already lost 17 pounds since this recent diagnosis of ventricular tachycardia. ROSALINDA PIÑA JR, MD Nov 09, 2021 10:35
[2021-11-09] MEDS: ANTACID SUSP 30 ML UDC (MYLANTA) PO PRN (12:13)
[2021-11-09] MEDS ORDERED: STL80T PO ×4 (13:05→15:24)
[2021-11-09] MEDS ORDERED: APIX5TAB PO ×2 (13:05)
[2021-11-09] MEDS ORDERED: SOTALOL 80 MG (BETAPACE) TAB PO NR (17:00)
--- NOTE | 2021-11-09 17:35 | Discharge Summary ---
Discharge Summary Hospital Course Was the Problem List Reviewed?: Yes Problems/Dx: (1) Paroxysmal atrial fibrillation (2) Ventricular tachycardia Status: Acute (3) Mixed hyperlipidemia Status: Chronic (4) Gastroesophageal reflux disease without esophagitis (5) Morbid obesity Status: Chronic Hospital Course Date of Admission: Nov 07, 2021 at 21:00 Admission Diagnosis : Family Physician/Provider: Zackary Arriaga MD Date of Discharge: 11/09/21 Discharge Diagnosis: A. fib with RVR, episodes of V. tach Hospital Course: Short course after he was given Cardizem bolus and placed on sotalol infusion he did well and tolerated the medication and was discharged improved condition for follow-up at [facility] study tomorrow Labs and Pending Lab Test: Laboratory Tests 11/09/21 04:59: White Blood Count 9.6, Red Blood Count 5.03, Hemoglobin 14.8, Hematocrit 45, Mean Corpuscular Volume 89, Mean Corpuscular Hemoglobin 29, Mean Corpuscular Hemoglobin Concent 33, Red Cell Distribution Width 13.1, Platelet Count 321, Mean Platelet Volume 9.4, Immature Granulocyte % (Auto) 0, Neutrophils (%) (Auto) 58, Lymphocytes (%) (Auto) 30, Monocytes (%) (Auto) 8, Eosinophils (%) (Auto) 4, Basophils (%) (Auto) 1, Neutrophils # (Auto) 5.6, Lymphocytes # (Auto) 2.8, Monocytes # (Auto) 0.7, Eosinophils # (Auto) 0.4H, Basophils # (Auto) 0.1, Immature Granulocyte # (Auto) 0.0, Sodium Level 138, Potassium Level 3.9, Chloride Level 103, Carbon Dioxide Level 25, Anion Gap 10, Blood Urea Nitrogen 11, Creatinine 1.01, Estimat Glomerular Filtration Rate 89, BUN/Creatinine Ratio 11, Glucose Level 89, Calcium Level 9.1, Corrected Calcium 9.0, Phosphorus Level 4.3, Magnesium Level 2.3, Total Bilirubin 0.6, Aspartate Amino Transf (AST/SGOT) 22, Alanine Aminotransferase (ALT/SGPT) 45, Alkaline Phosphatase 61, Total Protein 7.0, Albumin 4.1 Microbiology 11/07/21 MRSA Screen - Final, Complete Home Meds Active Sotalol (Sotalol HCl) 80 Mg Tablet 80 Mg PO BID Eliquis (Apixaban) 5 Mg Tablet 5 Mg PO BID Reported [Pepcid Complete] 1 Ea PO BID PRN Citalopram HBr (Citalopram Hydrobromide) 10 Mg Tablet 10 Mg PO DAILY Levothyroxine Sodium 75 Mcg Tablet 75 Mcg PO DAILY Cardizem Cd (Diltiazem HCl) 240 Mg Cap.er.24h 240 Mg PO DAILY Ondansetron Odt (Ondansetron) 4 Mg Tab.rapdis 4 Mg PO Q6H PRN Pregabalin 75 Mg Capsule 75 Mg PO HS Sucralfate 1 Gram Tablet 1 Gm PO QID Omeprazole 40 Mg Capsule.dr 40 Mg PO HS Proair Hfa (Albuterol Sulfate) 1 Puff Puff 2 Puff IH Q4H PRN Advair 250-50 Diskus (Fluticasone/Salmeterol) 250 Mcg-50 Mcg/Dose Blst.w.dev 1 Puff IH BID Aspirin EC (Aspirin) 81 Mg Tablet. 81 Mg PO DAILY Atorvastatin Calcium 10 Mg Tablet 10 Mg PO HS Alprazolam 0.5 Mg Tablet 0.5 Mg PO HS Assessment/Pt Instructions [facility] cardiology EP Discharge Planning: <30 minutes discharge planning Discharge Instructions Discharge Diet: No Restrictions Discharge Physical Examination Vital Signs Vital Signs Date Time Temp Pulse Resp B/P (MAP) Pulse Ox O2 Delivery O2 Flow Rate FiO2 11/09/21 17:06 61 11/09/21 15:37 36.1 18 148/99 92 11/09/21 12:00 Room Air 11/09/21 09:00 2.00 General Appearance: No Apparent Distress, WD/WN, Chronically ill, Obese Allergies: Coded Allergies: No Known Drug Allergies (Unverified , 11/04/21) Discharge Summary Date of Admission Nov 07, 2021 at 21:00 Date of Discharge Discharge Date: Nov 09, 2021 Admission Diagnosis AF RVR V tach hx Hypothyroidism Discharge Diagnosis (1) Paroxysmal atrial fibrillation Assessment & Plan: This is a new finding in this patient. I have initiated therapy with sotalol. He will be monitored on telemetry. QTc has been stable. I also started him on Eliquis for stroke prophylaxis. His fifth dose of sotalol will be this evening and if his QTC remains acceptable, he can be discharged to home tonight. (2) Ventricular tachycardia Status: Acute Assessment & Plan: Continue diltiazem. This seems to have been suppressing the ventricular tachycardia. He has a consultation with electrophysiology at [facility] tomorrow morning. There is no indication for a LifeVest because he has a normal ejection fraction and has not had any evidence of sustained ventricular tachycardia. (3) Mixed hyperlipidemia Status: Chronic Assessment & Plan: Continue atorvastatin. (4) Gastroesophageal reflux disease without esophagitis Assessment & Plan: I suggest he change his proton pump inhibitor to twice daily dosing as opposed to adding sucralfate which is what his primary provider had done before he was admitted. (5) Morbid obesity Status: Chronic Assessment & Plan: He needs to work on weight loss. He has already lost 17 pounds since this recent diagnosis of ventricular tachycardia. Clinical Quality Measures AMI/AHF: ASA po Prior to arrival: ЕЛЕНА Almazan DO Nov 09, 2021 17:35
[2021-11-10] MEDS ORDERED: SOTALOL 80 MG (BETAPACE) TAB PO SCH (09:00)
== END 2021-11-09 18:25 | disposition home or self-care (01) | DRG 309 ==
LOC: EDUNIT# 18:38 → ER FS 18:39 → ICU 21:00 → CSD 11-08 20:24
PROVIDERS: ADMIT Internal Medicine; ATTEND Internal Medicine
DX: I48.0 Paroxysmal atrial fibrillation (principal); Z68.43 Body mass index [BMI] 50.0-59.9, adult; I47.2 Ventricular tachycardia; E66.01 Morbid (severe) obesity due to excess calories; G47.33 Obstructive sleep apnea (adult) (pediatric); K21.9 Gastro-esophageal reflux disease without esophagitis; E78.2 Mixed hyperlipidemia; E03.9 Hypothyroidism, unspecified; F41.9 Anxiety disorder, unspecified; I10 Essential (primary) hypertension; Z79.82 Long term (current) use of aspirin
CPT/HCPCS: 36415; 80053; 83735; 84100; 84484; 85025; 87081; 93005; 93041; 94640

== ENCOUNTER 2022-01-24 15:38 | Emergency (ER) | payer BC ==
[~2022-01-24] VITALS: Ht 175.3 cm; Wt 149.7 kg
[~2022-01-24 15:38] MED LIST changes: +APIX5TAB PO; +DILT240C86 PO; +FAMO10TA43 PO; +LEVO75TA6 PO; +PEPCID COMPLETE PO; +STL80T PO
[2022-01-24] MEDS ORDERED: FAMOTIDINE 20 MG (PEPCID) TABLET PO STA (15:56)
[2022-01-24] MEDS ORDERED: ANTACID SUSP 30 ML UDC (MYLANTA) PO ONE (16:00)
[2022-01-24] MEDS ORDERED: LIDOCAINE 2% VISCOUS 15 ML UDC PO ONE (16:00)
[2022-01-24] MEDS ORDERED: ACETAMINOPHEN 500 MG TAB (TYLENOL) PO ONE (16:00)
[2022-01-24] MEDS ORDERED: ONDANSETRON 4 MG/2 ML (SDV) Z0FRAN IVP ONE (16:00)
--- NOTE | 2022-01-24 16:02 | ED Cardiac General ---
History of Present Illness General Chief Complaint: Cardiac/General Problems Stated Complaint: NAUSEA,HEADACHE,HEART PALPITATION Source: patient Exam Limitations: no limitations History of Present Illness Date Seen by Provider: Jan 24, 2022 Time Seen by Provider: 15:42 Initial Comments 51-year-old male with past medical history of SVT and GERD most notably coming in due to multiple symptoms, nausea, headache, general malaise, and 2 episodes of heart palpitations since yesterday. Over the past several months he has seen numerous financial analysis consultant including harness mender at . Initially it was thought he was going into V. tach. It has since been changed to SVT with aberrancy instead of v tach. He is on Sotalol for this and has been doing well. He has had a normal cardiac MRI. He denies any coronary artery disease. He has plans for SVT ablation in the future. He states a lot of the symptoms of him feeling bad started after he received his flu vaccine. He denies any fever that he knows of, chest pain, shortness of breath, abdominal pain, vomiting, diarrhea, dysuria, weakness, numbness, rash, or any other concerns. Allergies and Home Medications Allergies Coded Allergies: No Known Drug Allergies (Unverified , 11/04/21) Patient Home Medication List Home Medication List Reviewed: Yes Albuterol Sulfate (Proair Hfa) 1 Puff Puff, 2 PUFF IH Q4H PRN for SHORTNESS OF BREATH, (Reported) Entered as Reported by: LINH MURCIA on 10/25/21 1043 Alprazolam (Alprazolam) 0.5 Mg Tablet, 0.5 MG PO HS, (Reported) Entered as Reported by: LINH MURCIA on 10/25/21 1043 Apixaban (Eliquis) 5 Mg Tablet, 5 MG PO BID Prescribed by: ROSALINDA PIÑA JR, MD on 11/09/21 1305 Aspirin (Aspirin EC) 81 Mg Tablet., 81 MG PO DAILY, (Reported) Entered as Reported by: LINH MURCIA on 10/25/21 1043 Atorvastatin Calcium (Atorvastatin Calcium) 10 Mg Tablet, 10 MG PO HS, (Reported) Entered as Reported by: LINH MURCIA on 10/25/21 1043 Citalopram Hydrobromide (Citalopram HBr) 10 Mg Tablet, 10 MG PO DAILY, (Reported) Entered as Reported by: LINH MURCIA on 11/08/21 1033 Diltiazem HCl (Cardizem Cd) 240 Mg Cap.er.24h, 240 MG PO DAILY, (Reported) Entered as Reported by: LINH MURCIA on 11/08/21 1033 Fluticasone/Salmeterol (Advair 250-50 Diskus) 250 Mcg-50 Mcg/Dose Blst.w.dev, 1 PUFF IH BID, (Reported) Entered as Reported by: LINH MURCIA on 10/25/21 1043 Levothyroxine Sodium (Levothyroxine Sodium) 75 Mcg Tablet, 75 MCG PO DAILY, (Reported) Entered as Reported by: LINH MURCIA on 11/08/21 1033 Omeprazole (Omeprazole) 40 Mg Capsule.dr, 40 MG PO HS, (Reported) Entered as Reported by: LINH MURCIA on 10/25/21 104 Ondansetron (Ondansetron Odt) 4 Mg Tab.rapdis, 4 MG PO Q6H PRN for NAUSEA/VOMITING-1ST LINE, (Reported) Entered as Reported by: LINH MURCIA on 11/08/21 103 Pregabalin (Pregabalin) 75 Mg Capsule, 75 MG PO HS, (Reported) Entered as Reported by: MICHAEL NAVAS on 11/08/21 0819 Sotalol HCl (Sotalol) 80 Mg Tablet, 80 MG PO BID Prescribed by: ROSALINDA PIÑA JR, MD on 11/09/21 1524 Sucralfate (Sucralfate) 1 Gram Tablet, 1 GM PO QID, (Reported) Entered as Reported by: GRAZYNA CUMMINGS on 11/03/212044 [Pepcid Complete] , 1 EA PO BID PRN for INDIGESTION, (Reported) Entered as Reported by: LINH MURCIA on 11/08/21 1033 Review of Systems Review of Systems Constitutional: No chills, No fever; malaise EENTM: No Blurred Vision Respiratory: Denies Cough Cardiovascular: Denies Chest Pain; Palpitations Gastrointestinal: Denies Abdominal Pain; Nausea; Denies Vomiting Genitourinary: No Symptoms Reported Musculoskeletal: no symptoms reported Skin: no symptoms reported Psychiatric/Neurological: No Symptoms Reported Endocrine: No Symptoms Reported Hematologic/Lymphatic: No Symptoms Reported All Other Systems Reviewed Negative Unless Noted: Yes Past Uuftdwv-Yydzml-Bivfdb Hx Patient Social History Tobacco Use?: No Immunizations Up To Date First/Initial COVID19 Vaccinat: Yes Second COVID19 Vaccination Steve: Yes Third COVID19 Vaccination Date: Yes Past Medical History Surgery/Hospitalization HX: Hypothyroidism; Anxiety; High Cholesterol; Obesity; NSVT; Cardiac cath Surgeries: No Cardiac Respiratory: No Sleep Apnea Currently Using CPAP: No Currently Using BIPAP: No Cardiac: No High Cholesterol, Hypertension, Irregular Heartbeat Neurological: No Genitourinary: No Gastrointestinal: No Musculoskeletal: No Endocrine: No HEENT: No Cancer: No Psychosocial: No Integumentary: No Blood Disorders: No Physical Exam Vital Signs Vital Signs - First Documented 01/24/22 15:41 Temp 36.1 Pulse 82 Resp 20 B/P (MAP) 171/87 (115) Pulse Ox 97 O2 Delivery Room Air Capillary Refill : Height, Weight, BMI Height: '" Weight: lbs. oz. kg; 50.30 BMI Method: General Appearance: No Apparent Distress, WD/WN HEENT: PERRL/EOMI, Normal ENT Inspection, Pharynx Normal Neck: Full Range of Motion, Normal Inspection, Non Tender, Supple Respiratory: Chest Non Tender, Lungs Clear, Normal Breath Sounds, No Accessory Muscle Use, No Respiratory Distress Cardiovascular: Regular Rate, Rhythm, No Edema, Normal Peripheral Pulses Gastrointestinal: Normal Bowel Sounds, Non Tender, Soft; No Distended, No Guarding Extremity: Normal Capillary Refill, Normal Inspection, Normal Range of Motion, Non Tender, No Calf Tenderness, No Pedal Edema Neurologic/Psychiatric: Alert, No Motor/Sensory Deficits, Normal Mood/Affect Skin: Normal Color, Warm/Dry Lymphatic: No Adenopathy Progress/Results/Core Measures Results/Orders Lab Results Laboratory Tests Test 01/24/22 15:55 Range/Units White Blood Count 11.0 4.3-11.0 10^3/uL Red Blood Count 5.33 4.30-5.52 10^6/uL Hemoglobin 15.7 13.3-17.7 g/dL Hematocrit 46 40-54 % Mean Corpuscular Volume 86 80-99 fL Mean Corpuscular Hemoglobin 30 25-34 pg Mean Corpuscular Hemoglobin Concent 34 32-36 g/dL Red Cell Distribution Width 13.6 10.0-14.5 % Platelet Count 257 130-400 10^3/uL Mean Platelet Volume 9.7 9.0-12.2 fL Immature Granulocyte % (Auto) 0 % Neutrophils (%) (Auto) 70 42-75 % Lymphocytes (%) (Auto) 20 12-44 % Monocytes (%) (Auto) 6 0-12 % Eosinophils (%) (Auto) 3 0-10 % Basophils (%) (Auto) 0 0-10 % Neutrophils # (Auto) 7.8 1.8-7.8 10^3/uL Lymphocytes # (Auto) 2.2 1.0-4.0 10^3/uL Monocytes # (Auto) 0.7 0.0-1.0 10^3/uL Eosinophils # (Auto) 0.3 0.0-0.3 10^3/uL Basophils # (Auto) 0.0 0.0-0.1 10^3/uL Immature Granulocyte # (Auto) 0.0 0.0-0.1 10^3/uL Sodium Level 139 135-145 MMOL/L Potassium Level 4.1 3.6-5.0 MMOL/L Chloride Level 100 98-107 MMOL/L Carbon Dioxide Level 26 21-32 MMOL/L Anion Gap 13 5-14 MMOL/L Blood Urea Nitrogen 12 7-18 MG/DL Creatinine 1.08 0.60-1.30 MG/DL Estimat Glomerular Filtration Rate 83 BUN/Creatinine Ratio 11 Glucose Level 117 H 70-105 MG/DL Calcium Level 9.1 8.5-10.1 MG/DL Corrected Calcium 8.5-10.1 MG/DL Magnesium Level 2.2 1.6-2.4 MG/DL Total Bilirubin 0.4 0.1-1.0 MG/DL Aspartate Amino Transf (AST/SGOT) 31 5-34 U/L Alanine Aminotransferase (ALT/SGPT) 32 0-55 U/L Alkaline Phosphatase 80 40-136 U/L Troponin I < 0.30 <0.30 NG/ML Pro-B-Type Natriuretic Peptide 149.8 H <125.0 PG/ML Total Protein 7.5 6.4-8.2 GM/DL Albumin 4.6 H 3.2-4.5 GM/DL Lipase 26 8-78 U/L Influenza Type A (RT-PCR) Not Detected Not Detecte Influenza Type B (RT-PCR) Not Detected Not Detecte SARS-CoV-2 RNA (RT-PCR) Not Detected Not Detecte Smear Scan OCC PLT CLUMPS My Orders Orders - RUBY CENTENO MD Cbc With Automated Diff (01/24/22 15:56) Magnesium (01/24/22 15:56) Chest 1 View Ap/Pa Only (01/24/22 15:56) Ekg Tracing (01/24/22 15:56) Comprehensive Metabolic Panel (01/24/22 15:56) O2 (01/24/22 15:56) Monitor-Rhythm Ecg Trace Only (01/24/22 15:56) Ed Iv/Invasive Line Start (01/24/22 15:56) Lipase (01/24/22 15:56) Troponin I Fs (01/24/22 15:56) Probnp Fs (01/24/22 15:56) Covid 19 Inhouse Test (01/24/22 15:56) Influenza A And B By Pcr (01/24/22 15:56) Lidocaine 2% Viscous 15 Ml (Xylocaine Vi (01/24/22 16:00) Famotidine Tablet (Pepcid Tablet) (01/24/22 15:56) Antacid Suspension (Mylanta Suspension (01/24/22 16:00) Acetaminophen Tablet (Tylenol Tablet) (01/24/22 16:00) Promethazine Tablet (Phenergan Tablet) (01/24/22 16:15) Medications Given in ED Current Medications Medications Dose Ordered Sig/Reagan Route Start Time Stop Time Status Last Admin Dose Admin Acetaminophen 1,000 mg ONCE ONCE PO 01/24/22 16:00 01/24/22 16:01 DC 01/24/22 16:20 1,000 MG Al Hydrox/Mg Hydrox/Simethicone 30 ml ONCE ONCE PO 01/24/22 16:00 01/24/22 16:01 DC 01/24/22 16:20 30 ML Lidocaine HCl 15 ml ONCE ONCE PO 01/24/22 16:00 01/24/22 16:01 DC 01/24/22 16:20 15 ML Promethazine HCl 25 mg ONCE ONCE PO 01/24/22 16:15 01/24/22 16:16 DC 01/24/22 16:21 25 MG Vital Signs/I&O 01/24/22 01/24/22 15:41 15:41 Temp 36.1 Pulse 82 Resp 20 B/P (MAP) 171/87 (115) Pulse Ox 97 O2 Delivery Room Air Room Air Progress Progress Note : Progress Note 51-year-old male presenting for general malaise as well as 2 episodes of palpitations with a known history of SVT. ABCs were intact and vitals were stable on presentation. No SVT on the monitor here, and EKG with sinus rhythm. An IV was placed and basic labs were obtained including cardiac biomarkers which were reassuring. COVID and flu testing negative. Patient better after GI cocktail. I believe he is stable for discharge with outpatient follow-up. He was sent home with strict return precautions Initial ECG Impression Date: Jan 24, 2022 Initial ECG Impression Time: 15:53 Initial ECG Rate: 70 Initial ECG Rhythm: Normal Sinus Comment Narrow QRS, normal axis, no significant ST changes or T wave abnormalities Diagnostic Imaging Diagonstic Imaging: Xray Plain Films/CT/US/NM/MRI: chest Comments [facility] [place], [place] NAME: [facility] REC#: [id number] PT STATUS: REG ER : 1970 PHYSICIAN: RUBY CENTENO MD ADMIT DATE: 01/24/22/ER FS Draft Date of Exam:01/24/22 CHEST 1 VIEW AP/PA ONLY INDICATION: Shortness of breath. TECHNIQUE: Single view chest 4:05 PM. CORRELATION STUDY: 11/03/2021 FINDINGS: Heart size enlarged. Mediastinum prominent. Vasculature overall within normal limits. The lungs are clear with no consolidating infiltrate. There is no significant effusion or pneumothorax. IMPRESSION: 1. Cardiac enlargement without failure. Dictated on workstation # [id number] Dict: 01/24/22 1610 Trans: 01/24/22 161 [id number] Interpreted by: CATALINA DURÁN DO Electronically signed by: Departure Impression Primary Impression: Palpitations Additional Impressions: Malaise Nausea alone Disposition: 01 HOME, SELF-CARE Condition: Improved Departure-Patient Inst. Decision time for Depature: 17:20 Referrals: COLIN LUA MD (PCP/Family) Primary Care Physician Patient Instructions: Palpitations ED Add. Discharge Instructions: Fortunately after watching on the monitor for quite some time you do not appear to be going into any type of arrhythmia such as SVT. Your labs are also reassuring including your electrolytes. You can try taking Maalox at home if you have the symptoms again to see if that helps since that is similar to what you got here. Your flu and COVID test were also negative. Is possible you do just generally not feel well since the flu shot, and likely will improve shortly. Work/School Note: Work Release Form Date Seen in the Emergency Department: Jan 24, 2022 Return to Work: Jan 25, 2022 Restrictions: No Restrictions RUBY CENTENO MD Jan 24, 2022 16:02
[2022-01-24] MEDS ORDERED: ONDANSETRON 4 MG (ZOFRAN) ORAL DISSOLVE TAB PO STA (16:14)
[2022-01-24] MEDS ORDERED: PROMETHAZINE 25 MG (PHENERGAN) TAB PO ONE (16:15)
--- NOTE | 2022-01-24 16:15 | Diagnostic Imaging Report ---
INDICATION: Shortness of breath. TECHNIQUE: Single view chest 4:05 PM. CORRELATION STUDY: 11/03/2021 FINDINGS: Heart size enlarged. Mediastinum prominent. Vasculature overall within normal limits. The lungs are clear with no consolidating infiltrate. There is no significant effusion or pneumothorax. IMPRESSION: 1. Cardiac enlargement without failure. Dictated by: Dictated on workstation # [id number]
[2022-01-24 16:23] LABS: BASOPHILS % (AUTO) 0 % (0-10); EOSINOPHILS # (AUTO) 0.3 10^3/uL (0.0-0.3); EOSINOPHILS % (AUTO) 3 % (0-10); HEMATOCRIT 46 % (40-54); HEMOGLOBIN 15.7 g/dL (13.3-17.7); LYMPHOCYTES # (AUTO) 2.2 10^3/uL (1.0-4.0); LYMPHOCYTES % (AUTO) 20 % (12-44); MEAN CORPUSCULAR HEMOGLOBIN 30 pg (25-34); MEAN CORPUSCULAR HGB CONC 34 g/dL (32-36); MEAN CORPUSCULAR VOLUME 86 fL (80-99); MEAN PLATELET VOLUME 9.7 fL (9.0-12.2); MONOCYTES # (AUTO) 0.7 10^3/uL (0.0-1.0); MONOCYTES % (AUTO) 6 % (0-12); NEUTROPHILS # (AUTO) 7.8 10^3/uL (1.8-7.8); NEUTROPHILS % (AUTO) 70 % (42-75)
[2022-01-24 16:39] LABS: PLATELET COUNT 257 10^3/uL (130-400)
[2022-01-24 16:40] LABS: SMEAR SCAN COMMENT OCC PLT CLUMPS
[2022-01-24 16:59] LABS: CHLORIDE 100 MMOL/L (98-107); POTASSIUM 4.1 MMOL/L (3.6-5.0); SODIUM 139 MMOL/L (135-145)
[2022-01-24 17:00] LABS: ALANINE AMINOTRANSFERASE 32 U/L (0-55); ALBUMIN 4.6 GM/DL (3.2-4.5); ALKALINE PHOSPHATASE 80 U/L (40-136); BILIRUBIN,TOTAL 0.4 MG/DL (0.1-1.0); BUN/CREATININE RATIO 11; CALCIUM 9.1 MG/DL (8.5-10.1); CARBON DIOXIDE 26 MMOL/L (21-32); CREATININE SERUM 1.08 MG/DL (0.60-1.30); GFR ESTIMATED 83; GLUCOSE 117 MG/DL (70-105); LIPASE 26 U/L (8-78); MAGNESIUM 2.2 MG/DL (1.6-2.4); TOTAL PROTEIN 7.5 GM/DL (6.4-8.2)
[2022-01-24] MEDS ORDERED: ALPRAZolam 0.5 MG (XANAX) TAB PO STA (17:24)
[2022-01-24 17:31] VITALS: BP 155/94
== END 2022-01-24 17:31 | disposition home or self-care (01) ==
LOC: EDUNIT# 15:38 → ER FS 15:40
DX: R53.81 Other malaise (principal); R00.2 Palpitations; R11.0 Nausea; E66.9 Obesity, unspecified; Z98.61 Coronary angioplasty status; Z68.43 Body mass index [BMI] 50.0-59.9, adult; Z20.822 Contact with and (suspected) exposure to COVID-19
CPT/HCPCS: 36415; 71045; 80053; 83690; 83735; 83880; 84484; 85025; 87636; 93041

== ENCOUNTER 2022-08-29 19:36 | Emergency (ER) | payer BC ==
[~2022-08-29] VITALS: Ht 180.3 cm; Wt 151.9 kg
[~2022-08-29 19:36] MED LIST changes: +ALBU8.5H6 IH; -RT-ALBUINH IH
[2022-08-29] MEDS ORDERED: NS IV 1000 ML 1,000 ML IV STA (19:48)
[2022-08-29] MEDS ORDERED: LORazepam INJ 2 MG/ML (ATIVAN) VIAL IVP STA (19:53)
--- NOTE | 2022-08-29 19:56 | ED Cardiac General ---
History of Present Illness General Stated Complaint: CHEST TIGHTNESS,SOA Source: patient, family, old records Exam Limitations: no limitations History of Present Illness Date Seen by Provider: August 29, 2022 Time Seen by Provider: 19:37 Initial Comments 52-year-old male with past medical history of paroxysmal A-fib on sotalol, SVT with aberrancy, and high cholesterol coming in due to palpitations, chest discomfort, shortness of breath. He has not felt well for the past couple of days, and he was feeling worse tonight. Denies any fever, chills, weakness, numbness, nausea, vomiting, rash, or any other concerns. The chest discomfort is more of like a pressure, it is very mild, and not all the time. This has been going on for couple of days. He takes baby aspirin daily but no blood thinners. Allergies and Home Medications Allergies Coded Allergies: No Known Drug Allergies (Unverified , 11/04/21) Patient Home Medication List Home Medication List Reviewed: Yes Albuterol Sulfate (Ventolin Hfa) 1 Puff Puff, 2 PUFF IH Q4H PRN for SHORTNESS OF BREATH, (Reported) Entered as Reported by: LINH MURCIA on 10/25/21 1043 Alprazolam (Alprazolam) 0.5 Mg Tablet, 0.5 MG PO HS, (Reported) Entered as Reported by: LINH MURCIA on 10/25/21 1043 Apixaban (Eliquis) 5 Mg Tablet, 5 MG PO BID Prescribed by: ROSALINDA PIÑA JR, MD on 11/09/21 1305 Apixaban (Eliquis) 5 Mg Tablet, 5 MG PO BID Prescribed by: RUBY CENTENO on 08/29/22 210 Aspirin (Aspirin EC) 81 Mg Tablet.dr, 81 MG PO DAILY, (Reported) Entered as Reported by: LINH MURCIA on 10/25/21 1043 Atorvastatin Calcium (Atorvastatin Calcium) 10 Mg Tablet, 10 MG PO HS, (Reported) Entered as Reported by: LINH MURCIA on 10/25/21 1043 Citalopram Hydrobromide (Citalopram HBr) 10 Mg Tablet, 10 MG PO DAILY, (Reported) Entered as Reported by: LINH MURCIA on 11/08/21 1033 Diltiazem HCl (Cardizem Cd) 240 Mg Cap.er.24h, 240 MG PO DAILY, (Reported) Entered as Reported by: LINH MURCIA on 11/08/21 1033 Fluticasone/Salmeterol (Advair 250-50 Diskus) 250 Mcg-50 Mcg/Dose Blst.w.dev, 1 PUFF IH BID, (Reported) Entered as Reported by: LINH MURCIA on 10/25/21 1043 Levothyroxine Sodium (Levothyroxine Sodium) 75 Mcg Tablet, 75 MCG PO DAILY, (Reported) Entered as Reported by: LINH MURCIA on 11/08/21 1033 Omeprazole (Omeprazole) 40 Mg Capsule.dr, 40 MG PO HS, (Reported) Entered as Reported by: LINH MURCIA on 10/25/21 1043 Ondansetron (Ondansetron Odt) 4 Mg Tab.rapdis, 4 MG PO Q6H PRN for NAUSEA/VOMITING-1ST LINE, (Reported) Entered as Reported by: LINH MURCIA on 11/08/21 1033 Pregabalin (Pregabalin) 75 Mg Capsule, 75 MG PO HS, (Reported) Entered as Reported by: MICHAEL NAVAS on 11/08/21 0819 Sotalol HCl (Sotalol) 80 Mg Tablet, 80 MG PO BID Prescribed by: ROSALINDA PIÑA JR, MD on 11/09/21 1524 Sucralfate (Sucralfate) 1 Gram Tablet, 1 GM PO QID, (Reported) Entered as Reported by: GRAZYNA CUMMINGS on 11/03/212044 [Pepcid Complete] , 1 EA PO BID PRN for INDIGESTION, (Reported) Entered as Reported by: LINH MURCIA on 11/08/21 1033 Review of Systems Review of Systems Constitutional: No fever EENTM: No Symptoms Reported Respiratory: See HPI Cardiovascular: See HPI Gastrointestinal: No Symptoms Reported Genitourinary: No Symptoms Reported Musculoskeletal: no symptoms reported Skin: no symptoms reported Psychiatric/Neurological: Anxiety Endocrine: No Symptoms Reported Hematologic/Lymphatic: No Symptoms Reported Past Miqwehq-Erdxbg-Nunzdi Hx Patient Social History Tobacco Use?: No Immunizations Up To Date First/Initial COVID19 Vaccinat: Yes Second COVID19 Vaccination Steve: Yes Third COVID19 Vaccination Date: Yes Past Medical History Surgery/Hospitalization HX: Hypothyroidism; Anxiety; High Cholesterol; Obesity; NSVT; Cardiac cath, pAfib Surgeries: No Cardiac Respiratory: No Sleep Apnea Currently Using CPAP: No Currently Using BIPAP: No Cardiac: No High Cholesterol, Hypertension, Irregular Heartbeat Neurological: No Genitourinary: No Gastrointestinal: No Musculoskeletal: No Endocrine: No HEENT: No Cancer: No Psychosocial: No Integumentary: No Blood Disorders: No Physical Exam Vital Signs Vital Signs - First Documented 08/29/22 19:40 Temp 36.9 Pulse 118 Resp 15 B/P (MAP) 180/110 (133) Pulse Ox 96 O2 Delivery Room Air Capillary Refill : Height, Weight, BMI Height: '" Weight: lbs. oz. kg; 48.00 BMI Method: General Appearance: Anxious, Obese HEENT: PERRL/EOMI, Normal ENT Inspection, Pharynx Normal Neck: Full Range of Motion, Normal Inspection, Non Tender, Supple Respiratory: Chest Non Tender, Lungs Clear, Normal Breath Sounds, No Accessory Muscle Use, No Respiratory Distress Cardiovascular: No Edema, Normal Peripheral Pulses, Irregularly Irregular, Tachycardia Gastrointestinal: Normal Bowel Sounds, Non Tender, Soft; No Distended, No Gua rding Extremity: Normal Capillary Refill, Normal Inspection, Normal Range of Motion, Non Tender, No Calf Tenderness, No Pedal Edema Neurologic/Psychiatric: Alert, No Motor/Sensory Deficits, Normal Mood/Affect Skin: Normal Color, Warm/Dry Progress/Results/Core Measures Results/Orders Lab Results Laboratory Tests Test 08/29/22 19:52 Range/Units White Blood Count 9.9 4.3-11.0 10^3/uL Red Blood Count 5.13 4.30-5.52 10^6/uL Hemoglobin 15.5 13.3-17.7 g/dL Hematocrit 46 40-54 % Mean Corpuscular Volume 89 80-99 fL Mean Corpuscular Hemoglobin 30 25-34 pg Mean Corpuscular Hemoglobin Concent 34 32-36 g/dL Red Cell Distribution Width 13.5 10.0-14.5 % Platelet Count 289 130-400 10^3/uL Mean Platelet Volume 9.0 9.0-12.2 fL Immature Granulocyte % (Auto) 0 % Neutrophils (%) (Auto) 55 42-75 % Lymphocytes (%) (Auto) 31 12-44 % Monocytes (%) (Auto) 10 0-12 % Eosinophils (%) (Auto) 4 0-10 % Basophils (%) (Auto) 1 0-10 % Neutrophils # (Auto) 5.4 1.8-7.8 10^3/uL Lymphocytes # (Auto) 3.0 1.0-4.0 10^3/uL Monocytes # (Auto) 1.0 0.0-1.0 10^3/uL Eosinophils # (Auto) 0.4 H 0.0-0.3 10^3/uL Basophils # (Auto) 0.1 0.0-0.1 10^3/uL Immature Granulocyte # (Auto) 0.0 0.0-0.1 10^3/uL Prothrombin Time 12.1 L 12.2-14.7 SEC INR Comment 0.9 0.8-1.4 Activated Partial Thromboplast Time 27 24-35 SEC Sodium Level 136 135-145 MMOL/L Potassium Level 4.0 3.6-5.0 MMOL/L Chloride Level 99 98-107 MMOL/L Carbon Dioxide Level 26 21-32 MMOL/L Anion Gap 11 5-14 MMOL/L Blood Urea Nitrogen 11 7-18 MG/DL Creatinine 1.05 0.60-1.30 MG/DL Estimat Glomerular Filtration Rate 85 BUN/Creatinine Ratio 10 Glucose Level 103 70-105 MG/DL Calcium Level 9.1 8.5-10.1 MG/DL Corrected Calcium 8.9 8.5-10.1 MG/DL Magnesium Level 2.1 1.6-2.4 MG/DL Total Bilirubin 0.4 0.1-1.0 MG/DL Aspartate Amino Transf (AST/SGOT) 24 5-34 U/L Alanine Aminotransferase (ALT/SGPT) 31 0-55 U/L Alkaline Phosphatase 90 40-136 U/L Troponin I < 0.30 <0.30 NG/ML Pro-B-Type Natriuretic Peptide 127.2 H <125.0 PG/ML Total Protein 7.7 6.4-8.2 GM/DL Albumin 4.3 3.2-4.5 GM/DL Lipase 31 8-78 U/L My Orders Orders - RUBY CENTENO MD Cbc With Automated Diff (08/29/22 19:48) Magnesium (08/29/22 19:48) Chest 1 View Ap/Pa Only (08/29/22 19:48) Ekg Tracing (08/29/22 19:48) Comprehensive Metabolic Panel (08/29/22 19:48) Protime With Inr (08/29/22 19:48) Partial Thromboplastin Time (08/29/22 19:48) O2 (08/29/22 19:48) Monitor-Rhythm Ecg Trace Only (08/29/22 19:48) Aspirin Chewable Tablet (Baby Aspirin Ch (08/29/22 20:00) Ed Iv/Invasive Line Start (08/29/22 19:48) Lipase (08/29/22 19:48) Troponin I Fs (08/29/22 19:48) Probnp Fs (08/29/22 19:48) Ns Iv 1000 Ml (Sodium Chloride 0.9%) (08/29/22 19:48) Diltiazem Injection (Cardizem Injection) (08/29/22 20:00) Ns (Ivpb) (Sodium C... W/Diltiazem Iv Fo (08/29/22 19:48) Enoxaparin Injection (Lovenox Injection) (08/29/22 20:00) Lorazepam Injection (Ativan Injection) (08/29/22 19:53) Ondansetron Injection (Zofran Injectio (08/29/22 20:15) Famotidine Tablet (Pepcid Tablet) (08/29/22 20:11) Antacid Suspension (Mylanta Suspension (08/29/22 20:15) Diltiazem Drip Pre-Mix (Cardizem Drip Pr (08/29/22 20:14) Ekg Tracing (08/29/22 21:00) Medications Given in ED Current Medications Medications Dose Ordered Sig/Reagan Route Start Time Stop Time Status Last Admin Dose Admin Al Hydrox/Mg Hydrox/Simethicone 30 ml ONCE ONCE PO 08/29/22 20:15 08/29/22 20:16 DC 08/29/22 20:20 30 ML Aspirin 243 mg ONCE ONCE PO 08/29/22 20:00 08/29/22 20:01 DC 08/29/22 20:04 243 MG Diltiazem HCl 20 mg ONCE ONCE IVP 08/29/22 20:00 08/29/22 20:01 DC 08/29/22 20:04 20 MG Enoxaparin Sodium 150 mg ONCE ONCE SC 08/29/22 20:00 08/29/22 20:01 DC 08/29/22 20:04 150 MG Ondansetron HCl 4 mg ONCE ONCE IVP 08/29/22 20:15 08/29/22 20:16 DC 08/29/22 20:20 4 MG Vital Signs/I&O 08/29/22 08/29/22 08/29/22 19:40 20:04 20:21 Temp 36.9 Pulse 118 130 92 Resp 15 B/P (MAP) 180/110 (133) 180/110 148/89 Pulse Ox 96 O2 Delivery Room Air Progress Progress Note : Progress Note 52-year-old male with above history coming in due to general malaise and chest discomfort. The patient was tachycardic in A-fib with RVR on arrival. EKG with no acute ischemic changes showing A-fib with RVR on my interpretation. An IV was placed and basic labs were obtained including cardiac biomarkers. They were significant for normal white blood cell count, normal hemoglobin, normal electrolytes including magnesium and potassium, normal creatinine, negative troponin, normal lipase. Chest x-ray ordered and interpreted by me showing no obvious pneumonia, no pneumothorax, no pleural effusion. Patient was given a bolus of IV fluids followed by Cardizem bolus and drip. He also received aspirin, Lovenox, and a GI cocktail. He was almost immediately rate controlled into the 80s and feeling better. I had him take his oral sotalol and turned off the Cardizem drip 30 minutes after this he continues to be rate controlled. We continue to monitor him after the Cardizem was off, and he continued to be rate controlled. I believe he is stable for discharge with outpatient follow-up, I will send a prescription for Eliquis in case he needs to have a cardioversion later this week. 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 Given I am unsure when he went into A-fib, we will not cardiovert today. I believe he is otherwise stable for discharge with outpatient follow- up. He was sent home with strict return precautions. Initial ECG Impression Date: August 29, 2022 Initial ECG Impression Time: 19:41 Initial ECG Rate: 117 Initial ECG Rhythm: A Fib/Flutter Comment Narrow QRS, normal axis, no significant ST elevation, subtle depression in the precordial leads which is nonspecific EKG : EKG Time: 20:59 Rate: 92 Rhythm: A Fib/Flutter Comment Still in A-fib, but now rate controlled Diagnostic Imaging Diagonstic Imaging: Xray (chest) Comments NAME: [facility] REC#: [id number] PT STATUS: REG ER : 1970 PHYSICIAN: RUBY CENTENO MD ADMIT DATE: 08/29/22/ER FS Draft Date of Exam:08/29/22 CHEST 1 VIEW AP/PA ONLY INDICATION: Chest pain AP upright portable view of the chest is obtained with comparison made to the study of 01/24/2022. There is stable mild cardiomegaly. Otherwise, the lungs are clear. There is no significant pulmonary venous congestion or overt edema. IMPRESSION: Mild cardiomegaly without other evidence of acute abnormality. Dictated on workstation # [id number] Dict: 08/29/221999 Trans: 08/29/222007 JANIE [id number] Interpreted by: ELIZABETH FAIRBANKS MD Electronically signed by: Departure Impression Primary Impression: Atrial fibrillation with rapid ventricular response Disposition: 01 HOME, SELF-CARE Condition: Stable Departure-Patient Inst. Decision time for Depature: 21:40 Referrals: COLIN LUA MD (PCP/Family) Primary Care Physician Patient Instructions: Atrial Fibrillation (DC) Add. Discharge Instructions: You are in atrial fibrillation with a rapid ventricular response which just means your heart rate was more elevated. We will start you on a blood thinner until you follow-up with your routing machine operator so they can decide what to do from there. If you stay in A-fib, they may want to try to shock you out of it, and if that is the case, you would need to be on blood thinners. We would recommend calling their office tomorrow and letting them know what happened tonight and see if they have any sooner recommendations Scripts Apixaban (Eliquis) 5 Mg Tablet 5 MG PO BID for 30 Days, #60 TAB Prov: RUBY CENTENO MD 08/29/22 Work/School Note: Family Work Note, Patient Received Medical Care In the Emergency Department On: August 29, 2022 Patient Will Be Able to Return to Work/School On: August 31, 2022 Work Release Form Date Seen in the Emergency Department: August 29, 2022 Return to Work: August 31, 2022 Restrictions: No Restrictions RUBY CENTENO MD August 29, 2022 19:56
[2022-08-29] MEDS ORDERED: ASPIRIN 81 MG CHEW (CHILDREN'S ASA) PO ONE (20:00)
[2022-08-29] MEDS ORDERED: ENOXAPARIN 80 MG/0.8 ML (LOVENOX) SYR SC ONE (20:00)
[2022-08-29 20:01] LABS: BASOPHILS # (AUTO) 0.1 10^3/uL (0.0-0.1); BASOPHILS % (AUTO) 1 % (0-10); EOSINOPHILS # (AUTO) 0.4 10^3/uL (0.0-0.3); EOSINOPHILS % (AUTO) 4 % (0-10); HEMATOCRIT 46 % (40-54); HEMOGLOBIN 15.5 g/dL (13.3-17.7); LYMPHOCYTES % (AUTO) 31 % (12-44); MEAN CORPUSCULAR HEMOGLOBIN 30 pg (25-34); MEAN CORPUSCULAR HGB CONC 34 g/dL (32-36); MEAN CORPUSCULAR VOLUME 89 fL (80-99); MONOCYTES % (AUTO) 10 % (0-12); NEUTROPHILS # (AUTO) 5.4 10^3/uL (1.8-7.8); NEUTROPHILS % (AUTO) 55 % (42-75); PLATELET COUNT 289 10^3/uL (130-400); WHITE BLOOD COUNT 9.9 10^3/uL (4.3-11.0)
--- NOTE | 2022-08-29 20:10 | Diagnostic Imaging Report ---
INDICATION: Chest pain AP upright portable view of the chest is obtained with comparison made to the study of 01/24/2022. There is stable mild cardiomegaly. Otherwise, the lungs are clear. There is no significant pulmonary venous congestion or overt edema. IMPRESSION: Mild cardiomegaly without other evidence of acute abnormality. Dictated by: Dictated on workstation # [id number]
[2022-08-29] MEDS ORDERED: FAMOTIDINE 20 MG (PEPCID) TABLET PO STA (20:11)
[2022-08-29] MEDS ORDERED: dilTIAZem DRIP PRE-MIX 125 ML IV ONE (20:14)
[2022-08-29] MEDS ORDERED: ANTACID SUSP 30 ML UDC (MYLANTA) PO ONE (20:15)
[2022-08-29] MEDS ORDERED: ONDANSETRON 4 MG/2 ML (SDV) Z0FRAN IVP ONE (20:15)
[2022-08-29 20:19] LABS: INR 0.9 (0.8-1.4); PROTHROMBIN TIME PATIENT 12.1 SEC (12.2-14.7)
[2022-08-29 20:22] LABS: SODIUM 136 MMOL/L (135-145)
[2022-08-29 20:23] LABS: BUN/CREATININE RATIO 10; CARBON DIOXIDE 26 MMOL/L (21-32); CHLORIDE 99 MMOL/L (98-107); CREATININE SERUM 1.05 MG/DL (0.60-1.30); GFR ESTIMATED 85
[2022-08-29 20:24] LABS: CALCIUM 9.1 MG/DL (8.5-10.1); GLUCOSE 103 MG/DL (70-105)
[2022-08-29 20:25] LABS: ALKALINE PHOSPHATASE 90 U/L (40-136); BILIRUBIN,TOTAL 0.4 MG/DL (0.1-1.0); MAGNESIUM 2.1 MG/DL (1.6-2.4)
[2022-08-29 20:26] LABS: ALANINE AMINOTRANSFERASE 31 U/L (0-55)
[2022-08-29 20:27] LABS: ALBUMIN 4.3 GM/DL (3.2-4.5); TOTAL PROTEIN 7.7 GM/DL (6.4-8.2)
[2022-08-29 20:28] LABS: LIPASE 31 U/L (8-78)
[2022-08-29] MEDS ORDERED: APIX5TAB PO (21:04)
[2022-08-29 21:36] VITALS: BP 162/98
== END 2022-08-29 21:37 | disposition home or self-care (01) ==
LOC: EDUNIT# 19:36 → ER FS 19:38
DX: I48.91 Unspecified atrial fibrillation (principal); E66.9 Obesity, unspecified; Z68.42 Body mass index [BMI] 45.0-49.9, adult; Z98.61 Coronary angioplasty status; Z79.899 Other long term (current) drug therapy; Z79.82 Long term (current) use of aspirin
CPT/HCPCS: 36415; 71045; 80053; 83690; 83735; 83880; 84484; 85025; 85610; 85730; 93041

== ENCOUNTER 2022-10-07 10:32 | Emergency (ER) | payer BC ==
[~2022-10-07] VITALS: Ht 177.8 cm; Wt 151.0 kg
--- NOTE | 2022-10-07 10:40 | ED Chest Pain ---
General Stated Complaint: CHEST DISCOMFORT History of Present Illness Date Seen by Provider: Oct 07, 2022 Time Seen by Provider: 10:36 Initial Comments 52 yr M with PMH of A-Fib on Sotalol/ Asthma, controlled/ obesity, is here with c/o retrosternal chest pain, nausea, and anxiety for the past 2 to 3 days. 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 Pt started having bad GERD symptoms on October 03. Pt is a nonsmoker, does not drink. Denies fever and chills, URI symptoms, abdominal pain, diaphoresis, vomiting , diarrhea. No recent sick contacts.Pt is scheduled to have an ablation in December at . Allergies and Home Medications Allergies Coded Allergies: No Known Drug Allergies (Unverified , 11/04/21) Patient Home Medication List Home Medication List Reviewed: Yes Albuterol Sulfate (Ventolin Hfa) 1 Puff Puff, 2 PUFF IH Q4H PRN for SHORTNESS OF BREATH, (Reported) Entered as Reported by: LINH MURCIA on 10/25/21 1043 Alprazolam (Alprazolam) 0.5 Mg Tablet, 0.5 MG PO HS, (Reported) Entered as Reported by: LINH MURCIA on 10/25/21 1043 Apixaban (Eliquis) 5 Mg Tablet, 5 MG PO BID Prescribed by: ROSALINDA PIÑA JR, MD on 11/09/21 1305 Apixaban (Eliquis) 5 Mg Tablet, 5 MG PO BID Prescribed by: RUBY CENTENO on 08/29/22 2104 Aspirin (Aspirin EC) 81 Mg Tablet.dr, 81 MG PO DAILY, (Reported) Entered as Reported by: LINH MURCIA on 10/25/21 1043 Atorvastatin Calcium (Atorvastatin Calcium) 10 Mg Tablet, 10 MG PO HS, (Reported) Entered as Reported by: LINH MURCIA on 10/25/21 1043 Citalopram Hydrobromide (Citalopram HBr) 10 Mg Tablet, 10 MG PO DAILY, (Reported) Entered as Reported by: LINH MURCIA on 11/08/21 1033 Diltiazem HCl (Cardizem Cd) 240 Mg Cap.er.24h, 240 MG PO DAILY, (Reported) Entered as Reported by: LINH MURCIA on 11/08/21 1033 Fluticasone/Salmeterol (Advair 250-50 Diskus) 250 Mcg-50 Mcg/Dose Blst.w.dev, 1 PUFF IH BID, (Reported) Entered as Reported by: LINH MURCIA on 10/25/21 1043 Levothyroxine Sodium (Levothyroxine Sodium) 75 Mcg Tablet, 75 MCG PO DAILY, (Reported) Entered as Reported by: LINH MURCIA on 11/08/21 1033 Omeprazole (Omeprazole) 40 Mg Capsule.dr, 40 MG PO HS, (Reported) Entered as Reported by: LINH MURCIA on 10/25/21 1043 Ondansetron (Ondansetron Odt) 4 Mg Tab.rapdis, 4 MG PO Q6H PRN for NAUSEA/VOMITING-1ST LINE, (Reported) Entered as Reported by: LINH MURCIA on 11/08/21 1033 Pregabalin (Pregabalin) 75 Mg Capsule, 75 MG PO HS, (Reported) Entered as Reported by: MICHAEL NAVAS on 11/08/21 0819 Sotalol HCl (Sotalol) 80 Mg Tablet, 80 MG PO BID Prescribed by: ROSALINDA PIÑA JR, MD on 11/09/21 1524 Sucralfate (Sucralfate) 1 Gram Tablet, 1 GM PO QID, (Reported) Entered as Reported by: GRAZYNA CUMMINGS on 11/03/212044 [Pepcid Complete] , 1 EA PO BID PRN for INDIGESTION, (Reported) Entered as Reported by: LINH MURCIA on 11/08/21 1033 Review of Systems Review of Systems Constitutional: no symptoms reported EENTM: No Symptoms Reported Respiratory: No Symptoms Reported Cardiovascular: See HPI, Chest Pain Gastrointestinal: Nausea Genitourinary: No Symptoms Reported Musculoskeletal: no symptoms reported Skin: no symptoms reported Psychiatric/Neurological: Anxiety Endocrine: No Symptoms Reported Hematologic/Lymphatic: No Symptoms Reported Past Btgamtx-[id number]-Hpmvtv Hx Immunizations Up To Date First/Initial COVID19 Vaccinat: Yes Second COVID19 Vaccination Steve: Yes Third COVID19 Vaccination Date: Yes Past Medical History Surgery/Hospitalization HX: Hypothyroidism; Anxiety; High Cholesterol; Obesity; NSVT; Cardiac cath, pAfib Surgeries: No Cardiac Respiratory: No Sleep Apnea Currently Using CPAP: No Currently Using BIPAP: No Cardiac: No High Cholesterol, Hypertension, Irregular Heartbeat Neurological: No Genitourinary: No Gastrointestinal: No Musculoskeletal: No Endocrine: No HEENT: No Cancer: No Psychosocial: No Integumentary: No Blood Disorders: No Physical Exam Vital Signs Vital Signs - First Documented 10/07/22 10:32 Temp 35.8 Pulse 69 Resp 20 B/P (MAP) 137/69 (91) Pulse Ox 97 O2 Delivery Room Air Capillary Refill : Height, Weight, BMI Height: '" Weight: lbs. oz. kg; 46.00 BMI Method: General Appearance: No Apparent Distress, WD/WN, Anxious, Obese HEENT: PERRL/EOMI, TMs Normal, Normal ENT Inspection Neck: Full Range of Motion, Normal Inspection, Non Tender Respiratory: Chest Non Tender, Lungs Clear, Normal Breath Sounds, No Accessory Muscle Use, No Respiratory Distress Cardiovascular: Regular Rate, Rhythm, No Edema Gastrointestinal: Normal Bowel Sounds, Non Tender, Soft Neurologic/Psychiatric: Alert, Oriented x3, No Motor/Sensory Deficits Skin: Normal Color Progress/Results/Core Measures Results/Orders Lab Results Laboratory Tests Test 10/07/22 10:35 10/07/22 12:35 Range/Units White Blood Count 7.3 4.3-11.0 10^3/uL Red Blood Count 4.95 4.30-5.52 10^6/uL Hemoglobin 15.2 13.3-17.7 g/dL Hematocrit 44 40-54 % Mean Corpuscular Volume 89 80-99 fL Mean Corpuscular Hemoglobin 31 25-34 pg Mean Corpuscular Hemoglobin Concent 34 32-36 g/dL Red Cell Distribution Width 13.7 10.0-14.5 % Platelet Count 247 130-400 10^3/uL Mean Platelet Volume 9.8 9.0-12.2 fL Immature Granulocyte % (Auto) 0 % Neutrophils (%) (Auto) 64 42-75 % Lymphocytes (%) (Auto) 23 12-44 % Monocytes (%) (Auto) 8 0-12 % Eosinophils (%) (Auto) 4 0-10 % Basophils (%) (Auto) 1 0-10 % Neutrophils # (Auto) 4.7 1.8-7.8 10^3/uL Lymphocytes # (Auto) 1.7 1.0-4.0 10^3/uL Monocytes # (Auto) 0.6 0.0-1.0 10^3/uL Eosinophils # (Auto) 0.3 0.0-0.3 10^3/uL Basophils # (Auto) 0.1 0.0-0.1 10^3/uL Immature Granulocyte # (Auto) 0.0 0.0-0.1 10^3/uL Prothrombin Time 12.2 12.2-14.7 SEC INR Comment 0.9 0.8-1.4 Activated Partial Thromboplast Time 20 L 24-35 SEC Urine Color YELLOW Urine Clarity CLEAR Urine pH 7.5 5-9 Urine Specific [place] 1.010 L 1.016-1.022 Urine Protein NEGATIVE NEGATIVE Urine Glucose (UA) NEGATIVE NEGATIVE Urine Ketones NEGATIVE NEGATIVE Urine Nitrite NEGATIVE NEGATIVE Urine Bilirubin NEGATIVE NEGATIVE Urine Urobilinogen 0.2 < = 1.0 MG/DL Urine Leukocyte Esterase NEGATIVE NEGATIVE Urine RBC (Auto) NEGATIVE NEGATIVE Urine RBC NONE /HPF Urine WBC NONE /HPF Urine Crystals NONE /LPF Urine Bacteria NEGATIVE /HPF Urine Casts NONE /LPF Urine Mucus NEGATIVE /LPF Urine Culture Indicated NO Sodium Level 141 135-145 MMOL/L Potassium Level 4.1 3.6-5.0 MMOL/L Chloride Level 102 98-107 MMOL/L Carbon Dioxide Level 27 21-32 MMOL/L Anion Gap 12 5-14 MMOL/L Blood Urea Nitrogen 7 7-18 MG/DL Creatinine 0.88 0.60-1.30 MG/DL Estimat Glomerular Filtration Rate 103 BUN/Creatinine Ratio 8 Glucose Level 102 70-105 MG/DL Calcium Level 9.6 8.5-10.1 MG/DL Corrected Calcium 9.3 8.5-10.1 MG/DL Magnesium Level 2.3 1.6-2.4 MG/DL Total Bilirubin 0.5 0.1-1.0 MG/DL Aspartate Amino Transf (AST/SGOT) 28 5-34 U/L Alanine Aminotransferase (ALT/SGPT) 34 0-55 U/L Alkaline Phosphatase 85 40-136 U/L Troponin I < 0.30 < 0.30 <0.30 NG/ML Pro-B-Type Natriuretic Peptide 328.3 H <125.0 PG/ML Total Protein 7.6 6.4-8.2 GM/DL Albumin 4.4 3.2-4.5 GM/DL Urine Opiates Screen NEGATIVE NEGATIVE Urine Oxycodone Screen NEGATIVE NEGATIVE Urine Methadone Screen NEGATIVE NEGATIVE Urine Propoxyphene Screen NEGATIVE NEGATIVE Urine Barbiturates Screen NEGATIVE NEGATIVE Ur Tricyclic Antidepressants Screen NEGATIVE NEGATIVE Urine Phencyclidine Screen NEGATIVE NEGATIVE Urine Amphetamines Screen NEGATIVE NEGATIVE Urine Methamphetamines Screen NEGATIVE NEGATIVE Urine Benzodiazepines Screen NEGATIVE NEGATIVE Urine Cocaine Screen NEGATIVE NEGATIVE Urine Cannabinoids Screen NEGATIVE NEGATIVE My Orders Orders - NERY MCCRAY MD Chest 1 View Ap/Pa Only (10/07/22 10:40) Continuous Ekg Monitoring (10/07/22 10:40) Ekg Tracing (10/07/22 10:40) Aspirin Chewable Tablet (Baby Aspirin Ch (10/07/22 10:45) Cbc With Automated Diff (10/07/22 10:41) Comprehensive Metabolic Panel (10/07/22 10:41) Drug Screen Stat (Urine) (10/07/22 10:41) Magnesium (10/07/22 10:41) Protime With Inr (10/07/22 10:41) Partial Thromboplastin Time (10/07/22 10:41) Ua Culture If Indicated (10/07/22 10:41) Probnp Fs (10/07/22 10:41) Troponin I Fs (10/07/22 10:41) Antacid Suspension (Mylanta Suspension (10/07/22 12:00) Lidocaine 2% Viscous 15 Ml (Xylocaine Vi (10/07/22 12:00) Diphenhydramine Oral Soln (Benadryl Oral (10/07/22 12:00) Ekg Tracing (10/07/22 12:19) Troponin I Fs (10/07/22 12:19) Medications Given in ED Current Medications Medications Dose Ordered Sig/Reagan Route Start Time Stop Time Status Last Admin Dose Admin Al Hydrox/Mg Hydrox/Simethicone 30 ml ONCE ONCE PO 10/07/22 12:00 10/07/22 12:01 DC 10/07/22 12:01 30 ML Aspirin 324 mg ONCE ONCE PO 10/07/22 10:45 10/07/22 10:46 DC 10/07/22 10:59 324 MG Diphenhydramine HCl 12.5 mg ONCE ONCE PO 10/07/22 12:00 10/07/22 12:01 DC 10/07/22 12:01 12.5 MG Vital Signs/I&O 10/07/22 10:32 Temp 35.8 Pulse 69 Resp 20 B/P (MAP) 137/69 (91) Pulse Ox 97 O2 Delivery Room Air Progress Progress Note : Progress Note 1. ACS RULE OUT: ACUTE GERD EXACERBATION - CXR: no acute findings - EKG x 2: NSR, non-ishemic - Troponin x2: undetected - CBC/ CMP: unremarkable - UA/ UDS: negative - ASA 324mg given upon initial presentation -GI cocktail given and all the patient's symptoms resolved completely, indicating patient has a GERD exacerbation. -Advised to follow-up with cardiology and PCP within the next 7 days. -The patient was seen in the ED, and treated appropriately to presentation at a specific point in time. Patient is informed that there is a possibility that disease and illness can evolve and change in acuity rapidly or slowly after patient is discharged from the ER. Precautionary advice given to the patient for immediate return to ER if symptoms worsen or do not resolve, and to seek emergency care sooner rather than later. Pt also advised on the importance of PCP follow up and compliance with management and follow up plan with PCP and/or specialist, as this is part of the management plan. Pt verbally expressed understanding. Initial ECG Impression Date: Oct 07, 2022 Initial ECG Impression Time: 10:36 Initial ECG Rate: 77 Initial ECG Rhythm: Normal Sinus Initial ECG Intervals: Normal Initial ECG Impression: Normal Initial ECG Comparisson: No Previous ECG Available EKG : EKG Time: 12:25 Rate: 61 Rhythm: Normal Sinus Intervals: Normal ECG Comparisson: Unchanged ECG Impression: Normal Diagnostic Imaging Diagonstic Imaging: Xray Plain Films/CT/US/NM/MRI: chest Comments [facility]. [place], [place] NAME: [facility] REC#: [id number] PT STATUS: REG ER : 1970 PHYSICIAN: NERY MCCRAY MD ADMIT DATE: 10/07/22/ER FS Draft Date of Exam:10/07/22 CHEST 1 VIEW AP/PA ONLY EXAMINATION: Chest radiograph, portable AP view. DATE: 10/07/2022 10:56 AM INDICATION: 52-year-old male, chest pain. COMPARISON: August 29, 2022. FINDINGS: Heart size and mediastinal contours are unremarkable. There is no identified pneumothorax. There is no large pleural effusion. There is no identified focal airspace consolidation. IMPRESSION: No identified acute cardiopulmonary abnormality. Dictated on workstation # [id number] Dict: 10/07/22 1109 Trans: 10/07/22 1115 [facility] [id number] Interpreted by: JEISON CURTIS MD Electronically signed by: Departure Impression Primary Impression: GERD (gastroesophageal reflux disease) Qualified Codes: K21.9 - Gastro-esophageal reflux disease without esophagitis Additional Impression: Ruled out for myocardial infarction Disposition: HOME, SELF-CARE Condition: Improved Departure-Patient Inst. Referrals: COLIN LUA MD (PCP/Family) Primary Care Physician Patient Instructions: Acid reflux and gastroesophageal reflux disease in adults, Chest Pain That Is Not Caused by the Heart (DC), Heart Healthy Diet Add. Discharge Instructions: -GI cocktail given and all the patient's symptoms resolved completely, indicating patient has a GERD exacerbation. -Advised to follow-up with cardiology and PCP within the next 7 days. NERY MCCRAY MD Oct 07, 2022 10:39
[2022-10-07] MEDS ORDERED: ASPIRIN 81 MG CHEW (CHILDREN'S ASA) PO ONE (10:45)
[2022-10-07 10:53] LABS: BASOPHILS # (AUTO) 0.1 10^3/uL (0.0-0.1); BASOPHILS % (AUTO) 1 % (0-10); EOSINOPHILS # (AUTO) 0.3 10^3/uL (0.0-0.3); EOSINOPHILS % (AUTO) 4 % (0-10); HEMATOCRIT 44 % (40-54); HEMOGLOBIN 15.2 g/dL (13.3-17.7); LYMPHOCYTES # (AUTO) 1.7 10^3/uL (1.0-4.0); LYMPHOCYTES % (AUTO) 23 % (12-44); MEAN CORPUSCULAR HEMOGLOBIN 31 pg (25-34); MEAN CORPUSCULAR HGB CONC 34 g/dL (32-36); MEAN CORPUSCULAR VOLUME 89 fL (80-99); MEAN PLATELET VOLUME 9.8 fL (9.0-12.2); MONOCYTES # (AUTO) 0.6 10^3/uL (0.0-1.0); MONOCYTES % (AUTO) 8 % (0-12); NEUTROPHILS # (AUTO) 4.7 10^3/uL (1.8-7.8); NEUTROPHILS % (AUTO) 64 % (42-75); PLATELET COUNT 247 10^3/uL (130-400); WHITE BLOOD COUNT 7.3 10^3/uL (4.3-11.0)
[2022-10-07 10:55] LABS: BILIRUBIN,URINE NEGATIVE (NEGATIVE); CLARITY,URINE CLEAR; COLOR,URINE YELLOW; GLUCOSE, URINE (UA) NEGATIVE (NEGATIVE); KETONES,URINE NEGATIVE (NEGATIVE); LEUKOCYTE ESTERASE ,URINE NEGATIVE (NEGATIVE); NITRITE,URINE NEGATIVE (NEGATIVE); PH,URINE 7.5 (5-9); PROTEIN,URINE NEGATIVE (NEGATIVE)
[2022-10-07 11:05] LABS: BACTERIA,URINE NEGATIVE /HPF
[2022-10-07 11:13] LABS: AMPHETAMINE SCREEN, URINE NEGATIVE (NEGATIVE); BARBITURATE SCREEN URINE NEGATIVE (NEGATIVE); BENZODIAZEPINES SCREEN URINE NEGATIVE (NEGATIVE); CANNABINOID SCREEN, URINE NEGATIVE (NEGATIVE); COCAINE SCREEN URINE NEGATIVE (NEGATIVE); METHADONE STAT NEGATIVE (NEGATIVE); OPIATE SCREEN URINE NEGATIVE (NEGATIVE); OXYCODONE STAT NEGATIVE (NEGATIVE); PROPOXYPHENE STAT NEGATIVE (NEGATIVE); TRICYCLIC ANTIDEPRESSANTS SCRE NEGATIVE (NEGATIVE)
[2022-10-07 11:15] LABS: INR 0.9 (0.8-1.4); PROTHROMBIN TIME PATIENT 12.2 SEC (12.2-14.7)
--- NOTE | 2022-10-07 11:15 | Diagnostic Imaging Report ---
EXAMINATION: Chest radiograph, portable AP view. DATE: 10/07/2022 10:56 AM INDICATION: 52-year-old male, chest pain. COMPARISON: August 29, 2022. FINDINGS: Heart size and mediastinal contours are unremarkable. There is no identified pneumothorax. There is no large pleural effusion. There is no identified focal airspace consolidation. IMPRESSION: No identified acute cardiopulmonary abnormality. Dictated by: Dictated on workstation # [id number]
[2022-10-07] MEDS ORDERED: FAMOTIDINE 20MG/2ML IV (PEPCID) IV STA (11:16)
[2022-10-07] MEDS ORDERED: ONDANSETRON 4 MG (ZOFRAN) ORAL DISSOLVE TAB SL STA (11:25)
[2022-10-07] MEDS ORDERED: FAMOTIDINE 20 MG (PEPCID) TABLET PO STA (11:25)
[2022-10-07 11:27] LABS: ALANINE AMINOTRANSFERASE 34 U/L (0-55); ALBUMIN 4.4 GM/DL (3.2-4.5); ALKALINE PHOSPHATASE 85 U/L (40-136); BILIRUBIN,TOTAL 0.5 MG/DL (0.1-1.0); BUN/CREATININE RATIO 8; CALCIUM 9.6 MG/DL (8.5-10.1); CARBON DIOXIDE 27 MMOL/L (21-32); CHLORIDE 102 MMOL/L (98-107); CREATININE SERUM 0.88 MG/DL (0.60-1.30); GFR ESTIMATED 103; GLUCOSE 102 MG/DL (70-105); MAGNESIUM 2.3 MG/DL (1.6-2.4); POTASSIUM 4.1 MMOL/L (3.6-5.0); SODIUM 141 MMOL/L (135-145); TOTAL PROTEIN 7.6 GM/DL (6.4-8.2)
[2022-10-07] MEDS ORDERED: ONDANSETRON 4 MG/2 ML (SDV) Z0FRAN IVP ONE (11:30)
[2022-10-07] MEDS ORDERED: LIDOCAINE 2% VISCOUS 15 ML UDC PO ONE (12:00)
[2022-10-07] MEDS ORDERED: diphenhydrAMINE 12.5 MG/5 ML UDC (BENADRYL) PO ONE (12:00)
[2022-10-07] MEDS ORDERED: ANTACID SUSP 30 ML UDC (MYLANTA) PO ONE (12:00)
[2022-10-07 13:07] VITALS: BP 137/76
== END 2022-10-07 13:09 | disposition home or self-care (01) ==
LOC: EDUNIT# 10:32 → ER FS 10:33
DX: K21.9 Gastro-esophageal reflux disease without esophagitis (principal); I48.0 Paroxysmal atrial fibrillation; E66.9 Obesity, unspecified; Z68.42 Body mass index [BMI] 45.0-49.9, adult; Z98.61 Coronary angioplasty status; Z79.82 Long term (current) use of aspirin; Z79.899 Other long term (current) drug therapy
CPT/HCPCS: 36415; 71045; 80053; 80306; 81000; 83735; 83880; 84484; 85025; 85610; 85730; 93005